=== PATIENT | male | born 1960 | race African-American/Black ===

== ENCOUNTER 2016-12-17 16:49 | Emergency (ER) | payer SELFPAY ==
[~2016-12-17] VITALS: Ht 182.9 cm; Wt 77.1 kg
[2016-12-17 18:30] LABS: BASO % 0.8 % (0.0-1.0); EOS # 0.3 K/mm3 (0.0-0.50); EOS % 5.2 % (0.0-3.0); LARGE UNSTAINED CELL # 0.2 K/mm3 (0.0-0.4); LARGE UNSTAINED CELL % 2.5 % (0.0-4.0); LYMPH # 1.3 K/mm3 (1.5-4.5); LYMPH % 20.9 % (24.0-44.0); MEAN CORPUSCULAR HEMOGLOBIN 32.6 pg (27.0-33.0); MEAN CORPUSCULAR HGB CONC 33.3 g/dl (32.0-36.5); MEAN CORPUSCULAR VOLUME 97.7 fl (80.0-96.0); MONO # 0.4 K/mm3 (0.0-0.8); MONO % 6.4 % (0.0-5.0); NEUTROPHILS % 64.2 % (36.0-66.0); PLATELET COUNT, AUTOMATED 270 k/mm3 (150-450); WHITE BLOOD COUNT 6.2 K/mm3 (4.0-10.0)
[2016-12-17 19:03] LABS: ALBUMIN 3.3 GM/DL (3.2-5.2); ALBUMIN/GLOBULIN RATIO 0.85 (1.00-1.93); ALKALINE PHOSPHATASE 103 U/L (45-117); ALT/SGPT 50 U/L (12-78); ANION GAP 5 MEQ/L (8-16); AST/SGOT 27 U/L (15-37); BILIRUBIN,DIRECT < 0.1 MG/DL (0.0-0.2); BILIRUBIN,TOTAL 0.3 MG/DL (0.2-1.0); BLOOD UREA NITROGEN 15 MG/DL (7-18); CALCIUM LEVEL 8.1 MG/DL (8.5-10.1); CARBON DIOXIDE LEVEL 29 MEQ/L (21-32); CHLORIDE LEVEL 107 MEQ/L (98-107); CREATININE FOR GFR 1.04 MG/DL (0.70-1.30); GLOMERULAR FILTRATION RATE > 60.0 (>56); GLUCOSE, FASTING 98 MG/DL (70-105); POTASSIUM SERUM 4.2 MEQ/L (3.5-5.1); SODIUM LEVEL 141 MEQ/L (136-145); T UPTAKE 38 % (33-40); THYROXINE (T4) 5.7 UG/DL (4.5-12.0); TOTAL PROTEIN 7.2 GM/DL (6.4-8.2)
[2016-12-17] MEDS ORDERED: HYDR25T PO (19:17)
[2016-12-17] MEDS ORDERED: PRED20TA PO (19:17)
[2016-12-17 19:30] VITALS: BP 143/93
== END 2016-12-17 19:37 | disposition home or self-care (01) ==
LOC: M ED 18:11
DX: L30.9 Dermatitis, unspecified (principal); F17.200 Nicotine dependence, unspecified, uncomplicated

== ENCOUNTER 2018-08-02 13:45 | Emergency (ER) | payer MEDICAID, SELFPAY ==
[~2018-08-02] VITALS: Ht 182.9 cm; Wt 77.3 kg
[~2018-08-02 13:45] MED LIST: HYDR-3363 PO; PRED20TA PO
[2018-08-02 14:15] LABS: BASO % 0.3 % (0.0-1.0); EOS % 0.5 % (0.0-3.0); HEMATOCRIT 35.1 % (42.0-52.0); HEMOGLOBIN 11.5 g/dl (13.5-17.5); LYMPH # 1.4 10^3/uL (1.5-4.5); LYMPH % 17.6 % (24.0-44.0); MEAN CORPUSCULAR HEMOGLOBIN 29.8 pg (27.0-33.0); MEAN CORPUSCULAR HGB CONC 32.8 g/dl (32.0-36.5); MEAN CORPUSCULAR VOLUME 90.9 fl (80.0-96.0); MONO # 0.8 10^3/uL (0.0-0.8); MONO % 10.7 % (0.0-5.0); NEUTROPHILS # 5.5 10^3/uL (1.8-7.7); NEUTROPHILS % 70.5 % (36.0-66.0); PLATELET COUNT, AUTOMATED 415 10^3/uL (150-450); RED BLOOD COUNT 3.86 10^6/uL (4.30-6.10); WHITE BLOOD COUNT 7.8 10^3/uL (4.0-10.0)
[2018-08-02] MEDS ORDERED: IPRATROPIUM 0.5MG/ALBUTEROL 2.5MG INH SOL UD 3ML (DUONEB)(J7620) NEB ONE (14:15)
[2018-08-02] MEDS ORDERED: dexameTHASONE 20 MG/5 ML VIAL (J1100) IV ONE (14:15)
[2018-08-02 14:26] LABS: INR 1.35; PROTHROMBIN TIME 16.9 SECONDS (12.1-14.4)
[2018-08-02 14:32] LABS: PARTIAL THROMBOPLASTIN TIME 30.8 SECONDS (25.4-37.6)
[2018-08-02 14:44] LABS: BLOOD UREA NITROGEN 9 MG/DL (7-18); CALCIUM LEVEL 8.1 MG/DL (8.5-10.1); CARBON DIOXIDE LEVEL 29 MEQ/L (21-32); CHLORIDE LEVEL 98 MEQ/L (98-107); CK-MB VALUE MASS < 1.0 NG/ML (<3.6); CPK CREATINE PHOSPHOKINASE 30 U/L (39-308); GLOMERULAR FILTRATION RATE > 60.0 (>56); GLUCOSE, FASTING 166 MG/DL (70-100); MB/CK RELATIVE INDEX 3.33 (< OR =4); POTASSIUM SERUM 3.8 MEQ/L (3.5-5.1); SODIUM LEVEL 134 MEQ/L (136-145); TROPONIN I < 0.02 NG/ML (< 0.10)
--- NOTE | 2018-08-02 14:52 | ECGEPIP ---
Stationary ECG Study [facility] - ED Test Date: 2018-08-02 Pat Name: BUZZ MILLER Department: Room: - Gender: M [facility]: : 1960 Requested By: Crystal Vick Order Number: [id number] Reading MD: Crystal Vick Measurements Intervals [employer] Rate: 101 P: 74 WV: 169 QRS: 62 QRSD: 92 T: 57 QT: 340 QTc: 441 Interpretive Statements SINUS TACHYCARDIA ABNORMAL RHYTHM ECG NSTTW ABNORMALITY DELAYED R PROGRESSION NO PRIOR FOR COMPARISON Electronically Signed On 08-02-2018 14:52:34 EST by Crystal Vick
[2018-08-02] MEDS ORDERED: KETOROLAC 30 MG/ML VIAL (J1885) IV ONE (15:00)
--- NOTE | 2018-08-02 15:11 | REP ---
Chest two views HISTORY: Chest pain Comparison: None A soft tissue mass is present in the right suprahilar area. The left lung is clear. The heart is normal in size. The pulmonary vasculature is normal in appearance. The bony structure is intact. IMPRESSION: Right suprahilar soft tissue mass. CT of the chest may be helpful for further evaluation. Electronically Signed by Dae Dang MD 08/02/2018 03:03 P
[2018-08-02 15:15] VITALS: BP 125/74
--- NOTE | 2018-08-03 06:52 | ED PDOC ---
Post-Departure Follow-Up certified letter sent to pt re formal read of cxr. needs ct and follow up. when pt calls back refer to [facility] if no [facility] and fax cxr report there and provide contact info. also write rx for ct chest wtih pt to c/b to ed. Lisbet Valladares MD Aug 03, 2018 06:52
== END 2018-08-02 15:25 | disposition home or self-care (01) ==
LOC: M ED 13:45
DX: J40 Bronchitis, not specified as acute or chronic (principal)
CPT/HCPCS: 36415; 71046; 80048; 82550; 82553; 85025; 85610; 85730; 93005; 94640; 96374; 96375; 99284; J1100

== ENCOUNTER → 2018-08-13 | Outpatient (REF) | payer MEDICAID ==
[2018-08-13 13:01] LABS: BASO % 0.2 % (0.0-1.0); EOS % 0.3 % (0.0-3.0); HEMATOCRIT 36.3 % (42.0-52.0); HEMOGLOBIN 11.6 g/dl (13.5-17.5); LYMPH # 1.3 10^3/uL (1.5-4.5); LYMPH % 14.6 % (24.0-44.0); MEAN CORPUSCULAR HEMOGLOBIN 29.4 pg (27.0-33.0); MEAN CORPUSCULAR VOLUME 91.9 fl (80.0-96.0); MONO % 11.4 % (0.0-5.0); NEUTROPHILS # 6.7 10^3/uL (1.8-7.7); PLATELET COUNT, AUTOMATED 455 10^3/uL (150-450); RED BLOOD COUNT 3.95 10^6/uL (4.30-6.10); WHITE BLOOD COUNT 9.1 10^3/uL (4.0-10.0)
[2018-08-13 13:13] LABS: ALBUMIN 1.9 GM/DL (3.2-5.2); ALT/SGPT 32 U/L (12-78); BILIRUBIN,TOTAL 0.5 MG/DL (0.2-1.0); BLOOD UREA NITROGEN 9 MG/DL (7-18); CALCIUM LEVEL 7.7 MG/DL (8.5-10.1); CARBON DIOXIDE LEVEL 27 MEQ/L (21-32); CHLORIDE LEVEL 102 MEQ/L (98-107); CHOLESTEROL LEVEL 88 MG/DL (<200); CHOLESTEROL RISK RATIO 2.933 (<5); CREATININE FOR GFR 0.55 MG/DL (0.70-1.30); GLOMERULAR FILTRATION RATE > 60.0 (>56); GLUCOSE, FASTING 106 MG/DL (70-100); HDL CHOLESTEROL 30 MG/DL (>40); LDL CHOLESTEROL 50 MG/DL (<100); NON-HDL-C 58 MG/DL; POTASSIUM SERUM 3.8 MEQ/L (3.5-5.1); SODIUM LEVEL 136 MEQ/L (136-145); TOTAL PROTEIN 7.6 GM/DL (6.4-8.2); TRIGLYCERIDES LEVEL 42 MG/DL (<150)
[2018-08-13 13:16] LABS: PTH INTACT 52.6 PG/ML (18.5-88.0); TOTAL 25(OH) VITAMIN D 9.5 NG/ML (30.0-100.0)
[2018-08-13 13:24] LABS: HEMOGLOBIN A1c 6.9 %
[2018-08-13 13:55] LABS: AMORPHOUS SEDIMENT SMALL (NEGATIVE); APPEARANCE, URINE HAZY (CLEAR); BACTERIA, URINE AUTO NEGATIVE (NEGATIVE); BILIRUBIN, URINE AUTO 1+ (NEGATIVE); BLOOD, URINE BLOOD NEGATIVE (NEGATIVE); COLOR, URINE AMBER (YELLOW); GLUCOSE, URINE (UA) AUTO NEGATIVE (NEGATIVE); KETONE, URINE AUTO NEGATIVE (NEGATIVE); LEUKOCYTE ESTERASE, URINE AUTO 1+ (NEGATIVE); MUCUS, URINE SMALL (NEGATIVE); NITRITE, URINE AUTO NEGATIVE (NEGATIVE); PROTEIN, URINE AUTO 1+ mg/dL (NEGATIVE); RBC, URINE AUTO 5 /HPF (0-3); SPECIFIC GRAVITY URINE AUTO 1.023 (1.002-1.035); SQUAMOUS EPITHELIAL CELL UR AU 1 /HPF (0-6); WBC, URINE AUTO 45 /HPF (0-3)
[2018-08-13 13:56] LABS: HIV 1&2 SCREEN CENTAUR NEGATIVE (NEGATIVE)
== END ==
LOC: M SFHCPLAZ 10:27
PROVIDERS: ATTEND Nurse Practitioner Family
DX: Z12.5 Encounter for screening for malignant neoplasm of prostate (principal); Z13.220 Encounter for screening for lipoid disorders; D64.9 Anemia, unspecified; R91.8 Other nonspecific abnormal finding of lung field; R73.01 Impaired fasting glucose; R61 Generalized hyperhidrosis; E55.9 Vitamin D deficiency, unspecified; R55 Syncope and collapse; R05 Cough; R31.9 Hematuria, unspecified

== ENCOUNTER → 2018-08-23 | Outpatient (CLI) | payer MEDICAID ==
[~2018-08-23] MED LIST changes: +ISOVUE-370 76% 100ML VIAL (Q9967) As Ordered ONE
--- NOTE | 2018-08-23 18:33 | REP ---
Chest CT with IV contrast: History: Hilar mass. Comparison chest x-rays from August 02, 2018. CT contrast dose: 75 mL of intravenous Isovue 370. CT findings: There is a small right pleural effusion. There is a moderate-sized pericardial effusion. No left pleural effusion is noted. CT study confirms the presence of fairly bulky right paratracheal, precarinal, left suprahilar, and subcarinal lymphadenopathy. Right hilar adenopathy is also noted. The confluent pretracheal adenopathy measures up to 6.9 cm in right to left dimension. The superior vena cava is compressed anteriorly although not enveloped by the mass. It is quite narrowed however. The right hilar pulmonary arterial tree is somewhat attenuated as the draining pulmonary veins at the level of the adenopathy. No adrenal mass lesion is seen. There is a cyst in the upper pole of the left kidney which measures 2.9 cm in greatest diameter. There is a right supraclavicular and right subclavian adenopathy. The spleen does not appear to be enlarged. On lung window settings, there is no identifiable lung mass lesion. There is a calcified granuloma in the right middle lobe. There is an 8 mm ground-glass opacity in the left upper lobe posteriorly adjacent to the major fissure. No other pulmonary nodule is appreciated. The bulky mediastinal adenopathy displaces the trachea to the left somewhat and posteriorly. It is mildly narrowed as well. Impression: Bulky right hilar and mediastinal lymphadenopathy compatible with locally advanced primary lung carcinoma versus lymphoma. There is a moderate pericardial effusion and there is a small right pleural effusion. The superior vena cava is displaced anteriorly and quite narrowed although not enveloped. It is patent. The trachea is displaced posteriorly somewhat to the left and mildly narrowed. There appears to be a right supraclavicular and right subclavian adenopathy. Ultrasound guided fine needle aspiration or cutting needle biopsy of right supraclavicular adenopathy may be feasible. Electronically Signed by Steve Kemp MD 08/24/2018 08:08 A
--- NOTE | 2018-08-23 19:11 | REP ---
RENAL AND BLADDER ULTRASOUND: Real-time sonographic evaluation of the kidneys is performed and demonstrates both kidneys to be normal in size and echotexture, right kidney measuring 13.7 x 4.9 x 4.6 cm and left kidney 12.2 x 5.6 x 5.4 cm. There is no hydronephrosis bilaterally. There is a cyst of the upper pole of the left kidney 2.2 x 1.6 x 1.8 cm. No definite renal stone is seen. The urinary bladder is mildly distended with no gross mass or calculus. Volume is 59 mL. IMPRESSION: Cyst upper pole left kidney 2.2 cm in maximum diameter. No other renal or bladder abnormality identified. Electronically Signed by Antione Huertas MD 08/23/2018 07:59 P
== END ==
LOC: M RAD 15:23
PROVIDERS: ATTEND Nurse Practitioner Family
DX: R31.9 Hematuria, unspecified (principal)
CPT/HCPCS: 71260; 76775; Q9967

== ENCOUNTER → 2018-09-14 | Outpatient (CLI) | payer OTHER ==
[~2018-09-14] MED LIST changes: +DEXA4TA PO; +HYDR-3713 PO; +IRON27TA2 PO; -ISOVUE-370 76% 100ML VIAL (Q9967) As Ordered ONE; +MAGICMW SSP; +MULTCAP PO; +OMEP20CA3 PO; +PROA1AER2 IN
== END ==
LOC: M ONCR 15:00
PROVIDERS: ATTEND Radiology Radiation Oncology
DX: C34.90 Malignant neoplasm of unspecified part of unspecified bronchus or lung (principal)

== ENCOUNTER 2018-09-15 16:48 | Outpatient (CLI) | payer MEDICAID ==
[~2018-09-15] VITALS: Ht 182.9 cm; Wt 71.8 kg
[~2018-09-15 16:48] MED LIST changes: -GASTROGRAFIN SOLUTION 30ML (Q9963) As Ordered ONE; -ISOVUE-370 76% 100ML VIAL (Q9967) As Ordered ONE
[2018-09-15 17:00] VITALS: BP 124/68
[2018-09-15] MEDS ORDERED: diphenhydrAMINE 50 MG CAP PO ONE (17:30)
[2018-09-15] MEDS ORDERED: ACETAMINOPHEN TAB 650MG DOSE (2X325MG) PO ONE (17:30)
[2018-09-15 20:00] VITALS: BP 104/58
[2018-09-15 20:55] VITALS: BP 103/69
[2018-09-15 22:00] VITALS: BP 98/54
[2018-09-15 22:47] VITALS: BP 103/59
[2018-09-20] MEDS ORDERED: HYDR-3713 PO (10:39)
[2018-09-30] MEDS ORDERED: MAGICMW SSP (09:36)
[2018-09-30] MEDS ORDERED: OMEP20CA3 PO (09:38)
== END 2018-09-15 23:35 | disposition home or self-care (01) ==
LOC: M OPCLI5PR 16:48 → M MS5PR 16:51 → M OPCLI5PR 23:35
PROVIDERS: ATTEND Internal Medicine Medical Oncology
DX: D64.9 Anemia, unspecified (principal); C34.90 Malignant neoplasm of unspecified part of unspecified bronchus or lung
CPT/HCPCS: 36415; 36430; 80053; 82378; 85027; 86850; 86900; 86901; 86920; 99215; P9016

== ENCOUNTER → 2018-09-15 | Outpatient (CLI) | payer MEDICAID, OTHER ==
[~2018-09-15] MED LIST changes: +GASTROGRAFIN SOLUTION 30ML (Q9963) As Ordered ONE; +ISOVUE-370 76% 100ML VIAL (Q9967) As Ordered ONE; -MAGICMW SSP; -OMEP20CA3 PO
--- NOTE | 2018-09-15 11:16 | REP ---
CT Head without and with contrast HISTORY: Lung carcinoma CONTRAST: Isovue 370 75 ml COMPARISON: None There is no intraparenchymal hemorrhage, acute infarct, mass or midline shift. There is no abnormal enhancement. The ventricular system is normal in appearance. The cortical sulci are dilated consistent with minimal volume loss. There is no extra cerebral collection. The visualized sinuses are clear. Impression: 1. There is no intracranial lesion. 2. Minimal volume loss. Electronically Signed by Dae Dang MD 09/15/2018 11:07 A
--- NOTE | 2018-09-15 11:19 | REP ---
Clinical: Adenocarcinoma of the right lung. Technique: Axial contrast enhanced images from the thoracic inlet to the upper abdomen with coronal and sagittal re-formations using 100 ml Isovue 370 intravenous contrast material. Comparison: 08/23/2018. Findings: Severe bulky mediastinal and predominantly right hilar adenopathy is again identified and essentially unchanged. Right supraclavicular adenopathy is also noted and stable. The tracheobronchial tree remains patent and essentially midline. The superior vena cava appears somewhat compressed but remains patent. Right hilar adenopathy causes mild to moderate compression of the right upper lobe pulmonary artery and right pulmonary veins which remain stable. Thoracic aorta is essentially normal. Stable cardiomegaly noted. Moderate pericardial effusion is unchanged. The bilateral lung jones are relatively clear and without focal area of consolidation or mass. Calcified granuloma in the right middle lobe remains stable. Small right pleural effusion is again identified. Osseous structures are intact and without focal osseous abnormality. Limited upper abdomen demonstrates stable mild prominence to the right adrenal gland which is nonspecific. Left renal cyst again noted. Impression: 1. The above findings including bulky mediastinal and right hilar adenopathy as well as pericardial effusion and right pleural effusion remain unchanged. 2. No new process identified. Electronically Signed by Jose Dsouza MD 09/15/2018 11:10 A
--- NOTE | 2018-09-15 11:22 | REP ---
Clinical: History of a advanced lung adenocarcinoma. Technique: Axial contrast enhanced images from the lung bases to the pubic symphysis using oral (per protocol) and 100 ml Isovue 370 intravenous contrast material. Comparison: None. Findings: Lung bases demonstrate moderate pericardial effusion and small right pleural effusion. Liver, spleen, pancreas, gallbladder, left adrenal gland and right kidney appear normal. The left adrenal gland demonstrates subtle fullness which may reflect hyperplastic change but underlying pathology including metastatic disease cannot be excluded. Right kidney includes 2.7 cm hypodensity most compatible with cyst. The enteric system is without obstruction or acute inflammatory process. Pelvis demonstrates normal bladder along with enlarged prostate gland measuring 5.3 cm maximal transverse diameter and having mass effect on the base of the bladder. Small amount of ascites identified. No intraperitoneal or significant retroperitoneal adenopathy is appreciated. No abdominal mass lesion identified. Aorta and vasculature without aneurysm or dissection. Musculoskeletal structures demonstrate degenerative changes without focal osseous abnormality. Impression: 1. Small right pleural effusion and moderate pericardial effusion. 2. Prominence to the right adrenal gland is nonspecific. 3. 2.7 cm right renal hypodensity likely cyst may be followed by ultrasound. 4. Enlarged prostate gland with mass effect on the base of the bladder. 5. No evidence for metastatic disease. Electronically Signed by Jose Dsouza MD 09/15/2018 11:13 A
--- NOTE | 2018-09-15 19:39 | ECHO ---
DATE OF PROCEDURE: 09/15/2018 REFERRING PHYSICIAN: Adilia Taylor MD PATIENT LOCATION: Outpatient REASON FOR ECHOCARDIOGRAM: Pericardial effusion noted on CT scan. Patient recently diagnosed with lung cancer. 2D MEASUREMENTS: IVS: 1.0 cm LV: 5.3 cm LVPW: 1.0 cm LA: 3.3 cm Aorta: 3.1 cm IVC: 2.2 cm DOPPLER MEASUREMENTS: Peak velocity across the aortic valve: 1.4 m/s Peak velocity across the LVOT: 0.85 m/s Mitral E: 0.55, Mitral A: 0.71, with a ratio of 0.8 Maximum tricuspid valve velocity: 2.1 m/s 2D COMMENTS: 1. Normal left ventricular size and wall thickness, but with a mildly depressed global left ventricular systolic function. There was mild global hypokinesis. The estimated left ventricular systolic ejection fraction is 45 to 50%. 2. Normal left atrium. Normal right atrium and right ventricle. 3. The atrial septum appeared to be normal without evidence of defect or shunt. 4. Normal aortic root. 5. Small pericardial effusion noted, no evidence of cardiac tamponade. 6. The inferior vena cava was mildly enlarged, but with good collapse with respiratory variation. DOPPLER: It detects trace aortic regurgitation, trace mitral regurgitation, trace tricuspid regurgitation, and trace pulmonic regurgitation. The calculated pulmonary artery systolic pressure was normal. Abnormal relaxation pattern was noted across the mitral valve leaflets. IMPRESSION: 1. Mildly depressed global left ventricular systolic function with mild global hypokinesis. There are some features of left ventricular diastolic dysfunction manifested by abnormal relaxation. 2. Aortic valve sclerosis with trace aortic regurgitation, but no aortic stenosis. 3. Trace mitral regurgitation. 4. Trace tricuspid regurgitation with a normal calculated pulmonary artery systolic pressure. 5. Small pericardial effusion, no evidence of cardiac tamponade. 6. The inferior vena cava was mildly enlarged, central venous pressure might be elevated. 7. The echocardiogram was ordered as a stat because of pericardial effusion noted on the CT scan and ordering physician was informed about the findings. MEHNAZ
== END ==
LOC: M RAD 09:07
PROVIDERS: ATTEND Internal Medicine Medical Oncology
DX: C34.90 Malignant neoplasm of unspecified part of unspecified bronchus or lung (principal); I31.3 Pericardial effusion (noninflammatory); R55 Syncope and collapse; I87.1 Compression of vein; I35.0 Nonrheumatic aortic (valve) stenosis; J90 Pleural effusion, not elsewhere classified; R93.421 Abnormal radiologic findings on diagnostic imaging of right kidney; N40.0 Benign prostatic hyperplasia without lower urinary tract symptoms; N32.9 Bladder disorder, unspecified
CPT/HCPCS: 70470; 71260; 74177; 93306; Q9963; Q9967

== ENCOUNTER → 2018-09-16 | Outpatient (RCR) | payer MEDICAID, OTHER ==
[~2018-09-16] MED LIST changes: +MAGICMW SSP; +OMEP20CA3 PO
--- NOTE | 2018-09-20 10:12 | RADONC ---
RADIATION ONCOLOGY SIMULATION NOTE DATE: 09/14/2018 CHART NUMBER: [id number] Mr. Wu was taken to the CT scan for CT simulation of his lung field. CT was accomplished without difficulty or discomfort. Radiation treatment planning is underway and radiation treatments will begin subsequently. An immobilization device was created and will be used throughout the course of treatment. It was created without difficulty or discomfort. I was physically present throughout the course of CT simulation.
--- NOTE | 2018-09-20 10:32 | RADONC ---
RADIATION ONCOLOGY CONSULTATION NOTE DATE: 09/14/2018 CHART NUMBER: [id number] DIAGNOSIS: Right lung cancer. STAGE: IV, [id number]. ECOG PERFORMANCE STATUS: 1. CONSULTATION NOTE: Mr. Wu is a 58-year-old male who is presenting to us today with a large mediastinal mass with SVC compression for consideration of urgent palliative radiation therapy in an attempt to avoid SVC syndrome and obtain some type of local control. HISTORY OF PRESENT ILLNESS: The patient was in his usual state of health but over the past several months has developed anorexia with increasing weight loss. He reports increasing shortness of breath as well as in addition to right neck and right scapula pain. Chest x-ray was undertaken on August 02 which revealed a right suprahilar soft tissue mass. Subsequent CT scan done 08/23/2018 revealed large bulky right hilar and mediastinal lymphadenopathy compatible with a locally advanced primary lung cancer versus a lymphoma. There was noted to be superior vena caval compression anteriorly although it was thought that the mass did not envelop the superior vena cava. The right hilar pulmonary tree was somewhat attenuated as well. The confluent paratracheal adenopathy measured up to 6.9 cm in right to left direction. On 09/06/2018 the patient underwent an FNA of a supraclavicular lymph node and pathology was positive for malignancy consistent with a high-grade poorly differentiated adenocarcinoma of lung primary. It was noted that the tumor had PD-L1 low expression at 20%. The patient has been referred to me for discussion of urgent radiation therapy in an attempt to avoid progression to full SVC syndrome and an attempt to achieve some type of local control. PAST MEDICAL HISTORY: The patient's past medical history is positive for a history of some type of seizures. He has been in otherwise good health. ALLERGIES: The patient has no known drug allergies. SOCIAL HISTORY: The patient has smoked at least 1-1/2 packs of cigarettes per day for 40 years. He also has a history of significant alcohol use. FAMILY HISTORY: The patient's family history is unknown. REVIEW OF SYSTEMS: The patient's review of systems is positive for headaches which have been going on for months. He also has anorexia and a 5 pound weight loss. He reports some dizziness and fainting with coughing. He has weakness and reports occasional fevers and decreased energy. He is also short of breath. He denies nausea, vomiting, urinary or bowel difficulties or bone pain. PHYSICAL EXAMINATION: The patient is a rather thin black male in no acute distress. HEENT: Exam is normocephalic, atraumatic. Extraocular movements are intact. There is no palpable cervical, supraclavicular, infraclavicular or axillary lymphadenopathy present. His lungs are generally clear with some occasional wheezing. His heart has a regular rate and rhythm. His abdomen is benign with no hepatosplenomegaly, masses or tenderness. Skeletal examination reveals no tenderness to pressure or percussion of the bony skeleton. ASSESSMENT: I believe the patient is a candidate for palliative radiation therapy and I have so informed him. I have discussed with the patient in detail the potential benefits as well as possible acute and chronic sequelae of external beam radiation therapy. I have scheduled the patient for simulation to be done today in order to expedite initiation of treatment. We will coordinate further care with his medical oncologist, Dr. Taylor. Unfortunately, the patient's disease is rather extensive and we are delivering a large treatment field. The disease extends from his lower hilar area throughout the mediastinum bilaterally all the way into his neck. This may lead to significant toxicity if combined with systemic therapy. I have just had a discussion with Dr. Taylor about this issue. In addition I am ordering further testing including pulmonary function tests and a differential lung scan to be undertaken. I have ordered a PET scan for further staging and I will be ordering an MRI of the patient's brain for staging as well. The meantime radiation will be expedited to his present urgent situation. I have planned to treat this patient for seven fractions before reevaluation for pulmonary functions will become necessary. He is already short of breath and they will be a significant amount of lung tissue in this field. We will work on expediting his differential lung scan and pulmonary functions so that radiation can continue without interruption if possible. cc: Adilia Taylor MD
--- NOTE | 2018-09-21 10:02 | RADONC ---
RADIATION ONCOLOGY PROGRESS NOTE DATE: 09/20/2018 CHART NUMBER: [id number] Mr. Wu is presently at a dose of 800 cGy to his mediastinum and is tolerating treatments quite well at this point with no complaints related to his radiation therapy. The patient's review of systems is positive for continued discomfort and pain for which he is receiving pain medication from Dr. Taylor. PHYSICAL EXAMINATION: The patient's skin is in good condition with no evidence of radiation change present. There is no moist or dry desquamation. The remainder of his physical exam remains unchanged. Mr. Wu is tolerating treatments quite well and radiation will continue as scheduled. I had scheduled the patient for an MRI of the brain as well as a PET/CT scan and in addition pulmonary functions and a differential lung scan. I am awaiting those results. I have written for a prescription for seven fractions and then we will make adjustments accordingly according to the pulmonary function tests. Radiation will continue with the meantime.
== END ==
LOC: M ONCR 09-14 15:46
PROVIDERS: ATTEND Radiology Radiation Oncology
DX: C34.91 Malignant neoplasm of unspecified part of right bronchus or lung (principal)

== ENCOUNTER → 2018-09-21 | Outpatient (CLI) | payer OTHER ==
[~2018-09-21] MED LIST changes: -MAGICMW SSP; -OMEP20CA3 PO
--- NOTE | 2018-09-21 14:45 | PFTRPT ---
Height: 72.00 Inches Weight: 157.00 Lbs BSA: 1.92 Diagnosis: Lung CA DATE OF PROCEDURE: 09/21/2018 ORDERING PROVIDER: Dr. Antione Ceja Spirometry: Pre and post bronchodilator study of excellent technical quality. Forced vital capacity reduced. FEV1 out of proportion. Obstructive index is, therefore, reduced. Flow Volume Loop: Expiratory limb of the flow volume loop is consistent with flow rate limitation. No significant bronchodilator response is identified. Lung Volumes: Total lung capacity normal. Residual volume consistent with air trapping. Diffusing Capacity: Diffusing capacity is reduced but does correct for alveolar volume. Hemoglobin: No hemoglobin available for correction. Airway Mechanics: Airway resistance and conductance are normal. IMPRESSION: Moderate obstructive ventilatory impairment with underlying air trapping. Please correlate clinically. MTDD
== END ==
LOC: M CARPUL 07:57
PROVIDERS: ATTEND Radiology Radiation Oncology
DX: C34.91 Malignant neoplasm of unspecified part of right bronchus or lung (principal)

== ENCOUNTER → 2018-09-24 | Outpatient (CLI) | payer OTHER ==
[~2018-09-24] MED LIST changes: +MAGICMW SSP; +OMEP20CA3 PO
--- NOTE | 2018-09-24 13:44 | REP ---
Brain MRI without contrast: History: Lung carcinoma. Comparison head CT study September 15, 2018. Technique: Axial T2, diffusion weighted, and FLAIR images were accomplished. At this point in the exam, the patient was unable to continue with further imaging. The exam was terminated. Findings: There is mild motion artifact. There is no evidence of intracranial mass lesion. Diffusion-weighted scans show no evidence of restricted diffusion. No extra-axial fluid collection is seen. There is no evidence of infarct, mass or midline shift. Impression: Negative limited noncontrast MRI study of the brain. No intracranial mass lesion is visible. Electronically Signed by Steve Kemp MD 09/24/2018 06:16 P
== END ==
LOC: M PLARAD 11:44
PROVIDERS: ATTEND Radiology Radiation Oncology
DX: C34.91 Malignant neoplasm of unspecified part of right bronchus or lung (principal)

== ENCOUNTER → 2018-09-29 | Outpatient (CLI) | payer OTHER ==
--- NOTE | 2018-09-29 16:37 | REP ---
DIFFERENTIAL LUNG SCAN VENTILATION-PERFUSION: 09/29/2018. Clinical history: Right lung carcinoma. Technique: The patient received 1.1 mCi technetium 99m MAA via an IV and 2.0 mCi technetium 99m DTPA aerosol for perfusion and ventilation images. Anterior and posterior static images were obtained for each phase. Percent ratios are calculated for upper, mid and lower portions in each projection for each lung. Eight geometric mean shows left lung perfusion 50.96%, right 49.04%. The geometric mean shows a left lung ventilation 57.78%, right 42.22%. Perfusion: Left: Right: Upper: 11.43% 9.24% Middle: 24.17% 19.41% Lower 15.37% 20.38% Ventilation: Left: Right: Upper: 8.61% 7.45% Middle: 31.58% 16.09% Lower: 17.6% 18.67% Electronically Signed by Scott Link MD 09/29/2018 04:29 P
--- NOTE | 2018-09-30 03:13 | REP ---
Clinical: Chest pain. Lung cancer. Technique: PA and lateral. Comparison: 08/02/2018. Findings: Right hilar mass / adenopathy and subtle associated streaky right perihilar opacities suggesting elements of atelectasis/infiltrate again identified. Small amount of right-sided pleural fluid noted. No pneumothorax. Left hemithorax is relatively well aerated and clear. The cardiac silhouette is normal. The skeletal structures are intact. Impression: Stable right hilar mass / adenopathy and subtle right perihilar streaky atelectasis/infiltrate. Electronically Signed by Jose Dsouza MD 09/30/2018 03:05 A
== END ==
LOC: M RAD 13:01
PROVIDERS: ATTEND Radiology Radiation Oncology
DX: C34.91 Malignant neoplasm of unspecified part of right bronchus or lung (principal)
CPT/HCPCS: 71046; 78598; A9540; A9567

== ENCOUNTER → 2018-10-05 | Outpatient (CLI) | payer MEDICAID, OTHER ==
--- NOTE | 2018-10-05 18:21 | REP ---
PET/CT: History: Initial staging lung carcinoma. Needle biopsy right supraclavicular node, diagnosis of high-grade poorly differentiated adenocarcinoma, lung primary. Comparisons: Comparison CT study of the chest September 15, 2018. TECHNIQUE: 63 minutes following the intravenous injection of a 9.40 mCi dose of F-18 FDG, three-dimensional PET scintigraphy is acquired from the skull base to the proximal thighs. Triplanar noncontrast CT scanning is acquired through the same anatomic range for attenuation correction, and image registration with scan parameters optimized to minimize radiation exposure to the patient. PET scintigraphy and CT datasets were fused and displayed on a workstation with multiplanar and projection display capability. PET/CT Findings: There is hypermetabolic uptake in mild right supraclavicular lymphadenopathy with maximum standard uptake value here of 8.46. There is mildly hypermetabolic uptake in a small lymph node in the left supraclavicular region with maximum standard uptake value 4.06. There is hypermetabolic scarlet uptake in the right subclavian region, maximum standard uptake value 6.2. Hypermetabolic uptake is seen in bulky bilateral mediastinal scarlet disease. Maximum standard uptake value in the mediastinal lymphadenopathy is 14.73. There is right hilar hypermetabolic uptake as well. A small pericardial and a small right pleural effusion is seen without hypermetabolic pleural or pericardial uptake appreciated. There is mildly hypermetabolic uptake in a small area of thickening of the right adrenal gland. Maximum standard uptake value here is 3.66. This must be considered suspicious for metastatic site. No other abnormal hypermetabolic uptake is seen in the abdomen or pelvis. No abnormal skeletal hypermetabolic uptake is appreciated. Impression: Hypermetabolic uptake is seen in the right hilus, bilaterally in the mediastinum, bilateral supraclavicular, and right subclavian lymph node chains. A right adrenal focus is seen consistent with a metastasis. Electronically Signed by Steve Kemp MD 10/05/2018 07:58 P
== END ==
LOC: M PLARAD 08:47
PROVIDERS: ATTEND Radiology Radiation Oncology
DX: C34.91 Malignant neoplasm of unspecified part of right bronchus or lung (principal)
CPT/HCPCS: 78815; A9552

== ENCOUNTER 2018-10-11 09:48 | Outpatient (RCR) | payer MEDICAID, OTHER ==
--- NOTE | 2018-09-28 15:32 | RADONC ---
RADIATION ONCOLOGY PROGRESS NOTE DATE: 09/27/2018 CHART NUMBER: [id number] PROGRESS NOTE: Mr. Wu is presently at a dose of 1800 cGy to his mediastinum and is tolerating treatments quite well at this point with no significant difficulties related to his radiation therapy other than some continued chest wall discomfort. REVIEW OF SYSTEMS: The patient's review of systems is positive for chest wall pain but is otherwise noncontributory. Denies nausea, vomiting, fevers, chills, night sweats, diplopia, headaches, anxiety or depression, anorexia, weight loss, visual disturbances, chest pain, urinary or bowel difficulties, bone pain, or neurological problems. PHYSICAL EXAMINATION: The patient's skin is in good condition with no evidence of moist or dry desquamation. The remainder of his physical exam remains unchanged. Mr. Wu is tolerating treatments quite well and radiation will continue as scheduled.
--- NOTE | 2018-10-05 07:56 | RADONC ---
RADIATION ONCOLOGY PROGRESS NOTE: DATE: 10/04/2018 CHART NUMBER: [id number] Mr. Wu is presently at a dose of 2800 cGy to his right lung and is tolerating treatments quite well at this point with no significant difficulties related to his radiation therapy. He is able to swallow and has no increased shortness of breath. REVIEW OF SYSTEMS: The patient's review of systems is noncontributory. He denies nausea, vomiting, fevers, chills, night sweats, diplopia, headaches, anxiety or depression, anorexia, weight loss, visual disturbances, chest pain, urinary or bowel difficulties, bone pain, or neurological problems. PHYSICAL EXAMINATION: The patient's weight today is 172.6 pounds up from his initial weight of 158.8. He continues to gain weight and is eating ice cream continuously. The patient's skin is in good condition with no evidence of moist or dry desquamation. The remainder of his physical exam remains unchanged. Mr. Wu is tolerating treatments quite well and radiation will continue as scheduled.
--- NOTE | 2018-10-12 08:33 | RADONC ---
RADIATION ONCOLOGY PROGRESS NOTE DATE: 10/11/2018 CHART NUMBER: [id number] Mr. Wu is presently at a dose of 3800 cGy to his right lung and is complaining of a sore throat at this time with discomfort upon swallowing solid foods. He reports that he is drinking fluids and has no difficulty with those. The patient's review of systems is positive for esophagitis and difficulty swallowing foods but is otherwise noncontributory. He denies nausea, vomiting, fevers, chills, night sweats, diplopia, headaches, anxiety or depression, anorexia, weight loss, visual disturbances, chest pain, urinary or bowel difficulties, bone pain, or neurological problems. PHYSICAL EXAMINATION: The patient's skin is in good condition with no evidence of moist or dry desquamation. Unfortunately the patient is now 154.4 pounds, down 8 pounds in the past week. He is, however, a pound more than he was 3 weeks ago. The remainder of his physical exam remains otherwise unchanged. Mr. Wu has a prescription for triple mix but he has not been using it. In light of the fact that this is purely a palliative treatment, I have recommended that he take this week off. We can reevaluate him on Thursday. He has been given dietary instructions and instructed to contact us at any time if he is having any further difficulty swallowing. We did discuss the possibility of IV fluids but the patient does not wish to do that at this time. Mr. Wu is scheduled to see his medical oncologist, Dr. Taylor, later today to discuss future systemic therapy. 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 In light of this, of course, these treatments are purely palliative in attempt to achieve some type of local control and avoid SVC syndrome.
== END 2018-10-17 ==
LOC: M ONCR 09:48
PROVIDERS: ATTEND Radiology Radiation Oncology
DX: C34.91 Malignant neoplasm of unspecified part of right bronchus or lung (principal)

== ENCOUNTER → 2018-10-11 | Outpatient (REF) | payer OTHER | LOC: M LAB REF 13:52 | PROVIDERS: ATTEND Nurse Practitioner Family | DX: R10.9 Unspecified abdominal pain (principal) ==

== ENCOUNTER 2018-10-25 09:54 | Outpatient (RCR) | payer MEDICAID, OTHER ==
--- NOTE | 2018-10-19 14:41 | RADONC ---
RADIATION ONCOLOGY DATE: 10/18/2018 CHART NUMBER: [id number] Mr. Wu is presently at a dose of 4000 cGy to his lung and is tolerating his treatments quite well at this point. He had been on rest for one week. He is now returning with no difficulty swallowing or increased difficulty breathing. REVIEW OF SYSTEMS: The patient's review of systems is noncontributory. He denies nausea, vomiting, fevers, chills, night sweats, diplopia, headaches, anxiety or depression, anorexia, weight loss, visual disturbances, chest pain, urinary or bowel difficulties, bone pain or neurological problems. PHYSICAL EXAMINATION: The patient's skin is in good condition with no evidence of moist or dry desquamation. The remainder of his physical exam remains unchanged. Mr. Wu is tolerating treatments fairly well having now resumed radiation and treatments will continue as scheduled.
--- NOTE | 2018-10-25 11:00 | RADONC ---
RADIATION ONCOLOGY TREATMENT SUMMARY: DATE: 10/25/2018 CHART NUMBER: [id number] DIAGNOSIS: Right lung cancer. STAGE: IV, [id number]. ECOG PERFORMANCE STATUS: 0. Mr. Wu is a very pleasant 58-year-old white male who presented to us with a large mediastinal mass and impending SVC compression and impending SVC syndrome for consideration of urgent radiation therapy to his mediastinal mass. We treated the patient to his mediastinum for a total dose of 5000 cGy delivered in 25 fractions of 200 cGy each over 36 elapsed days from 09/15/2018 through 10/25/2018. The patient's right lung mass and mediastinum were treated on the linear accelerator utilizing a 15 MV photon beam via 3D conformal therapy initially with anterior and posterior parallel post jones subsequently with oblique jones in order to maintain his lungs and other structures within their tolerance limits. Mr. Wu tolerated his treatments quite well and we did achieve palliation of his difficulties. I have scheduled the patient to see me again in 1 month for further followup. In the meantime he is scheduled to be seen by his medical oncologist on Thursday for discussion and initiation of his systemic therapy. Once again the patient was able to complete his palliative radiation therapy without difficulties or interruption in his treatments. His care will now be continued by his medical oncologist and we will continue to follow him closely as well. cc: Adilia Taylor MD
[2018-11-01] MEDS ORDERED: CODE30TA PO ×2 (09:52→10:02)
[2018-11-01] MEDS ORDERED: CODE15TA PO (10:49)
[2018-11-05] MEDS ORDERED: FLUC100T PO (10:09)
[2018-11-05] MEDS ORDERED: FOLI1TAB11 PO (11:02)
[2018-11-05] MEDS ORDERED: DEXA4TA PO (13:49)
[2018-11-09] MEDS ORDERED: LEVA750T7 PO (19:52)
[2018-11-09] MEDS ORDERED: MAG400TA PO (19:52)
[2018-11-11] MEDS ORDERED: FOLI1TAB11 PO (10:21)
== END 2018-11-16 ==
LOC: M ONCR 09:54
PROVIDERS: ATTEND Radiology Radiation Oncology
DX: C34.91 Malignant neoplasm of unspecified part of right bronchus or lung (principal)

== ENCOUNTER 2018-11-05 13:39 | Inpatient (IN) | payer OTHER ==
[~2018-11-05] VITALS: Ht 182.9 cm; Wt 73.0 kg
[2018-11-05] VITALS (13 sets, daily range): BP systolic 81–95; BP diastolic 52–69
[~2018-11-05 13:39] MED LIST changes: -ISOVUE-370 76% 100ML VIAL (Q9967) As Ordered ONE; -LEVA750T7 PO; -MAG400TA PO; -PROA1AER2 IN; +PROA1AER2 INH
[2018-11-05] MEDS ORDERED: DEXA4TA PO (13:49)
[2018-11-05 14:49] LABS: BASO % 0.3 % (0.0-1.0); HEMATOCRIT 28.6 % (42.0-52.0); LYMPH # 0.4 10^3/uL (1.5-4.5); LYMPH % 14.7 % (24.0-44.0); MEAN CORPUSCULAR HEMOGLOBIN 27.4 pg (27.0-33.0); MEAN CORPUSCULAR HGB CONC 31.5 g/dl (32.0-36.5); MEAN CORPUSCULAR VOLUME 87.2 fl (80.0-96.0); MONO # 0.2 10^3/uL (0.0-0.8); MONO % 6.3 % (0.0-5.0); NEUTROPHILS # 2.2 10^3/uL (1.8-7.7); NEUTROPHILS % 78.4 % (36.0-66.0); PLATELET COUNT, AUTOMATED 111 10^3/uL (150-450); RED BLOOD COUNT 3.28 10^6/uL (4.30-6.10); WHITE BLOOD COUNT 2.9 10^3/uL (4.0-10.0)
[2018-11-05 14:59] LABS: INR 1.42; PROTHROMBIN TIME 17.6 SECONDS (12.1-14.4)
[2018-11-05 15:00] LABS: PARTIAL THROMBOPLASTIN TIME 33.5 SECONDS (25.4-37.6)
[2018-11-05] MEDS ORDERED: FLUMAZENIL 0.5 MG/5 ML VIAL As Ordered ONE (15:01)
[2018-11-05] MEDS ORDERED: MIDAZOLAM INJ 2 MG/2 ML VIAL (J2250) As Ordered ONE ×2 (15:01→15:02)
[2018-11-05] MEDS ORDERED: LIDOCAINE 1% MDV 20ML VIAL As Ordered ONE (15:02)
[2018-11-05 15:17] LABS: ALBUMIN 1.4 GM/DL (3.2-5.2); ALT/SGPT 43 U/L (12-78); BILIRUBIN,DIRECT 0.2 MG/DL (0.0-0.2); BILIRUBIN,TOTAL 0.3 MG/DL (0.2-1.0); BLOOD UREA NITROGEN 8 MG/DL (7-18); CALCIUM LEVEL 7.7 MG/DL (8.5-10.1); CARBON DIOXIDE LEVEL 28 MEQ/L (21-32); CHLORIDE LEVEL 99 MEQ/L (98-107); CPK CREATINE PHOSPHOKINASE 49 U/L (39-308); CREATININE FOR GFR 0.45 MG/DL (0.70-1.30); GLOMERULAR FILTRATION RATE > 60.0 (>56); GLUCOSE, FASTING 210 MG/DL (70-100); MB/CK RELATIVE INDEX 2.45 (< OR =4); POTASSIUM SERUM 3.6 MEQ/L (3.5-5.1); SODIUM LEVEL 133 MEQ/L (136-145); TOTAL PROTEIN 5.6 GM/DL (6.4-8.2); TROPONIN I < 0.02 NG/ML (< 0.10)
[2018-11-05] MEDS ORDERED: MIDAZOLAM INJ 2 MG/2 ML VIAL (J2250) IV ONE (15:30)
[2018-11-05] MEDS ORDERED: LIDOCAINE 1% MDV 20ML VIAL SC ONE (15:30)
[2018-11-05] MEDS ORDERED: NS 1,000 ML IV ONE (15:30)
[2018-11-05] MEDS ORDERED: zolPIDEM TARTRATE 5 MG TAB PO PRN (15:45)
[2018-11-05] MEDS ORDERED: PERCOCET 5MG/325MG TAB PO PRN ×2 (15:45)
[2018-11-05] MEDS ORDERED: NORCO, ANEXSIA 5/325MG TABLET (HYDROcodone/ACETAMINOPHEN) PO PRN (15:45)
[2018-11-05] MEDS ORDERED: ONDANSETRON 4MG/2ML VIAL (J2405) IV PRN (15:45)
[2018-11-05] MEDS ORDERED: BISACODYL 10 MG SUPP PR PRN (15:45)
--- NOTE | 2018-11-05 16:17 | REP ---
Portable chest, 03:51 p.m., single AP view, the the patient is upright: Comparisons are the PA and lateral chest of 09/29/[address] performed earlier today. There is a right thoracotomy tube as an interval change. The right pleural effusion has decreased. There is no pneumothorax. The right paratracheal widening and a large right hilum are again identified but decreased in size from 09/29/2018. There is an infiltrate in the left mid lung as an interval change from 09/29/2018. Subsegmental infiltrates in the left upper lower lobes were identified on the CT earlier today. Impression: Interval placement of a right thoracotomy tube. No pneumothorax. The right pleural effusion has decreased. Electronically Signed by Antione Zeng MD 11/05/2018 04:08 P
[2018-11-05 16:19] LABS: LDH LACTATE DEHYDROGENASE 207 U/L (87-241)
[2018-11-05 16:27] LABS: ABG BASE EXCESS 3.5 (-2.0-2.0); ABG O2 SATURATION 96.7 % (95.0-99.0); ABG PARTIAL PRESSURE CO2 42.1 mmHg (35.0-45.0); ABG PARTIAL PRESSURE O2 91.7 mmHg (75.0-100.0); ABG STANDARD HCO3 27.6 MEQ/L (22.0-26.0); ABG TOTAL CO2 29.3 MEQ/L (22.0-29.0); ABG pH (ARTERIAL) 7.441 UNITS (7.350-7.450)
[2018-11-05 16:32] LABS: PH BODY FLUID 7.617 UNITS (NOT ESTABLISHED); SOURCE, BODY FLUID pH PLEURAL
[2018-11-05 17:05] LABS: SOURCE, BODY FLUID PLEURAL
[2018-11-05 17:06] LABS: APPEARANCE, BODY FLUID HAZY (CLEAR); PLEURAL FL COLOR PALE YELLOW (COLORLESS)
[2018-11-05 17:08] LABS: AMYLASE, BODY FLUID 12 U/L (NOT ESTABLISHED); CHOLESTEROL, BODY FLUID < 50 MG/DL (NOT ESTABLISHED); LDH, BODY FLUID 365 U/L (NOT ESTABLISHED); SOURCE, BODY FLUID AMYLASE PLEURAL; SOURCE, BODY FLUID CHOL PLEURAL; SOURCE, BODY FLUID GLUCOSE PLEURAL; SOURCE, BODY FLUID LDH PLEURAL; SOURCE, BODY FLUID TRIG PLEURAL; TRIGLYCERIDE, BODY FLUID 22 MG/DL (NOT ESTABLISHED)
[2018-11-05 17:10] LABS: SOURCE, BODY FLUID ALBUMIN PLEURAL; SOURCE, BODY FLUID TOT PROTEIN PLEURAL; TOTAL PROTEIN, BODY FLUID 3.6 G/DL (NOT ESTABLISHED)
[2018-11-05] MEDS: KCL 20MEQ IN D5/NS 1000ML 1,000 ML IV SCH (17:32)
[2018-11-05] MEDS: KETOROLAC 30 MG/ML VIAL (J1885) IV SCH ×2 (17:32→23:38)
--- NOTE | 2018-11-05 17:53 | HPEPDOC ---
[facility] Medical History & Physical Date of Admission Nov 05, 2018 History and Physical CHIEF COMPLAINT: HISTORY OF PRESENT ILLNESS: Winston Wu is a 58 YO former smoker currently undergoing palliative radiation therapy for stage 4 [id number] advanced R lung adenocarcinoma who presented with several days coughing spells and "passing out" due to inability to catch his breath when he is coughing. He has also had a fever for about 4 days, night sweats that require his girlfriend to change the sheets each day, and excessive fatigue/lethargy. His girlfriend states that he has mostly been sleeping for the past week. He has not been eating well, but denies any n/v/d/c. The patient does report that prior to his cancer diagnosis he was having hematuria, but this stopped once he started his radiation treatment. PAST MEDICAL HISTORY: 1. Type 2 DM 2. Tobacco dependence (40 pack year history) 3. (Presumptive COPD) PAST SURGICAL HISTORY: 1. FNA lung biopsy, August 2018 SOCIAL HISTORY: Lives in [place] with his girlfriend. 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 Drinks 5-6 beers in one sitting, almost once a week FAMILY HISTORY: Unknown. Patient is adopted ALLERGIES: Please see below. REVIEW OF SYSTEMS: Negative other than what is mentioned in HPI HOME MEDICATIONS: Please see below. PHYSICAL EXAMINATION: VITAL SIGNS: See below GENERAL APPEARANCE: Laying in bed, somewhat disheveled and cachectic, no acute distress HEENT: few remaining teeth with poor dentition, moist mucus membranes, no thyromegaly, no lymphadenopathy CARDIOVASCULAR: RRR, no murmurs/rubs/gallops LUNGS: decreased breath sounds in RLL with egophony, otherwise clear air entry ABDOMEN: soft, nontender to palpation, +BS MUSCULOSKELETAL: moves all extremities well EXTREMITIES: clubbing in fingers, no edema or cyanosis NEUROLOGICAL: CN 2-12 intact without any appreciable focal deficits PSYCHIATRIC: normal mood/affect, AAOx3 LABORATORY DATA: See below. IMAGING: CXR: There is a right thoracotomy tube as an interval change. The right pleural effusion has decreased. There is no pneumothorax. The right paratracheal widening and a large right hilum are again identified but decreased in size from 09/29/2018. There is an infiltrate in the left mid lung as an interval change from 09/29/2018. Subsegmental infiltrates in the left upper lower lobes were identified on the CT earlier today. Impression: Interval placement of a right thoracotomy tube. No pneumothorax. The right pleural effusion has decreased. MICROBIOLOGY: Please see below. ASSESSMENT: This is a 58 YO with adenocarcinoma of the lung currently undergoing radiation therapy who presents with shortness of breath, weakness, lethargy, subjective fevers found to have a large pleural effusion. He has undergone therapeutic thoracentesis and chest tube placement by Dr. Qiu and remains in the PCU for close observation. PLAN: 1. Pleural effusion: most likely malignant pleural effusion 2/2 lung adenocarcinoma. Patient reported improved SOB after procedure -s/p thoracentesis and chest tube placement. Pleuro-Vac in place for output measurement. -Pleural fluid cytology and analysis pending -Thoracic Surgery following. Appreciate recommendations -Pain control with Percocet/Toradol 2. 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 Ceja and oncologic management with Dr. Adilia Taylor -Plan to consult oncology if needed. 3. Pancytopenia: likely 2/2 radiation therapy supplemented with Dexamethasone -WBC found to be 2.9 with Hgb 9.0. No indication for transfusion at this time 4. Hyponatremia: sodium found to be 133 -Likely to resolve with fluid resuscitation DVT ppx: Lovenox Dispo: pending clinical improvement Vital Signs Vital Signs Date Time Temp Pulse Resp B/P (MAP) Pulse Ox O2 Delivery O2 Flow Rate FiO2 11/05/18 14:30 11/05/18 13:40 97.0 105 18 97 Room Air Laboratory Data Labs 24H Laboratory Tests 2 11/05/18 14:41: Immature Granulocyte % (Auto) 0.3, White Blood Count 2.9L, Red Blood Count 3.28L, Hemoglobin 9.0L, Hematocrit 28.6L, Mean Corpuscular Volume 87.2, Mean Corpuscular Hemoglobin 27.4, Mean Corpuscular Hemoglobin Concent 31.5L, Red Cell Distribution Width 17.2H, Platelet Count 111L, Neutrophils (%) (Auto) 78.4H, Lymphocytes (%) (Auto) 14.7L, Monocytes (%) (Auto) 6.3H, Eosinophils (%) (Auto) 0.0, Basophils (%) (Auto) 0.3, Neutrophils # (Auto) 2.2, Lymphocytes # (Auto) 0.4L, Monocytes # (Auto) 0.2, Eosinophils # (Auto) 0.0, Basophils # (Auto) 0.0, Nucleated Red Blood Cells % (auto) 0.0, Prothrombin Time 17.6H, Prothromb Time International Ratio 1.42, Activated Partial Thromboplast Time 33.5, Anion Gap 6L, Glomerular Filtration Rate > 60.0, Calcium Level 7.7L, Aspartate Amino Transf (AST/SGOT) 33, Alanine Aminotransferase (ALT/SGPT) 43, Alkaline Phosphatase 91, Total Bilirubin 0.3, Direct Bilirubin 0.2, Total Creatine Kinase 49, Creatine Kinase MB 1.0, Creatine Kinase MB Relative Index 2.45, Troponin I < 0.02, Total Protein 5.6L, Albumin 1.4L, Albumin/Globulin Ratio 0.33L CBC/BMP Laboratory Tests 11/05/18 14:41 Red Blood Count 3.28 L, Mean Corpuscular Volume 87.2, Mean Corpuscular Hemoglobin 27.4, Mean Corpuscular Hemoglobin Concent 31.5 L, Red Cell Distribution Width 17.2 H, Neutrophils (%) (Auto) 78.4 H, Lymphocytes (%) (Auto) 14.7 L, Monocytes (%) (Auto) 6.3 H, Eosinophils (%) (Auto) 0.0, Basophils (%) (Auto) 0.3, Neutrophils # (Auto) 2.2, Lymphocytes # (Auto) 0.4 L, Monocytes # (Auto) 0.2, Eosinophils # (Auto) 0.0, Basophils # (Auto) 0.0 Microbiology Microbiology 11/05/18 Blood Culture, Received Pending 11/05/18 Blood Culture, Received Pending Home Medications Scheduled Albuterol Sulfate (Proair Respiclick) 108 Mcg/Act Aer, 108 MCG IN Q4-6HP Dexamethasone (Dexamethasone) 4 Mg Tablet, 4 MG PO BID Omeprazole (Omeprazole) 20 Mg Cap, 1 CAP PO DAILY Allergies Coded Allergies: No Known Allergies (Unverified , 12/17/16) GME ATTESTATION GME ATTESTATION My faculty preceptor for this patient encounter was physically present during the encounter and was fully available. All aspects of the patient interview, examination, medical decision making process, and medical care plan development were reviewed and approved by the faculty preceptor. The faculty preceptor is aware and concurs with the plan as stated in the body of this note and will attest to such by his/her cosignature. MARY DAVIS MD Nov 05, 2018 16:16
[2018-11-05] MEDS: LEVALBUTEROL 1.25 MG/0.5 ML CONCENTRATE NEB NEB SCH (19:30)
--- NOTE | 2018-11-05 19:40 | ECGEPIP ---
Stationary ECG Study [facility] - ED Test Date: 2018-11-05 Pat Name: BUZZ MILLER Department: Room: [place] [address] Gender: M Room Service Supervisor: RHONA : 1960 Requested By: SEN Edwards Order Number: [id number] Reading MD: Lisbet Benavidez Measurements Intervals [place] Rate: 94 P: 74 ND: 181 QRS: 75 QRSD: 95 T: 77 QT: 371 QTc: 465 Interpretive Statements SINUS RHYTHM POSSIBLE ANTERIOR MYOCARDIAL INFARCTION, OF INDETERMINATE AGE BASELINE ARTIFACT MAY AFFECT READING LOW QRS VOLTAGE LIMG LEADS CW 08/02/[address] T WAVE CHANGES Electronically Signed On 11-05-2018 19:39:33 EDT by Lisbet Benavidez
[2018-11-05] MEDS: DOCUSATE SODIUM 100 MG CAP PO SCH (20:32)
[2018-11-06] MEDS: LEVALBUTEROL 1.25 MG/0.5 ML CONCENTRATE NEB NEB SCH ×4 (01:54→18:18)
[2018-11-06 04:00] VITALS: BP 90/57
[2018-11-06] MEDS: KETOROLAC 30 MG/ML VIAL (J1885) IV SCH ×4 (05:46→23:17)
[2018-11-06 05:50] LABS: HEMATOCRIT 27.1 % (42.0-52.0); HEMOGLOBIN 8.4 g/dl (13.5-17.5); MEAN CORPUSCULAR HEMOGLOBIN 27.5 pg (27.0-33.0); MEAN CORPUSCULAR VOLUME 88.9 fl (80.0-96.0); PLATELET COUNT, AUTOMATED 106 10^3/uL (150-450); RED BLOOD COUNT 3.05 10^6/uL (4.30-6.10); WHITE BLOOD COUNT 2.1 10^3/uL (4.0-10.0)
[2018-11-06 06:18] LABS: BLOOD UREA NITROGEN 13 MG/DL (7-18); CALCIUM LEVEL 7.9 MG/DL (8.5-10.1); CARBON DIOXIDE LEVEL 27 MEQ/L (21-32); CHLORIDE LEVEL 107 MEQ/L (98-107); CREATININE FOR GFR 0.55 MG/DL (0.70-1.30); GLOMERULAR FILTRATION RATE > 60.0 (>56); GLUCOSE, FASTING 215 MG/DL (70-100); POTASSIUM SERUM 3.4 MEQ/L (3.5-5.1); SODIUM LEVEL 141 MEQ/L (136-145)
[2018-11-06] MEDS: KCL 20MEQ IN D5/NS 1000ML 1,000 ML IV SCH (06:29)
[2018-11-06 06:33] LABS: ABG BASE EXCESS 4.1 (-2.0-2.0); ABG HCO3 28.7 MEQ/L (22.0-26.0); ABG O2 SATURATION 98.7 % (95.0-99.0); ABG PARTIAL PRESSURE CO2 43.5 mmHg (35.0-45.0); ABG PARTIAL PRESSURE O2 127.6 mmHg (75.0-100.0); ABG STANDARD HCO3 28.1 MEQ/L (22.0-26.0); ABG pH (ARTERIAL) 7.437 UNITS (7.350-7.450)
[2018-11-06 06:56] LABS: ATYPICAL LYMPH 1 % (0-5); LYMPHOCYTES 15 % (16-52); NEUTROPHILS 82 % (35-75); PLATELET ESTIMATE DECREASED (NORMAL)
[2018-11-06 06:57] LABS: ANISOCYTOSIS 1+
[2018-11-06 07:38] LABS: MAGNESIUM LEVEL 1.9 MG/DL (1.8-2.4)
[2018-11-06 08:00] VITALS: BP 96/63
[2018-11-06] MEDS ORDERED: ENOXAPARIN 40 MG/0.4 ML SYRINGE (J1650) SC SCH (09:00)
[2018-11-06] MEDS: MOM 30ML SUSPENSION UDC PO SCH (10:10)
[2018-11-06] MEDS: DOCUSATE SODIUM 100 MG CAP PO SCH ×2 (10:10→20:42)
[2018-11-06] MEDS: PANTOPRAZOLE 40MG TAB (PROTONIX) PO SCH (10:12)
--- NOTE | 2018-11-06 11:40 | CR ---
DATE OF CONSULTATION: 11/05/2018 Mr. Wu is seen at the request of Dr. Taylor and the hospitalist service for shortness of breath and a pleural effusion. Mr. Wu is a 58-year-old black male who had at least a clinical stage III, if not stage IV high grade adenocarcinoma who was first diagnosed in August of this year with large central mass and SVC compression. He underwent immediate radiation therapy. His tumor responded well to the radiation, however in the last few days, he has become more short of breath and more lethargic with increased fatigue and lack of appetite. He has had coughing spells which caused him to fall down and pass out for which he went to the emergency room and was then discharged. He returns today with increasing shortness of breath to the cancer center and was then sent over to the emergency room. He has felt feverish for the last few days with night sweats. He has extreme fatigue. He has been in bed most of the week and sleeping. There has been no nausea or vomiting and no real dysphagia. He has a productive cough of white sputum. He does not complain of chest pain. Shortness of breath is such that he has trouble walking around his house from his bed to his bathroom. It has been progressive over the past week. PAST MEDICAL HISTORY: Significant for: Diabetes. Tobacco abuse. Chronic obstructive pulmonary disease (COPD). PAST SURGICAL HISTORY: Biopsy of the right supraclavicular node positive for high grade adenocarcinoma. MEDICATIONS AT HOME: - albuterol inhaler 108 mcg every 4 hours - dexamethasone 4 mg twice daily - omeprazole 20 mg daily TRAVEL HISTORY: [place]. EXPOSURES: He has one cat at home. No birds or dogs. No exposure to tuberculosis. 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 HABITS: Smoked 1 to 1-1/2 packs per day for 40 years. He stopped about a month ago. No elicit drugs. Social alcohol. FAMILY HISTORY: Patient is adopted, unknown. REVIEW OF SYSTEMS: Constitutional: See history of present illness. Has had a 20 pound weight loss in the past 2 months particularly after radiation therapy where his esophagus wilkerson with swallowing. Food, however, does not get stuck. Eyes: Without amaurosis fugax or diplopia. No prior jaundice. Nose without epistaxis. Mouth has a few teeth left. Respiratory: See history of present illness. Cardiac: See history of present illness. No history of prior myocardial infarctions, intermittent claudication or leg edema. GI: Without nausea, vomiting, diarrhea, constipation, melena or hematochezia. : Reports hematuria in and around his cancer diagnosis which resolved after radiation therapy. No dysuria. Neurologic: Without paresthesias, paralysis or seizures. Endocrine: Reported diabetes although not being treated. No thyroid disease. Hematologic: Without prolonged bleeding times. PHYSICAL EXAMINATION: Underweight black male in mild to moderate respiratory distress. Vital signs: Temperature 96.7 with pulse of 80 in a sinus rhythm, respiratory rate of 18 without the use of accessory muscles who is 98% saturated on 2 liters nasal cannula and has blood pressure of 93/69. Eyes: Pupils equal, round and reactive to light. Extraocular movement intact. Sclera anicteric. Nose without deformity. Mouth shows his mucous membranes to be pink and moist. Lips and commissures without lesions. There is no thrush. He only has a few teeth left in the uppers and lowers. Neck is supple. There is no jugular venous distention. No subcutaneous emphysema. Trachea is midline. There is no thyromegaly or lymphadenopathy. He has 2+ carotid upstrokes without bruits. Head is normocephalic. Lungs show decreased breath sounds on the right side. Left side shows scattered rhonchi. Percussion note is full to the diaphragm on the left and dull at the base on the right. Cardiac exam is without murmurs, clicks, gallops or rubs. I cannot feel his PMI. S1 and S2 are normal. Abdomen is soft, nontender, bowel sounds are positive. There is no hepatomegaly. No CVA tenderness. Extremities show no pretibial edema. No calf tenderness. No differential swelling of the upper extremities. Peripheral pulses are 2+ on dorsalis pedis bilaterally. Skin is warm, dry and perfused without cyanosis or mottling including that of the nail beds and knees. Neuro shows II through XII intact with gross motor and gross sensation intact. Gait is also intact. Psychiatric shows him to be awake and alert, oriented times three with appropriate mood and affect and conversational. His white count today is 2.9 with hemoglobin and hematocrit of 9.0 and 28.6 and a platelet count of 111. Differential shows 78% neutrophils, 14% lymphocytes, 6% monocytes. There are no immature forms. No toxic granulations. Electrolytes show marginally low sodium at 133 with BUN and creatinine of 8 and 0.45, glucose of 210. Hemoglobin A1c is 7.7. Calcium is 1.9 and ASI and ALT are normal. Troponin is less than 0.02. Blood gases show pH of 7.44, pCO2 of 42, pO2 of 91 with base excess of 3.5. PT/INR are 17.5 and 1.42 with a PTT of 33. His chest CT done under angiographic protocol confirms a pleural effusion. He still has mediastinal mass and/or lymphadenopathy. It is much improved, however, over his CT scan of 09/15. He had severe narrowing of the upper superior vena cava and today the vena cava fills well. He has some ground glass opacities in both lobes with a nodule or lesion in the left upper lobe. The adrenals have a normal configuration. I do not see liver lesions. There is a renal cyst on the left. IMPRESSION: 1. Stage IV adenocarcinoma by definition of a supraclavicular node. 2. New pleural effusion with increasing shortness of breath, probably malignant. 3. Diabetes. 4. Chronic obstructive pulmonary disease (COPD). 5. Tobacco abuse. 6. Small pericardial effusion. PLAN AND DISCUSSION: I will place a chest tube in the posterior axillary line. He is significantly short of breath and I do not know whether his shortness of breath is secondary to the moderate pleural effusion or intrinsic parenchymal damage from radiation. The only way to find out is to drain the fluid. We will send the fluid for the requisite studies of cytologies, hematology, chemistries and bacteriology. I do not think this is an infective process. There is a very small pericardial effusion and I will obtain an echocardiogram. He certainly shows no clinical signs of tamponade with very sharp crisp heart sounds and no jugular venous distention.
--- NOTE | 2018-11-06 11:44 | IPNPDOC ---
Date Seen The patient was seen on 11/06/18. Progress Note SUBJECTIVE: No changes reported overnight. Patient has no complaints this morning. OBJECTIVE PHYSICAL EXAMINATION: VITAL SIGNS: See below GENERAL APPEARANCE: Laying in bed, somewhat disheveled and cachectic, no acute distress HEENT: few remaining teeth with poor dentition, moist mucus membranes, no thyromegaly, no lymphadenopathy CARDIOVASCULAR: RRR, no murmurs/rubs/gallops LUNGS: decreased breath sounds in RLL with egophony, otherwise clear air entry ABDOMEN: soft, nontender to palpation, +BS MUSCULOSKELETAL: moves all extremities well EXTREMITIES: clubbing in fingers, no edema or cyanosis NEUROLOGICAL: CN 2-12 intact without any appreciable focal deficits PSYCHIATRIC: normal mood/affect, AAOx3 LABORATORY DATA: See below. IMAGING: CXR: pending read MICROBIOLOGY: Please see below. ASSESSMENT: This is a 58 YO with adenocarcinoma of the lung currently undergoing radiation therapy who presents with shortness of breath, weakness, lethargy, subjective fevers found to have a large pleural effusion. He has undergone therapeutic thoracentesis and chest tube placement by Dr. Qiu and remains in the PCU for close observation. PLAN: 1. Pleural effusion: most likely malignant pleural effusion 2/2 lung adenocarcinoma. Patient reported improved SOB after procedure -s/p thoracentesis and chest tube placement. Pleuro-Vac in place for output measurement. 60cc drainage noted overnight -Pleural fluid cytology and analysis pending -Thoracic Surgery following. Appreciate recommendations -Pain control with Percocet/Toradol 2. 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 Ceja and oncologic management with Dr. Adilia Taylor -Plan to consult oncology if needed. 3. Pancytopenia: likely 2/2 radiation therapy supplemented with Dexamethasone -WBC 2.1 with Hgb 8.4. No indication for transfusion at this time 4. Hyponatremia: sodium today 141 -Stable DVT ppx: Lovenox Dispo: pending clinical improvement VS, I&O, 24H, Fishbone Vital Signs/I&O Vital Signs Date Time Temp Pulse Resp B/P (MAP) Pulse Ox O2 Delivery O2 Flow Rate FiO2 11/06/18 08:00 97.9 108 20 96/63 (74) 96 11/05/18 16:32 2.0 11/05/18 13:40 Room Air I&O- Last 24 Hours up to 6 AM 11/06/18 06:00 Intake Total 2300 ml Output Total 3006 ml Balance -706 ml Laboratory Data 24H LABS Laboratory Tests 2 11/05/18 14:41: Immature Granulocyte % (Auto) 0.3, White Blood Count 2.9L, Red Blood Count 3.28L, Hemoglobin 9.0L, Hematocrit 28.6L, Mean Corpuscular Volume 87.2, Mean Corpuscular Hemoglobin 27.4, Mean Corpuscular Hemoglobin Concent 31.5L, Red Cell Distribution Width 17.2H, Platelet Count 111L, Neutrophils (%) (Auto) 78.4H, Lymphocytes (%) (Auto) 14.7L, Monocytes (%) (Auto) 6.3H, Eosinophils (%) (Auto) 0.0, Basophils (%) (Auto) 0.3, Neutrophils # (Auto) 2.2, Lymphocytes # (Auto) 0.4L, Monocytes # (Auto) 0.2, Eosinophils # (Auto) 0.0, Basophils # (Auto) 0.0, Nucleated Red Blood Cells % (auto) 0.0, Prothrombin Time 17.6H, Prothromb Time International Ratio 1.42, Activated Partial Thromboplast Time 33.5, Anion Gap 6L, Glomerular Filtration Rate > 60.0, Calcium Level 7.7L, Aspartate Amino Transf (AST/SGOT) 33, Alanine Aminotransferase (ALT/SGPT) 43, Lactate Dehydro genase 207, Alkaline Phosphatase 91, Total Bilirubin 0.3, Direct Bilirubin 0.2, Total Creatine Kinase 49, Creatine Kinase MB 1.0, Creatine Kinase MB Relative Index 2.45, Troponin I < 0.02, Total Protein 5.6L, Albumin 1.4L, Albumin/Globulin Ratio 0.33L 11/05/18 16:06: Body Fluid pH 7.617, Body Fluid pH Source PLEURAL, Body Fluid WBC (Auto) 82H, Body Fluid RBC (Auto) 2, Body Fluid Mononuclear Cells % Auto 76.8H, Fluid Polymorphonuclear Cell % Auto 23.2H, Body Fluid Glucose Source PLEURAL, Body Fluid Glucose 201, Body Fluid Protein Source PLEURAL, Body Fluid Total Protein 3.6, Body Fluid Albumin Source PLEURAL, Body Fluid Albumin 1.2, Body Fluid LDH Source PLEURAL, Body Fluid Lactate Dehydrogenase 365, Body Fluid Amylase Source PLEURAL, Body Fluid Amylase 12, Body Fluid Cholesterol < 50, Body Fluid Cholesterol Source PLEURAL, Body Fluid Triglyceride Source PLEURAL, Body Fluid Triglycerides 22, Pleural Fluid Source PLEURAL, Pleural Fluid Color PALE YELLOW, Pleural Fluid Appearance HAZY 11/05/18 16:17: Blood Gas Bicarbonate Standard 27.6H, Arterial Blood pH 7.441, Arterial Blood Partial Pressure CO2 42.1, Arterial Blood Partial Pressure O2 91.7, Arterial Blood Total CO2 29.3H, Arterial Blood HCO3 28.0H, Arterial Blood Base Excess 3.5H, Arterial Blood Oxygen Saturation 96.7 11/06/18 05:22: White Blood Count 2.1L, Red Blood Count 3.05L, Hemoglobin 8.4L, Hematocrit 27.1L, Mean Corpuscular Volume 88.9, Mean Corpuscular Hemoglobin 27.5, Mean Corpuscular Hemoglobin Concent 31.0L, Red Cell Distribution Width 17.2H, Platelet Count 106L, Lymphocytes # (Auto) , Nucleated Red Blood Cells % (auto) 0.0, Anion Gap 7L, Glomerular Filtration Rate > 60.0, Calcium Level 7.9L, Neutrophils 82H, Band Neutrophils 2, Lymphocytes (Manual) 15L, Atypical Lymphocytes 1, Platelet Estimate DECREASED, Anisocytosis 1+, Blood Urea Nitrogen 13#, Creatinine 0.55L, Sodium Level 141#, Potassium Level 3.4L, Chloride Level 107, Carbon Dioxide Level 27, Magnesium Level 1.9 11/06/18 06:26: Blood Gas Bicarbonate Standard 28.1H, Arterial Blood pH 7.437, Arterial Blood Partial Pressure CO2 43.5, Arterial Blood Partial Pressure O2 127.6H, Arterial Blood Total CO2 30.0H, Arterial Blood HCO3 28.7H, Arterial Blood Base Excess 4. 1H, Arterial Blood Oxygen Saturation 98.7 CBC/BMP Laboratory Tests 11/05/18 14:41 Red Blood Count 3.28 L, Mean Corpuscular Volume 87.2, Mean Corpuscular Hemoglobin 27.4, Mean Corpuscular Hemoglobin Concent 31.5 L, Red Cell Distribution Width 17.2 H, Neutrophils (%) (Auto) 78.4 H, Lymphocytes (%) (Auto) 14.7 L, Monocytes (%) (Auto) 6.3 H, Eosinophils (%) (Auto) 0.0, Basophils (%) (Auto) 0.3, Neutrophils # (Auto) 2.2, Lymphocytes # (Auto) 0.4 L, Monocytes # (Auto) 0.2, Eosinophils # (Auto) 0.0, Basophils # (Auto) 0.0 11/06/18 05:22 Red Blood Count 3.05 L, Mean Corpuscular Volume 88.9, Mean Corpuscular Hemoglobin 27.5, Mean Corpuscular Hemoglobin Concent 31.0 L, Red Cell Distribution Width 17.2 H, Lymphocytes # (Auto) , Calcium Level 7.9 L Microbiology Microbiology 11/05/18 Blood Culture, Received Pending 11/05/18 Blood Culture, Received Pending 11/05/18 Acid Fast Stain, Received Pending 11/05/18 Mycobacterial Culture, Received Pending 11/05/18 Fungal Smear, Received Pending 11/05/18 Fungal Culture, Received Pending 11/05/18 Gram Stain - Final, Resulted 11/05/18 Anaerobic Culture, Resulted Pending 11/05/18 Body Fluid Culture, Received Pending GME ATTESTATION GME ATTESTATION My faculty preceptor for this patient encounter was physically present during the encounter and was fully available. All aspects of the patient interview, examination, medical decision making process, and medical care plan development were reviewed and approved by the faculty preceptor. The faculty preceptor is aware and concurs with the plan as stated in the body of this note and will attest to such by his/her cosignature. MARY DAVIS MD Nov 06, 2018 11:44
--- NOTE | 2018-11-06 11:44 | IPN ---
DATE: 11/06/2018 What a difference 24 hours makes. Mr. Wu is breathing so much better. He is awake and alert and wants to go for a walk. His vital signs show a maximum temperature (T max) of 97.0 with a heart rate that ranges between 95 and 80 and is sinus rhythm, respiratory rate of 18 to 20 without the use of accessory muscles, who is 98% saturated on two liters nasal cannula and his blood pressures ranging between 95/62 to 90/57. His intake and output over the past 24 hours has been recorded as 1700 in and 2547 out for a negativity of 845 mL. In the last 11 hours, he has put out 59 mL from the chest tube, and there is no air leak. Weight today is 65.5 kg compared to 69.09 kg yesterday. On physical examination, he has coarse rhonchi in the right side, but the breath sounds are equal on either side. Percussion notes are full to the diaphragm. Cardiac exam does not show murmurs, clicks, gallops or rubs. His S1, S2 are normal. I cannot feel his point of maximum impulse (PMI). Heart sounds are crisp and well heard. Abdomen is soft and nontender. Bowel sounds are positive. There is no hepatomegaly. No costovertebral angle (CVA) tenderness. Extremities show no pretibial edema. No calf tenderness. No differential swelling of the upper extremities. Skin is warm, dry and perfused without cyanosis or mottling, including that of the nail beds and the knees. Neck is supple. There is no jugular venous distention, no subcutaneous emphysema. Trachea is midline. Mouth shows his mucous membranes to be pink and moist. Lips and commissures without lesions. There is no thrush. Eyes show his pupils to be equal and reactive. Extraocular motions intact. Sclerae anicteric. Neurologic shows II-XII intact along with gross motor and gross sensation intact. Gait is not tested. Psychiatric shows him to be awake and alert, oriented times three with appropriate mood and affect and conversational. His white count today is 2.1 with a hemoglobin and hematocrit of 8.4 and 27.1 respectively with a platelet count of 106 and stable. Differential shows 83% neutrophils, 2% bands, 15% lymphocytes. There are no other immature forms and no toxic granulations. Electrolytes are normal except for marginally low potassium at 3.4. BUN and creatinine are 13 and 0.55, glucose of 215 with a calcium of 1.9. His chest x-ray today shows the lung fully expanded to the chest wall. Both costophrenic angles are sharp. He has a fluffy infiltrate in the left mid lung field. It is unchanged from his post chest tube portable chest x-ray and corresponds to the process on the CT angio yesterday. It probably represents the lung primary. IMPRESSION: 1. Metastatic lung adenocarcinoma. 2. Pleural effusion. 3. Diabetes. 4. Tobacco abuse. 5. Chronic obstructive pulmonary disease (COPD). PLAN AND DISCUSSION: It should be noted that his fluid analysis shows a pH of 7.6 with an LDH of 256 with a corresponding serum LDH of 207, which makes this an exudative process. He has only had 82 white cells of which 76% are mononuclear and probably lymphocytes. I suspect this is going to represent a malignant pleural effusion, although the pathology is pending. His total protein in the fluid is 3.6 with a corresponding serum total protein of 5.6, again lending support this is exudative. I will take his chest tube off suction today. If his chest tube drains as little tomorrow as it is today, I will remove it. We will have to await pathology. This may be recurrent, and he may need a PleurX catheter eventually.
[2018-11-06 12:03] VITALS: BP 118/82
[2018-11-06] MEDS: ACETAMINOPHEN TAB 650MG DOSE (2X325MG) PO PRN ×2 (12:17→23:16)
[2018-11-06] MEDS: PIPERACILLIN/TAZOBACTAM SOD 4.5 GM in D5W MINI-BAG PLUS 50 ML IV SCH ×2 (14:52→20:46)
[2018-11-06 15:00] LABS: INFLUENZA A AMPLIFICATION NEGATIVE (NEGATIVE); INFLUENZA B AMPLIFICATION NEGATIVE (NEGATIVE)
[2018-11-06 16:00] VITALS: BP 92/64
[2018-11-06] MEDS: VANCOMYCIN HCL 1,000 MG, VIAL MATE ADAPTER 1 EACH in D5W 250 ML IV SCH (16:07)
[2018-11-06] MEDS ORDERED: VANCOMYCIN HCL 500 MG in D5W MINI-BAG PLUS 100 ML IV ONE (17:00)
--- NOTE | 2018-11-06 18:24 | ECGEPIP ---
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
[2018-11-06 20:00] VITALS: BP 83/57
[2018-11-06 23:10] VITALS: BP 91/66
[2018-11-07] VITALS (7 sets, daily range): BP systolic 78–106; BP diastolic 50–71
[2018-11-07] MEDS: LEVALBUTEROL 1.25 MG/0.5 ML CONCENTRATE NEB NEB SCH ×4 (00:44→20:36)
[2018-11-07] MEDS: KCL 20MEQ IN D5/NS 1000ML 1,000 ML IV SCH ×4 (01:04→23:38)
[2018-11-07] MEDS: PIPERACILLIN/TAZOBACTAM SOD 4.5 GM in D5W MINI-BAG PLUS 50 ML IV SCH ×4 (03:38→20:19)
[2018-11-07] MEDS: KETOROLAC 30 MG/ML VIAL (J1885) IV SCH ×4 (04:46→20:19)
[2018-11-07 05:59] LABS: EOS % 1.4 % (0.0-3.0); HEMATOCRIT 27.1 % (42.0-52.0); LYMPH # 0.3 10^3/uL (1.5-4.5); MEAN CORPUSCULAR HEMOGLOBIN 26.5 pg (27.0-33.0); MEAN CORPUSCULAR HGB CONC 29.5 g/dl (32.0-36.5); MEAN CORPUSCULAR VOLUME 89.7 fl (80.0-96.0); MONO # 0.1 10^3/uL (0.0-0.8); MONO % 5.7 % (0.0-5.0); NEUTROPHILS # 1.7 10^3/uL (1.8-7.7); NEUTROPHILS % 78.6 % (36.0-66.0); PLATELET COUNT, AUTOMATED 115 10^3/uL (150-450); RED BLOOD COUNT 3.02 10^6/uL (4.30-6.10); WHITE BLOOD COUNT 2.1 10^3/uL (4.0-10.0)
[2018-11-07 06:21] LABS: BLOOD UREA NITROGEN 9 MG/DL (7-18); CALCIUM LEVEL 7.8 MG/DL (8.5-10.1); CARBON DIOXIDE LEVEL 26 MEQ/L (21-32); CHLORIDE LEVEL 107 MEQ/L (98-107); CREATININE FOR GFR 0.44 MG/DL (0.70-1.30); GLOMERULAR FILTRATION RATE > 60.0 (>56); GLUCOSE, FASTING 168 MG/DL (70-100); POTASSIUM SERUM 3.4 MEQ/L (3.5-5.1); SODIUM LEVEL 140 MEQ/L (136-145)
[2018-11-07 07:30] LABS: LYMPH % 13.3 % (24.0-44.0)
--- NOTE | 2018-11-07 08:02 | IPNPDOC ---
Text Note Date of Service The patient was seen on 11/07/18. NOTE SUBJECTIVE: Patient seen and examined at bedside. No acute overnight events r eported. Patient is in good spirits this morning. He denies chest pain, shortness of breath, dizziness, headaches. He did note chills and shakes overnight, and was spiking fevers, and tachycardic. OBJECTIVE PHYSICAL EXAMINATION: VITAL SIGNS: See below GENERAL APPEARANCE: sitting at edge of bed, disheveled, cachectic, NAD HEENT: few remaining teeth with poor dentition, MMM, no thyromegaly CARDIOVASCULAR: +S1S2 LUNGS: crackles LLL ABDOMEN: soft, nontender to palpation, +BS MUSCULOSKELETAL: moves all extremities well EXTREMITIES: clubbing in fingers, no edema or cyanosis NEUROLOGICAL: CN 2-12 intact without any appreciable focal deficits PSYCHIATRIC: normal mood/affect, AAOx3 LABORATORY DATA: See below. MICROBIOLOGY: Please see below. ASSESSMENT: This is a 58 YO with adenocarcinoma of the lung currently undergoing radiation therapy who presents with shortness of breath, weakness, lethargy, subjective fevers found to have a large right pleural effusion s/p chest tube placement. PLAN: #Pleural effusion - concern for likely malignant pleural effusion 2/2 lung adenocarcinoma -s/p chest tube placement with improvement of SOB -Pleural fluid cytology and analysis pending -Thoracic Surgery following. Appreciate recommendations -Pain control with Percocet/Toradol #fevers/pancytopenia - continuing broad spectrum coverage with vanc/zosyn - still spiking fevers - will continue to monitor - if fevers continue will likely transfer - no ID services available presently - can consider anti-fungal - influenza negative - d/w lab - considering transfusion PRBC, Hgb 8.0 today - d/c lovenox, check FOB #lactic acidosis - receiving IV fluids and broad spectrum anti-microbial - continue to trend #hypotension - patient states his pressures typically run low - asymptomatic - continue with IV fluids - consider central line as precautionary measure # 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 Ceja and oncologic management with Dr. Adilia Taylor -Plan to consult oncology if needed. - scheduled for port placement 11/11/18 for chemo #Hyponatremia -Stable #DVT ppx: will transition to mechanical given anemia/pancytopenia Dispo: Patient care will be transitioned today to [facility]. VS,Fishbone, I+O VS, Fishbone, I+O Laboratory Tests 11/07/18 04:59 Red Blood Count 3.02 L, Mean Corpuscular Volume 89.7, Mean Corpuscular Hemoglobin 26.5 L, Mean Corpuscular Hemoglobin Concent 29.5 L, Red Cell Distribution Width 17.8 H, Neutrophils (%) (Auto) 78.6 H, Lymphocytes (%) (Auto) 13.3 L, Monocytes (%) (Auto) 5.7 H, Eosinophils (%) (Auto) 1.4, Basophils (%) (Auto) 0.0, Neutrophils # (Auto) 1.7 L, Lymphocytes # (Auto) 0.3 L, Monocytes # (Auto) 0.1, Eosinophils # (Auto) 0.0, Basophils # (Auto) 0.0, Calcium Level 7.8 L Vital Signs Date Time Temp Pulse Resp B/P (MAP) Pulse Ox O2 Delivery O2 Flow Rate FiO2 11/07/18 04:00 97.7 109 18 86/54 (65) 95 11/05/18 16:32 2.0 11/05/18 13:40 Room Air I&O- Last 24 Hours up to 6 AM 11/07/18 06:00 Intake Total 5415 ml Output Total 1971 ml Balance 3444 ml DIANA HARRISON MD Nov 07, 2018 08:02
--- NOTE | 2018-11-07 08:14 | RO ---
DATE OF PROCEDURE: 11/05/2018 PREPROCEDURE DIAGNOSIS: Right pleural effusion. POSTPROCEDURE DIAGNOSIS: Right pleural effusion. PROCEDURE: Insertion of a right lateral chest tube. SURGEON: Dr. Cali Qiu [employer]CH[employer]IC SUPERVISOR: ANESTHESIA: DESCRIPTION OF PROCEDURE: Under satisfactory moderate sedation, the patient was prepped and draped in the usual sterile fashion. Skin, subcutaneous tissue, and pleura was infiltrated with 1% lidocaine in the approximate 6th intercostal space. Incision was made in the posterior axillary line and a tunnel was created in the chest without difficulty. A #24 chest tube was placed. The patient drained 1400 mL of serous fluid. Chest tube was secured to the chest wall with a #2 Tevdek suture. The patient tolerated the procedure well and a chest x-ray is pending.
[2018-11-07] MEDS: DOCUSATE SODIUM 100 MG CAP PO SCH ×2 (08:17→20:18)
[2018-11-07] MEDS: VANCOMYCIN HCL 1,000 MG, VIAL MATE ADAPTER 1 EACH in D5W 250 ML IV SCH ×4 (08:17)
[2018-11-07] MEDS: MOM 30ML SUSPENSION UDC PO SCH (08:18)
[2018-11-07] MEDS: PANTOPRAZOLE 40MG TAB (PROTONIX) PO SCH (08:18)
--- NOTE | 2018-11-07 09:08 | REP ---
PA and lateral chest: Comparison is 11/05/2018. The right thoracotomy tube is unchanged. The right pleural effusion is unchanged. There is subcutaneous emphysema right lateral chest wall, slightly increased. The left lung infiltrate is unchanged. The widening of the right apparent tracheal stripe enlargement of the right hilus are unchanged. Electronically Signed by Antione Zeng MD 11/06/2018 08:03 A
--- NOTE | 2018-11-07 10:01 | REP ---
REASON: Followup pleural effusion. COMPARISON: Multiple, latest yesterday. The technique utilized in obtaining the radiograph has magnified the cardiac silhouette and accentuated the interstitial markings. Right sided thoracotomy tube is unchanged. Lung field opacities have not changed significantly when the technical differences between the examinations are taken into consideration. No new abnormal opacities have developed. There is no change in the cardiomediastinal silhouette or the osseous structures. IMPRESSION: No significant change when compared with the prior exam when the technical factors are taken into consideration. Electronically Signed by Livan Spencer DO 11/07/2018 01:49 P
[2018-11-07] MEDS ORDERED: NS 500 ML IV ONE ×3 (12:30→20:00)
[2018-11-07 15:28] LABS: VANCOMYCIN LEVEL TROUGH 9.8 UG/ML (10.0-20.0)
[2018-11-07] MEDS: ACETAMINOPHEN TAB 650MG DOSE (2X325MG) PO PRN (16:33)
[2018-11-07] MEDS: VANCOMYCIN HCL 500 MG in D5W MINI-BAG PLUS 100 ML IV SCH (17:00)
[2018-11-07] MEDS: VANCOMYCIN HCL 750 MG, VIAL MATE ADAPTER 1 EACH in D5W 250 ML IV SCH ×2 (17:35→23:38)
[2018-11-07 19:25] LABS: BLOOD UREA NITROGEN 9 MG/DL (7-18); CALCIUM LEVEL 7.2 MG/DL (8.5-10.1); CARBON DIOXIDE LEVEL 28 MEQ/L (21-32); CHLORIDE LEVEL 107 MEQ/L (98-107); CREATININE FOR GFR 0.42 MG/DL (0.70-1.30); GLOMERULAR FILTRATION RATE > 60.0 (>56); GLUCOSE, FASTING 136 MG/DL (70-100); MAGNESIUM LEVEL 1.2 MG/DL (1.8-2.4); POTASSIUM SERUM 3.2 MEQ/L (3.5-5.1); SODIUM LEVEL 140 MEQ/L (136-145)
[2018-11-07] MEDS ORDERED: POTASSIUM CHLORIDE 10 MEQ SR TABLET PO ONE (20:00)
[2018-11-07] MEDS: MAGNESIUM OXIDE 400 MG TAB (MAG-OX) PO SCH (20:19)
[2018-11-08] VITALS (11 sets, daily range): BP systolic 88–122; BP diastolic 52–78
[2018-11-08] MEDS: VANCOMYCIN HCL 500 MG in D5W MINI-BAG PLUS 100 ML IV SCH ×3 (01:00→17:33)
[2018-11-08] MEDS: LEVALBUTEROL 1.25 MG/0.5 ML CONCENTRATE NEB NEB SCH ×4 (01:02→20:19)
[2018-11-08] MEDS: PIPERACILLIN/TAZOBACTAM SOD 4.5 GM in D5W MINI-BAG PLUS 50 ML IV SCH ×4 (03:00→21:07)
[2018-11-08 04:15] LABS: HEMATOCRIT 30.8 % (42.0-52.0); HEMOGLOBIN 9.1 g/dl (13.5-17.5); MEAN CORPUSCULAR HEMOGLOBIN 27.4 pg (27.0-33.0); MEAN CORPUSCULAR HGB CONC 29.5 g/dl (32.0-36.5); MEAN CORPUSCULAR VOLUME 92.8 fl (80.0-96.0); PLATELET COUNT, AUTOMATED 114 10^3/uL (150-450); RED BLOOD COUNT 3.32 10^6/uL (4.30-6.10); WHITE BLOOD COUNT 2.9 10^3/uL (4.0-10.0)
[2018-11-08 04:33] LABS: BLOOD UREA NITROGEN 6 MG/DL (7-18); CALCIUM LEVEL 7.1 MG/DL (8.5-10.1); CARBON DIOXIDE LEVEL 28 MEQ/L (21-32); CHLORIDE LEVEL 108 MEQ/L (98-107); CREATININE FOR GFR 0.43 MG/DL (0.70-1.30); GLOMERULAR FILTRATION RATE > 60.0 (>56); GLUCOSE, FASTING 154 MG/DL (70-100); MAGNESIUM LEVEL 1.3 MG/DL (1.8-2.4); POTASSIUM SERUM 3.4 MEQ/L (3.5-5.1); SODIUM LEVEL 141 MEQ/L (136-145)
[2018-11-08 04:38] LABS: ANISOCYTOSIS 2+; EOSINOPHILS 1 % (0-5); LYMPHOCYTES 13 % (16-52); MONOCYTES 2 % (0-8); MYELOCYTES 1 % (0-0); NEUTROPHILS 77 % (35-75); PLATELET ESTIMATE NORMAL (NORMAL)
[2018-11-08 04:41] LABS: HYPOCHROMASIA 2+; POLYCHROMASIA 1+
--- NOTE | 2018-11-08 05:26 | REPVR ---
EXAM: XR Chest, 1 View EXAM DATE/TIME: 11/08/2018 4:20 AM CLINICAL HISTORY: 58 years old, male; Signs and symptoms; Shortness of breath; Patient HX: Chest tube removed today. ; Additional info: Sob/<hr TECHNIQUE: Imaging protocol: XR of the chest, 1 view. COMPARISON: CR Chest, 2 view PA, Lat 11/07/2018 7:54 AM FINDINGS: Tubes, catheters and devices: Interval removal of right chest tube since the prior study. Lungs: The lungs are unchanged. Pleural space: No pneumothorax. Persistent right paratracheal thickening. Heart/Mediastinum: The heart and mediastinum are unchanged. Bones/joints: Unremarkable. Soft tissues: Minimal subcutaneous emphysema along the lateral aspect of the right hemithorax which is slightly decreased. IMPRESSION: 1. Interval removal of right chest tube since 11/07/2018. No pneumothorax. The 2. Slightly decreased subcutaneous emphysema with minimal residual. 3. Otherwise stable chest. Electronically signed by: Neil Aden On 11/08/2018 05:25:38 AM
[2018-11-08] MEDS: KETOROLAC 30 MG/ML VIAL (J1885) IV SCH ×4 (05:34→22:07)
--- NOTE | 2018-11-08 06:25 | IPN ---
DATE OF VISIT: Mr. Wu is seen on progressive care unit (PCU). He was signed out to me by one of the hospitalists this morning. He was admitted to the hospital on 11/05 with cough, syncope and shortness of breath. He was found to have a large pleural effusion. He had a chest tube placed and he says he feels a lot better. He seems a little frustrated right now, as he is feeling better but not able to go home yet. He was diagnosed with lung cancer several months ago with Stage IV. The treatment that he is currently getting is palliative. He has finished radiation and he was supposed to start chemotherapy later this week but he thinks he is going to postpone this until he is feeling a little stronger. He is anxious to go home though. He does understand, however that when his chest tube comes out we need to observe him at least overnight afterwards to make sure that no leaks developed. He developed a fever last night, was cultured up and started on IV antibiotics. He feels mildly short of breath at times, he is not having any chest pains or abdominal pains. He says his appetite is good. He is not having any edema, not feeling dizzy or lightheaded. CURRENT MEDICATIONS: His current medication regimen includes: - IV vancomycin and Zosyn - Protonix - Colace - Xopenex - he has Toradol available IV - Forrest or oxycodone available for pain and actually has not used this - he also has not used Zofran - he has not used as needed nebulizers PHYSICAL EXAMINATION VITAL SIGNS: On examination temperature is 98.3. It had been 102.9 as recently as last night. Blood pressure 106/71, pulse was 122 and regular, respiratory rate 22, O2 saturation on room air is 99%. GENERAL: He is alert, oriented and cooperative, he does not appear in any distress. LUNGS: His lungs actually sound clear. HEART: Heart has a regular rhythm without any murmur, click or gallop. ABDOMEN: Soft and nontender without any masses or organomegaly. Bowel sounds are active. EXTREMITIES: There is no edema. LABORATORY DATA: His hemoglobin is 8.0, WBCs 2100, platelet count 115, 000. His sodium is 140, potassium 3.4, BUN 9, creatinine 0.44, glucose was 168. His respiratory virus panel was negative. His blood cultures are pending. IMAGING: I reviewed his chest x-rays from yesterday and they appear to be relatively good. He does have chronic infiltrates that could be tumor or scarring but it appears that the chest tube has done a good job of draining fluid from his right hemithorax. . ASSESSMENT: 1. Pleural effusion: Probably malignant related to his known adenocarcinoma of the lung. 2. Fevers. He is currently on antibiotics, we are awaiting cultures. 3. Lactic acidosis. He is getting fluids. 4. Hypotension, his pressures are better. He says that his blood pressures normally run low. PLAN: My understanding is his chest tube may come out today. He should continue on IVs and an IV antibiotics. From my [id number] he really actually looks pretty good and acts pretty good, he is not acting sick. acting more like he wants to go home. We are awaiting his culture results. I suspect that they will be negative. His fever may be related to the chest tube or to his tumor. I asked him to try to take it one day at a time. Inasmuch as he is anxious to go home, not only do we have to wait for the chest tube to come out but be satisfied that he no longer needs any IV antibiotic treatment. He has indicated that he is probably going to postpone his chemotherapy so he can feel better from this hospitalization before he pursues the next step. MEHNAZ
[2018-11-08] MEDS: MOM 30ML SUSPENSION UDC PO SCH (08:21)
--- NOTE | 2018-11-08 08:39 | IPN ---
DATE: 11/07/2018 Mr. Wu spiked a temperature yesterday to 103.6. Concurrently with that, he dropped his blood pressure to the low 80s to 90s. To see him today, he seems perfectly okay as far as his mentation goes and he is in fact wanting to go home and wishing to go home tomorrow no matter what. His vital signs show the above maximum temperature with a heart rate that ranges between 109 and 149, now in sinus rhythm, respiratory rate of 18 to 20 without the use of accessory muscles, who is 95 to 99% saturated on room air. His blood pressure is ranging between 92/60 to 86/54. His intake and output over the past 24 hours has been recorded as 5095 in and 1190 out for a positivity of 3900 mL. He has taken in 3100 mL in oral intake and nearly 2000 mL in IV intake. He put out 165 mL out of the chest tube and there is no air leak. Weight today is 70.5 kg compared to 65.5 kg yesterday. PHYSICAL EXAMINATION LUNGS: His lungs show equal breath sounds on either side. I hear rhonchi in the right lung, most of which clears with coughing. Percussion note is full to the diaphragm. CARDIAC EXAM: Without murmurs, clicks, gallops or rubs. I cannot feel his point of maximum impulse (PMI). S1, S2 are normal. ABDOMEN: Soft, nontender. Bowel sounds positive. There is no hepatomegaly. No costovertebral angle tenderness. EXTREMITIES: Show no pretibial edema. No calf tenderness. No differential swelling of the upper extremities. SKIN: Warm, dry and perfused without cyanosis or mottling, including that of the nail beds and knees. NECK: Supple. There is no jugular venous distention. No subcutaneous emphysema. Trachea is midline. MOUTH: Shows his mucous membranes to be pink and moist. Lips and commissures without lesions. There is no thrush. EYES: Show his pupils to be equal and reactive. Extraocular motion intact. Sclerae anicteric. NEUROLOGIC: Shows II through XII intact with gross motor and gross sensation intact. Gait is not tested. PSYCHIATRIC: Shows him to be awake and alert, oriented times three with appropriate mood and affect and conversational. His white count today is 2.1, unchanged from yesterday, with a hemoglobin and hematocrit of 8.0 and 27.1, unchanged from yesterday. Platelet count of 115 and stable. Differential shows 76% neutrophils, 13% lymphocytes, 5% monocytes. There are no other immature forms and no toxic granulations. Blood gas yesterday showed a pH of 7.43, PCO2 of 43 and a PO2 of 127 with a base excess of 4.1. His chemistries today shows marginally low potassium at 3.4. The remainder of his electrolytes are normal with a BUN and creatinine of 9 and 0.44, glucose of 168, and a calcium of 7.8. His lactic acid is 2.5, being 3.7 yesterday. It was noted that his pleural fluid shows a lymphocytic, monocytic and exudative process. His influenza A and B are negative. Microbiology: Gram-stain of his pleural fluid did not show any organisms. There is no growth, aerobically or anaerobically. His blood cultures are pending. His urinalysis yesterday is negative for leukocyte esterase with only a few white cells per high powered field and negative for bacteria. His chest x-ray today shows the lung fully expanded to the chest wall. There is minimal subcutaneous emphysema at the chest tube insertion site. There is no infiltrate on the right side. There looks to be an infiltrative process on the left side, which represents his prior masses. Review of the CT angio of his chest done on 11/05/2018 shows infiltrative process in the left upper lobe and the right lower lobe. On further consideration, these look more infiltrative than mass-like and could potentially be a source of his fever. He is now currently on vancomycin and Zosyn. IMPRESSION: 1. Neutropenic fever, unknown origin. 2. Pleural effusion. 3. Diabetes. 4. Tobacco abuse. 5. Chronic obstructive pulmonary disease (COPD). 6. Infiltrative processes in left upper and left lower lobes, maybe source of fever. PLAN AND DISCUSSION: He has drained very little from the chest tube, even with his increased fluid. I will therefore discontinue the chest tube. I agree with the broad spectrum antibiotics. His blood cultures are pending. Even though he is on antibiotics, we should get sputum cultures.
[2018-11-08] MEDS: VANCOMYCIN HCL 750 MG, VIAL MATE ADAPTER 1 EACH in D5W 250 ML IV SCH ×2 (08:43→16:34)
[2018-11-08] MEDS: KCL 20MEQ IN D5/NS 1000ML 1,000 ML IV SCH (08:43)
[2018-11-08] MEDS: MAG SULF 1GM/100ML (MAG RUN) 1 GM in APPROPRIATE DILUENT 1 EA IV SCH ×2 (08:44→09:50)
[2018-11-08] MEDS: MAGNESIUM OXIDE 400 MG TAB (MAG-OX) PO SCH ×2 (08:44→21:07)
[2018-11-08] MEDS: PANTOPRAZOLE 40MG TAB (PROTONIX) PO SCH (08:44)
[2018-11-08] MEDS: POTASSIUM CHLORIDE 10 MEQ SR TABLET PO SCH ×2 (08:44→21:07)
[2018-11-08] MEDS: DOCUSATE SODIUM 100 MG CAP PO SCH ×2 (09:06→21:07)
--- NOTE | 2018-11-08 09:22 | REP ---
CHEST X-RAY: Two views. HISTORY: Effusion. COMPARISON CHEST X-RAY: November 08, 2018. FINDINGS: Left perihilar infiltrate persists. There is slight blunting of the pleural angles bilaterally. Fissural thickening is seen on the lateral radiograph. Right mediastinal lymphadenopathy is observed. No new infiltrate is seen. IMPRESSION: Right mediastinal lymphadenopathy. Pulmonary vascular congestion and left perihilar infiltrate. Small bilateral pleural effusions. Electronically Signed by Steve Kemp MD 11/08/2018 11:34 A
--- NOTE | 2018-11-08 10:24 | IPN ---
DATE: 11/07/2018 I saw this patient around 05:30 this afternoon to reassess his clinical status. At the time, he was sitting up on the couch and saying that he felt well, denying any dyspnea, pain, dizziness or lightheadedness. He had been noted to have a fever again this afternoon up to 102.1. It was the fever last evening that resulted in his being put on antibiotics and being cultured up. His cultures are thus far negative. Earlier before the fever and after he had his chest tube removed, he was running blood pressures in the 70s despite feeling asymptomatic. We did order several boluses of 500 mL of saline with improvement in his blood pressure.. Currently, his blood pressure is variable, running from 82-105 systolic, pulse running 120 is 130s and may go higher when he gets up and walks. His chest x-ray after he had the chest tube removed did look pretty good. He certainly is not having any dysuria. No abdominal symptoms. No chest symptoms at this time. Another issue was that the patient had an eight beat per run of ventricular tachycardia without any symptoms and as a result we ordered a potassium level and magnesium level. Indeed his potassium this morning was 3.40 and we put him on some supplemental potassium and his magnesium was within normal limits yesterday at 1.9. This gentleman's current status is that he looks better than his numbers and still insists that he is going be discharged tomorrow. He is continuing on his antibiotics and we plan to support his blood pressures with additional boluses of IV fluids if indicated. MEHNAZ
--- NOTE | 2018-11-08 11:48 | IPNPDOC ---
Subjective Date Seen The patient was seen on 11/08/18. Subjective Chief Complaint/HPI pleural effusion Events since last encounter chest tube removed yesterday. Tolerated well. Has had some bouts of hypokalemia and hypomagnesemia. Receiving replacement with slow improvement in levels. Constitutional: Reports: Chills, Fever, Night Sweats (intermittent) Pulmonary: Reports: Dyspnea, Cough Cardiovascular: Denies: Chest Pain, Palpitations, Orthopnea, Paroxysmal Noc. Dyspnea, Lt Headedness Objective Physical Examination General Exam: Positive: Alert, No Acute Distress Chest Exam: Positive: Clear to auscultation, Normal air movement, Other (chest tube dressing intact. ) Heart Exam: Positive: Rate Normal, Regular Rhythm, Normal S1, Normal S2; Negative: Murmurs, Rubs Abdomen Exam: Positive: Normal bowel sounds, Soft; Negative: Tenderness, Hepatospenomegaly Assessment /Plan Problems (1) Pleural effusion Status: Acute Problem Text: s/p drainage with chest tube. CXR stable today after removal of CT (2) Adenocarcinoma of right lung Onset Date: ~ 08/2018 Status: Acute Problem Text: planning on palliative treatment through oncology (3) Rigors Status: Chronic Response to Treatment: Uncontrolled Discussed With: Nurse, Patient, Family with Pt Consent Problem Text: He continues to spike fevers and did so today between 12-1pm. A new set of blood cx was ordered as well as a new UA and UCx; blood was specifically evaluated for fungal culture and smear as well. Additionally urine for trichomoniasis was ordered. (4) Hypomagnesemia Status: Acute Problem Text: level 1.3 today. ordered 2 runs, repeat labs at 1200 today. (5) Hypokalemia Status: Acute Problem Text: level of 3.4 today Plan/VTE VTE Prophylaxis Ordered?: Yes (Lovenox) Plan Family Medicine Attending Note: I saw and examined Mr. Wu, discussed with ALEX Mixon. Agree with her note as documented. I was called to his bedside this afternoon because he spiked a temperature, was tachycardic, tachypnea, and having rigors. I had a strong suspicion that this was a sepsis syndrome. Therefore I ordered lactic acid level, a 1 L bolus of normal saline (his blood pressure was stable at the time, which is why did not order 30 mg/kg), repeat urine culture, and repeat blood cultures. As this was now the third set of blood cultures that has been ordered I ordered a specific fungal blood culture and smear. Additionally, after I had spoken to family, his spoke to the nurse in private. She disclosed that 1 year ago she had been diagnosed with trichomoniasis. He has denied any infidelity and claimed that she must have got it from someone else. She is clear that she had only slept with one person recently, this patient. Unfortunately he has not been to the doctor for around 40 years prior to this and never received any evaluation or treatment after her diagnosis. Because of this information I also ordered urine for GC, chlamydia, and trichomoniasis. The patient's son also reports that these rigors are not new; apparently the patient has been having them intermittently for several months. I spoke with Dr. Garner, his oncologist. She reaffirms that he has not had chemotherapy yet (although this is planned), so his immune dysfunction is not from that. She also states it is possible, although very rare, to have intermittent fevers and rigors from cancer itself. Hopefully this new evaluation will give us a better sense of what's going on with him. 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) VS, I&O, 24H, Fishbone Vital Signs/I&O Vital Signs Date Time Temp Pulse Resp B/P (MAP) Pulse Ox O2 Delivery O2 Flow Rate FiO2 11/08/18 08:24 120 122/58 (79) 11/08/18 08:00 96.8 22 99 11/08/18 04:00 2.0 11/05/18 13:40 Room Air I&O- Last 24 Hours up to 6 AM 11/08/18 06:00 Intake Total 3190 ml Output Total 1300 ml Balance 1890 ml Laboratory Data 24H LABS Laboratory Tests 2 11/07/18 12:39: Lactic Acid Followup at 4 Hours 2.2*H 11/07/18 14:52: Anion Gap 5L, Glomerular Filtration Rate > 60.0, Blood Urea Nitrogen 9, Creatinine 0.42L, Sodium Level 140, Potassium Level 3.2L, Chloride Level 107, Carbon Dioxide Level 28, Calcium Level 7.2L, Magnesium Level 1.2L, Vancomycin Level Trough 9.8L 11/08/18 04:03: Anion Gap 5L, Glomerular Filtration Rate > 60.0, Blood Urea Nitrogen 6L, Creatinine 0.43L, Sodium Level 141, Potassium Level 3.4L, Chloride Level 108H, Carbon Dioxide Level 28, Calcium Level 7.1L, Magnesium Level 1.3L, Nucleated Red Blood Cells % (auto) 0.0, Neutrophils 77H, Band Neutrophils 6, Lymphocytes (Manual) 13L, Monocytes (Manual) 2, Eosinophils (Manual) 1, Myelocytes 1H, Platelet Estimate NORMAL, Polychromasia 1+, Hypochromasia 2+, Basophilic Stippling 1+, Anisocytosis 2+ CBC/BMP Laboratory Tests 11/07/18 14:52 Calcium Level 7.2 L 11/08/18 04:03 Calcium Level 7.1 L, Red Blood Count 3.32 L, Mean Corpuscular Volume 92.8, Mean Corpuscular Hemoglobin 27.4, Mean Corpuscular Hemoglobin Concent 29.5 L, Red C ell Distribution Width 18.1 H Microbiology Microbiology 11/06/18 Blood Culture - Preliminary, Resulted No growth after 24 hours . All specim... 11/06/18 Blood Culture - Preliminary, Resulted No growth after 24 hours . All specim... 11/05/18 Blood Culture - Preliminary, Resulted No Growth after 48 hours. All Specime... 11/05/18 Blood Culture - Preliminary, Resulted No Growth after 48 hours. All Specime... 11/05/18 Acid Fast Stain, Received Pending 11/05/18 Mycobacterial Culture, Received Pending 11/05/18 Fungal Smear, Received Pending 11/05/18 Fungal Culture, Received Pending 11/05/18 Gram Stain - Final, Complete 11/05/18 Anaerobic Culture - Final, Complete 11/05/18 Body Fluid Culture - Final, Complete 11/06/18 Respiratory Virus Panel (PCR) ([facility]) - Final, Complete 11/06/18 MRSA Screen - Final, Complete Adrienne Romero Nov 08, 2018 11:48 Clinton Loza MD Nov 08, 2018 14:27
[2018-11-08] MEDS: LEVALBUTEROL 1.25 MG/0.5 ML CONCENTRATE NEB NEB PRN (12:17)
[2018-11-08] MEDS: ACETAMINOPHEN TAB 650MG DOSE (2X325MG) PO PRN ×2 (12:25→17:39)
[2018-11-08] MEDS ORDERED: SODIUM CHLORIDE 0.9% 1000ML IV SCH (13:00)
[2018-11-08 13:13] LABS: BLOOD UREA NITROGEN 8 MG/DL (7-18); CALCIUM LEVEL 7.6 MG/DL (8.5-10.1); CARBON DIOXIDE LEVEL 29 MEQ/L (21-32); CHLORIDE LEVEL 105 MEQ/L (98-107); CREATININE FOR GFR 0.41 MG/DL (0.70-1.30); GLOMERULAR FILTRATION RATE > 60.0 (>56); GLUCOSE, FASTING 155 MG/DL (70-100); MAGNESIUM LEVEL 1.8 MG/DL (1.8-2.4); POTASSIUM SERUM 3.5 MEQ/L (3.5-5.1); SODIUM LEVEL 137 MEQ/L (136-145)
[2018-11-08] MEDS ORDERED: ENOXAPARIN 40 MG/0.4 ML SYRINGE (J1650) SC ONE (14:00)
[2018-11-08 16:05] LABS: CHLAMYDIA DNA AMPLIFICATION NEGATIVE (NEGATIVE); GC DNA AMPLIFICATION NEGATIVE (NEGATIVE)
--- NOTE | 2018-11-08 17:00 | PHACANCOPD ---
PHARMACY VANCOMYCIN DOSING Pt Demographics Demographics Patient Age:58 , Weight:73.000 , Gender: male Adjusted Body Weight Date: 11/08/18, Adjusted Body Weight: Kg Events Past 24 Hours Events Past 24 Hours: NO: Dialysis, Diuretic Therapy, Change in CrCl, Fever, Elevation in WBC, Pending Diagnostics, Pending Procedures, Other Vancomycin Vancomycin indication: NEUTROPENEIC FEVER Vancomycin Target Ranges: 15-20 mcg/ml Vancomycin Load Y/N: No Load Dose Date Time Vancomycin Load Dose: Date: Time: Vancomycin Dose Date: 11/08/18. Current Vancomycin Dose: [1G IV EVERY 6 HOURS] Intermittent Dosing?: No Labs Labs Item Value Date Time White Blood Count 2.1 10^3/uL L 11/06/18 0522 White Blood Count 2.1 10^3/uL L 11/07/18 0459 White Blood Count 2.9 10^3/uL L 11/08/18 0403 Creatinine 0.42 MG/DL L 11/07/18 1452 Creatinine 0.43 MG/DL L 11/08/18 0403 Creatinine 0.41 MG/DL L 11/08/18 1210 Vancomycin Level Trough 9.8 UG/ML L 11/07/18 1452 Vancomycin Level Trough 10.8 UG/ML 11/08/18 1458 Micro Microbiology 11/08/18 Blood Culture, Received Pending 11/08/18 Blood Culture, Received Pending 11/06/18 Blood Culture - Preliminary, Resulted No Growth after 48 hours. All Specime... 11/06/18 Blood Culture - Preliminary, Resulted No Growth after 48 hours. All Specime... 11/05/18 Blood Culture - Preliminary, Resulted No Growth after 72 hours. All specime... 11/05/18 Blood Culture - Preliminary, Resulted No Growth after 72 hours. All specime... 11/05/18 Acid Fast Stain, Received Pending 11/05/18 Mycobacterial Culture, Received Pending 11/05/18 Fungal Smear, Received Pending 11/05/18 Fungal Culture, Received Pending 11/05/18 Gram Stain - Final, Complete 11/05/18 Anaerobic Culture - Final, Complete 11/05/18 Body Fluid Culture - Final, Complete 11/06/18 Respiratory Virus Panel (PCR) ([facility]) - Final, Complete 11/06/18 MRSA Screen - Final, Complete 11/08/18 Urine Culture, Received Pending Creatinine Clearance Date:11/08/18. Creatinine Clearance: [~180ML/MIN]. Pending Labs VANCOMYCIN TROUGH 11/09 @ Assessment and Plan Maintaining Current Dose?: No Reason for dose change: Trough too low Pharmacist Note Pharmacist Note Date: 11/08/18. Pharmacist note: Pt is a 58 year old male being treated for neutropenic fever goal trough 15-20cg/ml. Trough came back today at 10.8mcg/ml. at 14:58. Dosing will be changed to 1g IV every 6 hours starting 11/08/18 @22:00. We will continue to monitor and adjust the dose as needed. [facility] Nov 08, 2018 17:00
[2018-11-08] MEDS ORDERED: KCL 20MEQ in NS 1000ML 1,000 ML IV SCH (22:00)
[2018-11-08] MEDS: VANCOMYCIN HCL 1,000 MG, VIAL MATE ADAPTER 1 EACH in D5W 250 ML IV SCH (22:07)
[2018-11-09] VITALS: BP 93/54
[2018-11-09] MEDS: LEVALBUTEROL 1.25 MG/0.5 ML CONCENTRATE NEB NEB SCH ×3 (01:35→14:00)
[2018-11-09] MEDS: PIPERACILLIN/TAZOBACTAM SOD 4.5 GM in D5W MINI-BAG PLUS 50 ML IV SCH ×3 (03:00→15:51)
[2018-11-09 04:00] VITALS: BP 108/77
[2018-11-09] MEDS: LEVALBUTEROL 1.25 MG/0.5 ML CONCENTRATE NEB NEB PRN ×2 (04:29→16:05)
[2018-11-09] MEDS: ACETAMINOPHEN TAB 650MG DOSE (2X325MG) PO PRN ×2 (04:45→16:04)
[2018-11-09] MEDS: VANCOMYCIN HCL 1,000 MG, VIAL MATE ADAPTER 1 EACH in D5W 250 ML IV SCH ×3 (04:46→16:05)
[2018-11-09] MEDS: KETOROLAC 30 MG/ML VIAL (J1885) IV SCH ×3 (05:00→16:05)
[2018-11-09] MEDS ORDERED: NS 500 ML IV ONE (05:30)
[2018-11-09 06:11] LABS: BASO % 0.4 % (0.0-1.0); EOS # 0.1 10^3/uL (0.0-0.50); EOS % 1.9 % (0.0-3.0); HEMATOCRIT 28.6 % (42.0-52.0); HEMOGLOBIN 8.7 g/dl (13.5-17.5); LYMPH # 0.6 10^3/uL (1.5-4.5); LYMPH % 21.5 % (24.0-44.0); MEAN CORPUSCULAR HEMOGLOBIN 26.9 pg (27.0-33.0); MEAN CORPUSCULAR HGB CONC 30.4 g/dl (32.0-36.5); MEAN CORPUSCULAR VOLUME 88.3 fl (80.0-96.0); MONO # 0.2 10^3/uL (0.0-0.8); MONO % 6.8 % (0.0-5.0); NEUTROPHILS # 1.8 10^3/uL (1.8-7.7); NEUTROPHILS % 67.9 % (36.0-66.0); PLATELET COUNT, AUTOMATED 124 10^3/uL (150-450); RED BLOOD COUNT 3.24 10^6/uL (4.30-6.10); WHITE BLOOD COUNT 2.7 10^3/uL (4.0-10.0)
[2018-11-09 06:36] LABS: ALBUMIN 1.1 GM/DL (3.2-5.2); ALT/SGPT 19 U/L (12-78); BILIRUBIN,TOTAL 0.3 MG/DL (0.2-1.0); BLOOD UREA NITROGEN 5 MG/DL (7-18); CALCIUM LEVEL 7.5 MG/DL (8.5-10.1); CARBON DIOXIDE LEVEL 28 MEQ/L (21-32); CHLORIDE LEVEL 106 MEQ/L (98-107); GLOMERULAR FILTRATION RATE > 60.0 (>56); GLUCOSE, FASTING 130 MG/DL (70-100); POTASSIUM SERUM 3.5 MEQ/L (3.5-5.1); SODIUM LEVEL 139 MEQ/L (136-145); TOTAL PROTEIN 5.4 GM/DL (6.4-8.2)
[2018-11-09 07:37] LABS: MAGNESIUM LEVEL 1.5 MG/DL (1.8-2.4)
[2018-11-09 08:00] VITALS: BP 102/70
--- NOTE | 2018-11-09 08:18 | IPN ---
DATE: 11/08/2018 Mr. Wu has again spiked a temperature to 102.3. He is threatening to go home although we have talked him out of it today. His heart rate has been up to 177 and is now running around 130s in a sinus rhythm. Respiratory rate is 20 to 28 without the use of accessory muscles. He is 92 to 93% saturated on room air. His blood pressure is ranging between 120/70 to 108/72. His intake and output over the past 24 hours has been recorded as 4110 in and 2240 out for a positivity of 1870 mL. His chest tubes were removed yesterday. He weighs 73 kg today compared to 70.5 kg yesterday. PHYSICAL EXAMINATION LUNGS: He has equal breath sounds on either side. I hear bilateral crackles during late inspiration. Percussion note is full to the diaphragm. CARDIAC EXAM: Without murmurs, clicks, gallops or rubs. I cannot feel his point of maximum impulse (PMI). S1, S2 are normal. ABDOMEN: Soft, nontender. Bowel sounds positive. There is no hepatomegaly. No costovertebral angle tenderness. EXTREMITIES: Show 1 to 2+ pretibial edema, which is a change from yesterday. There is no calf tenderness. His right upper extremity forearm is more edematous than his left. SKIN: Warm, dry and perfused without cyanosis or mottling, including that of the nail beds and knees. NECK: Supple. There is no jugular venous distention. No subcutaneous emphysema. Trachea is midline. MOUTH: Shows his mucous membranes to be pink and moist. Lips and commissures without lesions. There is no thrush. EYES: Show his pupils to be equal and reactive. Extraocular motion intact. Sclerae anicteric. NEUROLOGIC: Shows II through XII intact with gross motor and gross sensation intact. Gait is not tested. PSYCHIATRIC: Shows him to be awake and alert, oriented times three with appropriate mood and affect and conversational. His white count today is 2.9, up from 2.1 yesterday, hemoglobin and hematocrit of 9.1 and 30.8, respectively. Platelet count is 114 and stable. Differential shows 77% neutrophils, 13% lymphocytes, 6% bands and 2% monocytes. He has 1 myelocyte. His chemistries show normal electrolytes with a BUN and creatinine of 8 and 0.41, glucose of 155 with a calcium of 7.6. Magnesium 1.8. His lactic acid is 2.2, essentially unchanged from yesterday's of 2.5. His chest x-ray shows his lungs fully expanded to the chest wall. Costophrenic angles are sharp. He still has the infiltrative pattern in the left lung in the mid lung jones. Microbiology: Shows all blood cultures negative. Pleural fluid is negative. IMPRESSION: 1. Neutropenic fever, unknown origin. 2. Pleural effusion, resolved with chest tube. 3. Diabetes. 4. Tobacco abuse. 5. Chronic obstructive pulmonary disease (COPD). 6. Infiltrative processes in left upper and left lower lobes, possible source of fever. PLAN AND DISCUSSION: From my perspective, I removed the dressing and his chest did not reaccumulate fluid. I will follow his chest x-ray tomorrow. He is actually adamant about going home tomorrow and I have had to inform him that he has a very serious problem having a neutropenic fever and that he should listen well to his medical physicians. We certainly cannot hold him against his will, but if he does go home I would not be surprised if he came back in a week.. YORDAND
[2018-11-09] MEDS: MOM 30ML SUSPENSION UDC PO SCH (09:04)
[2018-11-09] MEDS: PANTOPRAZOLE 40MG TAB (PROTONIX) PO SCH (09:04)
[2018-11-09] MEDS: POTASSIUM CHLORIDE 10 MEQ SR TABLET PO SCH (09:04)
[2018-11-09] MEDS: MAGNESIUM OXIDE 400 MG TAB (MAG-OX) PO SCH (09:04)
[2018-11-09] MEDS: DOCUSATE SODIUM 100 MG CAP PO SCH (09:04)
--- NOTE | 2018-11-09 09:13 | REP ---
CHEST X-RAY: TWO VIEWS. HISTORY: Effusion. COMPARISON CHEST X-RAY: November 08, 2018 FINDINGS: There is extrathoracic subcutaneous air along the right chest wall somewhat decreased in amount. Right paratracheal mediastinal enlargement is seen consistent with adenopathy. There are bilateral perihilar opacities and bibasilar opacities. These are more prominent on the right today. There is some fissural thickening on the right and blunting of the right lateral pleural angle is seen. Lateral view shows more fissural thickening and bilateral pleural angle blunting. IMPRESSION: Small bilateral pleural effusions somewhat increased. Perihilar parenchymal opacities again seen. These are more prominent on the right today. Mediastinal adenopathy. Electronically Signed by Steve Kemp MD 11/09/2018 08:24 P
[2018-11-09] MEDS: MAG SULF 1GM/100ML (MAG RUN) 1 GM in APPROPRIATE DILUENT 1 EA IV SCH ×2 (10:04→11:24)
[2018-11-09 12:00] VITALS: BP 98/64
--- NOTE | 2018-11-09 12:20 | IPN ---
DATE: 11/09/2018 Mr. Wu spiked a temperature again to 101.7 yesterday. This morning he was 100.5. He is breathing well and he is feeling fairly well. His vital signs show a heart rate that ranges between 120-140 in sinus tachycardia with a respiratory rate of 18-22 without the use of accessory muscles, who is 92% saturated on room air and his blood pressure is ranging between 93/54-102/70. His intake and output for the past 24 hours has been recorded as 3330 in and 700 out for a positivity of 2630 mL. His chest tubes was removed the day before. He weighs 73 kg today, which is the same as yesterday. He has had 700 mL out in urine. On physical examination, his lungs sound equal on either side. I do hear some inspiratory rales but very faint. Percussion note is full to the diaphragm. Cardiac exam is without murmurs, clicks, gallops or rubs. I cannot feel his point of maximum impulse (PMI). S1 and S2 are normal. Abdomen is soft, nontender. Bowel sounds are positive. There is no hepatomegaly. No costovertebral angle (CVA) tenderness. Extremities shows 1+ pretibial edema. No calf tenderness. No differential swelling of the upper extremities. Skin is warm dry and perfused without cyanosis or mottling including that of the nail beds and knees. Neck is supple. There is no jugular venous distention. No subcutaneous emphysema. Trachea is midline. Mouth shows the mucous membranes to be pink and moist. Lips and commissures without lesions. There is no thrush. Eyes show his pupils equal and reactive. Extraocular motion intact. Sclerae anicteric. Neurologic shows II-XII intact with gross motor and gross sensation intact. Gait is not tested. Psychiatric shows him to be awake and alert, oriented times three with appropriate mood and affect and conversational. His white count today is 2.7 with hemoglobin and hematocrit of 8.7 and 28.6 probably secondary to hemodilution. Platelet count is 124 and stable. Differential shows 67% neutrophils, 21% lymphocytes, 6% monocytes. There are no immature forms. No toxic granulations. Electrolytes are normal with a BUN and creatinine of 5 and 0.4. Calcium is 7.5 with a magnesium of 1.5. AST and ALT are normal and his albumin is 1.1. His chest x-ray today shows a sharp costophrenic angle. He does have some type of an infiltrative process now in his left and right lung lower lobes. It could just be volume and interstitial edema. There is a different change from yesterday to today. IMPRESSION: 1. Neutropenic fever, unknown origin. 2. Pleural effusion, resolved with chest tube and remains at bay. 3. Diabetes. 4. Tobacco abuse. 5. Chronic obstructive pulmonary disease (COPD). 6. Infiltrative process left upper and lower lobes and now right lower lobe. PLAN AND DISCUSSION: As his pleural effusion is now resolved, I will withdraw from the case. If the pleural effusion recurs, I am very sure I will be called again. He should followup with Dr. Taylor of oncology. He still has a neutropenic fever, which needs to be tracked to ground. [facility]
--- NOTE | 2018-11-09 13:40 | IPNPDOC ---
Subjective Date Seen The patient was seen on 11/09/18. Subjective Chief Complaint/HPI continued fevers and chills, no answers yet Events since last encounter He reports that he has felt reasonably well overnight. He clarified with me that he has been having fevers, sweats, and rigors since sometime in February 2018. His daughter and nursing report that his ankles are swelling up with all of the fluid boluses he has been given. He expresses frustration that we are not getting answers to what is wrong with him; he wants to see an infection disease doctor or he would like to be transferred to [place]. Constitutional: Reports: Chills, Fever, Night Sweats (intermittent) Skin: Denies: Rash, Lesions Pulmonary: Reports: Dyspnea, Cough Cardiovascular: Reports: Edema; Denies: Chest Pain, Palpitations Gastrointestinal: Denies: Nausea, Vomiting Genitourinary: Denies: Dysuria Psych: Reports: Anger Objective Physical Examination General Exam: Positive: Alert, Cooperative (after he warmed up), No Acute Dist ress (sitting up in his bed with his family around talking when I entered the room) Eye Exam: Negative: Sclera icteric ENT Exam: Positive: Mucous membr. moist/pink Neck Exam: Positive: Supple Chest Exam: Positive: Clear to auscultation, Normal air movement Heart Exam: Positive: Rate Normal, Regular Rhythm, Normal S1, Normal S2; Negative: Murmurs, Rubs Abdomen Exam: Positive: Normal bowel sounds, Soft; Negative: Tenderness, Hepatospenomegaly Extremity Exam: Positive: Edema (2mm of pitting edema to the malleoli bilaterally) Skin Exam: Positive: Nl turgor and temperature; Negative: Rash Neuro Exam: Positive: Normal Speech Psych Exam: Positive: Mood NL (he exhibits a normal range of emotions for someone in his situation. He started out sullen and ended the visit on a more positive note.) Assessment /Plan Problems (1) Rigors Status: Chronic Response to Treatment: Uncontrolled Discussed With: Nurse, Patient, Family with Pt Consent Problem Specific Plan: Consult Specialist (Dr. Law) Problem Text: He clarified that he has had these symptoms basically every other day since about February of 2018; the length of his symptoms is certainly news to me. It encourages me that this may not be an infection poised to take over his body, but rather a part of his cancer process. This isn't necessarily good for him, but makes discharging him so that he can get the other treatments he wants a possibility. (2) Adenocarcinoma of right lung Onset Date: ~ 08/2018 Status: Acute Problem Text: He continues to plan for palliative treatment through oncology. (3) Hypomagnesemia Status: Acute Problem Text: His mag is down to 1.5 and he received 2 grams of IV magnesium supplementation today. (4) Hypokalemia Status: Acute Problem Text: Stable at 3.5 today. (5) Pleural effusion Status: Resolved Problem Text: s/p drainage with chest tube. CXR stable today after removal of CT Plan/VTE VTE Prophylaxis Ordered?: Yes (Lovenox) VS, I&O, 24H, Fishbone Vital Signs/I&O Vital Signs Date Time Temp Pulse Resp B/P (MAP) Pulse Ox O2 Delivery O2 Flow Rate FiO2 11/09/18 12:00 98.3 111 22 98/64 (75) 96 11/08/18 12:35 2.0 11/05/18 13:40 Room Air I&O- Last 24 Hours up to 6 AM 11/09/18 06:00 Intake Total 5350 ml Output Total 400 ml Balance 4950 ml Laboratory Data 24H LABS Laboratory Tests 2 11/08/18 14:22: Chlamydia trachomatis DNA ([facility]) NEGATIVE, Neisseria gonorrhoeae DNA ([facility]) NEGATIVE, Trichomonas vaginalis (PCR) NOT DETECTED 11/08/18 14:58: Vancomycin Level Trough 10.8 11/09/18 05:25: Immature Granulocyte % (Auto) 1.5, White Blood Count 2.7L, Red Blood Count 3.24L, Hemoglobin 8.7L, Hematocrit 28.6L, Mean Corpuscular Volume 88.3, Mean Corpuscular Hemoglobin 26.9L, Mean Corpuscular Hemoglobin Concent 30.4L, Red Cell Distribution Width 18.3H, Platelet Count 124L, Neutrophils (%) (Auto) 67.9H, Lymphocytes (%) (Auto) 21.5L, Monocytes (%) (Auto) 6.8H, Eosinophils (%) (Auto) 1.9, Basophils (%) (Auto) 0.4, Neutrophils # (Auto) 1.8, Lymphocytes # (Auto) 0.6L, Monocytes # (Auto) 0.2, Eosinophils # (Auto) 0.1, Basophils # (Auto) 0.0, Nucleated Red Blood Cells % (auto) 0.0, Anion Gap 5L, Glomerular Filtration Rate > 60.0, Blood Urea Nitrogen 5L, Creatinine 0.40L, Sodium Level 139, Potassium Level 3.5, Chloride Level 106, Carbon Dioxide Level 28, Calcium Level 7.5L, Aspartate Amino Transf (AST/SGOT) 16, Alanine Aminotransferase (ALT/SGPT) 19, Alkaline Phosphatase 81, Total Bilirubin 0.3, Total Protein 5.4L, Albumin 1.1L, Magnesium Level 1.5L, Albumin/Globulin Ratio 0.26L CBC/BMP Laboratory Tests 11/09/18 05:25 Red Blood Count 3.24 L, Mean Corpuscular Volume 88.3, Mean Corpuscular Hemoglobin 26.9 L, Mean Corpuscular Hemoglobin Concent 30.4 L, Red Cell Distribution Width 18.3 H, Neutrophils (%) (Auto) 67.9 H, Lymphocytes (%) (Auto) 21.5 L, Monocytes (%) (Auto) 6.8 H, Eosinophils (%) (Auto) 1.9, Basophils (%) (Auto) 0.4, Neutrophils # (Auto) 1.8, Lymphocytes # (Auto) 0.6 L, Monocytes # (Auto) 0.2, Eosinophils # (Auto) 0.1, Basophils # (Auto) 0.0, Calcium Level 7.5 L, Aspartate Amino Transf (AST/SGOT) 16, Alanine Aminotransferase (ALT/SGPT) 19, Alkaline Phosphatase 81, Total Bilirubin 0.3, Total Protein 5.4 L, Albumin 1.1 L Microbiology Microbiology 11/08/18 Blood Culture, Received Pending 11/08/18 Blood Culture, Received Pending 11/06/18 Blood Culture - Preliminary, Resulted No Growth after 48 hours. All Specime... 11/06/18 Blood Culture - Preliminary, Resulted No Growth after 72 hours. All specime... 11/05/18 Blood Culture - Preliminary, Resulted No Growth after 72 hours. All specime... 11/05/18 Blood Culture - Preliminary, Resulted No Growth after 72 hours. All specime... 11/05/18 Acid Fast Stain, Received Pending 11/05/18 Mycobacterial Culture, Received Pending 11/05/18 Fungal Smear, Received Pending 11/05/18 Fungal Culture, Received Pending 11/05/18 Gram Stain - Final, Complete 11/05/18 Anaerobic Culture - Final, Complete 11/05/18 Body Fluid Culture - Final, Complete 11/06/18 Respiratory Virus Panel (PCR) ([facility]) - Final, Complete 11/06/18 MRSA Screen - Final, Complete 11/08/18 Urine Culture - Final, Complete Clinton Loza MD Nov 09, 2018 13:40
[2018-11-09 16:02] VITALS: BP 108/58
[2018-11-09 16:10] VITALS: BP 100/60
[2018-11-09 17:35] LABS: FREE T4 1.34 NG/DL (0.76-1.46); THYROID STIMULATING HORMONE 0.362 uIU/ML (0.358-3.740)
[2018-11-09] MEDS ORDERED: MAG400TA PO (19:52)
[2018-11-09] MEDS ORDERED: LEVA750T7 PO (19:52)
--- NOTE | 2018-11-09 19:53 | DS.PDOC ---
Discharge Summary General Date of Admission Nov 05, 2018 at 14:28 Date of Discharge 11/09/18 Primary Care Physician: Brandon Bolden M.D. Attending Physician: Clinton Loza MD Specialist/Consultants Involve: Cali Qiu M.D. Specialist/Consultants Involve Dr. Arcadio Law, infectious disease Discharge Summary ADMITTING DIAGNOSES: 1. Pleural effusion, most likely malignant effusion secondary to lung adenocarci noma. 2. 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 3. Pancytopenia, likely due to radiation therapy. 4. Hyponatremia. DISCHARGE DIAGNOSES: 1. Pleural effusion, resolved with chest tube. 2. Stage IV TX N3 M1a advanced right lung adenocarcinoma, receiving palliative through oncology. 3. Recurrent rigors with associated fever, etiology uncertain. 4. Pancytopenia. 5. Hypomagnesemia. 6. Hypokalemia, resolved. 7. Hyponatremia, resolved. 8. Type 2 diabetes, under poorer control because of dexamethasone. 9. Greater than 40 pack years of tobacco use. PROCEDURES PERFORMED DURING STAY: Insertion and subsequent removal of a right lateral chest tube. ADMISSION HISTORY: Winston Wu is a 58 YO former smoker currently undergoing palliative radiation therapy for stage 4 [id number] advanced R lung adenocarcinoma who presented with several days coughing spells and "passing out" due to inability to catch his breath when he is coughing.. Please see the admission history and physical for the remaining details. HOSPITAL COURSE: Mr. Wu was admitted with coughing spells and an inability to catch his breath when coughing. These were rapidly determined to be secondary to a pleural effusion that was drained by Dr. Qiu. He was able to keep the effusion at bay and remove the chest tube without significant reaccumulation of the effusion during this hospitalization. The patient also had recurrent episodic fevers with rigors and concerning signs for sepsis (tachycardia, intermittent hypotension, elevated lactate levels). Initially we treated each of these episodes aggressively, however, the patient later disclosed that these episodes have been going on for about 8 months and he has simply not reported them to anyone before. After that information was made available we began to think more about reactivation of an old viral infection, possible untreated STD, or possible fungemia. Testing was ordered for these and much of this is still pending at the time of discharge. I also consulted with infectious disease who helped conduct the investigation for occult or less usual sources of infection and suggested that, in light of the multiple negative blood cultures and respiratory panel, it was safe to discharge him home with close clinical follow- up. The patient was very eager to go home, and had been threatening to leave for several days at that point. He was discharged in the late afternoon as soon as the ID consultation was completed. DISCHARGE CONDITION: Guarded, but stable for home. FOLLOW-UP: Prior to discharge an appointment was scheduled with Sabra Allen NP on 11/10/18 at 1:00pm. He was also instructed to keep his pre- existing appointment with oncology on 11/12/18. DIET: As tolerated. ACTIVITY: As tolerated. DISCHARGE MEDICATIONS: Please see below. ALLERGIES: Please see below. LABORATORY DATA: Please see below. IMAGING: Multiple chest x-rays TIME SPENT ON DISCHARGE: Greater than 35 minutes. Vital Signs/I&Os Vital Signs Date Time Temp Pulse Resp B/P (MAP) Pulse Ox O2 Delivery O2 Flow Rate FiO2 11/09/18 16:06 153 24 96 2.0 11/09/18 16:02 99.9 108/58 (75) 11/05/18 13:40 Room Air I&O- Last 24 Hours up to 6 AM 11/09/18 06:00 Intake Total 5350 ml Output Total 400 ml Balance 4950 ml Laboratory Data Labs 24H Laboratory Tests 2 11/09/18 05:25: Immature Granulocyte % (Auto) 1.5, White Blood Count 2.7L, Red Blood Count 3.24L, Hemoglobin 8.7L, Hematocrit 28.6L, Mean Corpuscular Volume 88.3, Mean Corpuscular Hemoglobin 26.9L, Mean Corpuscular Hemoglobin Concent 30.4L, Red Cell Distribution Width 18.3H, Platelet Count 124L, Neutrophils (%) (Auto) 67.9H, Lymphocytes (%) (Auto) 21.5L, Monocytes (%) (Auto) 6.8H, Eosinophils (%) (Auto) 1.9, Basophils (%) (Auto) 0.4, Neutrophils # (Auto) 1.8, Lymphocytes # (Auto) 0.6L, Monocytes # (Auto) 0.2, Eosinophils # (Auto) 0.1, Basophils # (Auto) 0.0, Nucleated Red Blood Cells % (auto) 0.0, Anion Gap 5L, Glomerular Filtration Rate > 60.0, Blood Urea Nitrogen 5L, Creatinine 0.40L, Sodium Level 139, Potassium Level 3.5, Chloride Level 106, Carbon Dioxide Level 28, Calcium Level 7.5L, Aspartate Amino Transf (AST/SGOT) 16, Alanine Aminotransferase (ALT/SGPT) 19, Alkaline Phosphatase 81, Total Bilirubin 0.3, Total Protein 5.4L, Albumin 1.1L, Magnesium Level 1.5L, Albumin/Globulin Ratio 0.26L, Thyroid Stimulating Hormone (TSH) 0.362, Free Thyroxine 1.34 11/09/18 13:23: 11/09/18 17:37: CBC/BMP Laboratory Tests 11/09/18 05:25 Red Blood Count 3.24 L, Mean Corpuscular Volume 88.3, Mean Corpuscular Hemoglobin 26.9 L, Mean Corpuscular Hemoglobin Concent 30.4 L, Red Cell Distribution Width 18.3 H, Neutrophils (%) (Auto) 67.9 H, Lymphocytes (%) (Auto) 21.5 L, Monocytes (%) (Auto) 6.8 H, Eosinophils (%) (Auto) 1.9, Basophils (%) (Auto) 0.4, Neutrophils # (Auto) 1.8, Lymphocytes # (Auto) 0.6 L, Monocytes # (Auto) 0.2, Eosinophils # (Auto) 0.1, Basophils # (Auto) 0.0, Calcium Level 7.5 L, Aspartate Amino Transf (AST/SGOT) 16, Alanine Aminotransferase (ALT/SGPT) 19, Alkaline Phosphatase 81, Total Bilirubin 0.3, Total Protein 5.4 L, Albumin 1.1 L Microbiology Microbiology 11/08/18 Blood Culture - Preliminary, Resulted No growth after 24 hours . All specim... 11/08/18 Blood Culture - Preliminary, Resulted No growth after 24 hours . All specim... 11/06/18 Blood Culture - Preliminary, Resulted No Growth after 72 hours. All specime... 11/06/18 Blood Culture - Preliminary, Resulted No Growth after 72 hours. All specime... 11/05/18 Blood Culture - Preliminary, Resulted No Growth after 72 hours. All specime... 11/05/18 Blood Culture - Preliminary, Resulted No Growth after 72 hours. All specime... 11/05/18 Acid Fast Stain, Received Pending 11/05/18 Mycobacterial Culture, Received Pending 11/05/18 Fungal Smear, Received Pending 11/05/18 Fungal Culture, Received Pending 11/05/18 Gram Stain - Final, Complete 11/05/18 Anaerobic Culture - Final, Complete 11/05/18 Body Fluid Culture - Final, Complete 11/06/18 Respiratory Virus Panel (PCR) ([facility]) - Final, Complete 11/06/18 MRSA Screen - Final, Complete 11/08/18 Urine Culture - Final, Complete Discharge Medications Scheduled Dexamethasone (Dexamethasone) 4 Mg Tablet, 4 MG PO BID, (Reported) NEW RX, HAS NOT STARTED Folic Acid (Folic Acid) 1 Mg Tablet, 1 MG PO DAILY Furosemide (Furosemide) 40 Mg Tablet, 1 TAB PO DAILY Omeprazole (Omeprazole) 20 Mg Capsule.dr, 20 MG PO DAILY, (Reported) Spironolactone (Spironolactone) 25 Mg Tablet, 25 MG PO DAILY, (Reported) Scheduled PRN Albuterol Sulf (Albuterol Sulfate) 2.5 Mg/3 Ml Vial.neb, 1 INH INH Q4H PRN for SHORTNESS OF BREATH, (Reported) Albuterol Sulfate (Proair Respiclick) 108 Mcg/Act Aer, 1 INH INH Q4-6 PRN for SHORTNESS OF BREATH, (Reported) Lidocaine (Lidocaine) 5% Adh..patch, 1 PATCH TOP DAILY PRN for PAIN, (Reported) APPLY TO BACK AND/OR ABDOMEN PATCH REMOVED TODAY 1200 Melatonin (Melatonin) 3 Mg Tablet, 3 MG PO QPM PRN for INSOMNIA, (Reported) Oxycodone HCl/Acetaminophen (Oxycodone-Acetaminophen 5-325) 1 Each Tablet, 1 TAB PO QIDP PRN for pain Polyethylene Glycol 3350 (Miralax) 119 Gm Powder, 17 GM PO DAILY PRN for CONSTIPATION dilute in 8 ounces of water or juice Senna (Senna Lax) 8.6 Mg Tablet, 1 TAB PO BIDP PRN for CONSTIPATION Miscellaneous Medications Naloxone HCl (Narcan) 4 Mg [place], (Reported) Allergies Coded Allergies: No Known Allergies (Unverified , 12/17/16) Clinton Loza MD Nov 09, 2018 19:53
--- NOTE | 2018-11-09 23:27 | CR.PDOC ---
General Date of Consultation: Nov 09, 2018 Consultation Winston Wu is an 58 year old male with history of recurrent fevers and night sweats that have apparently been going on since February 2018, however he did not seek medical care until recently for this. He states he was diagnosed with IV lung adenocarcinoma in August 2018 and has undergone 20 cycles of radiation and was due to have a port placed for chemotherapy induction however he began to feel ill, he describes a 5 day history of extreme fatigue, fevers at home and chills, decreased appetite and SOB, he thus came to the ED. He was found to have a large pleural effusion on the right that was drained with a chest tube. He does describe feeling much better with his breathing since the chest tube was placed, and subsequently removed. He is also pancytopenic and continues to have fevers that seem to occur about every 36 hours with no identifiable source, his flu test, urine analysis and cultures, blood cultures x5, trichomonas, respiratory panels have all be negative to date. He states that he feels well right now and would like to go home. ALLERGIES: Please see below. HOME MEDICATIONS: Please see below. PAST MEDICAL HISTORY: prediabetic, assumed COPD PAST SURGICAL HISTORY: Biopsy of right supraclavicular node positive for high grade adenocarcinoma SOCIAL HISTORY: Smoker of .5 ppd for past 30+ years, quit a few months prior REVIEW OF SYSTEMS: CONSTITUTIONAL: admits to unintentionally losing weight, admits to fevers at home and night sweats since February 2018 HEENT: no change in vision CARDIOVASCULAR: no chest pain, admits to palpitations RESPIRATORY: no SOB now, chronic smokers cough with some light mucus production GENITOURINARY: no pain with urination MUSCULOSKELETAL: no new joint pain GASTROINTESTINAL: no n/v or diarrhea SKIN: no rashes PHYSICAL EXAMINATION: VITAL SIGNS: Please see below. GENERAL APPEARANCE: pleasant male, comfortable, NAD HEENT: NCAT, no oral lesions, EOMI RESPIRATORY: scattered end expiratory wheeze, otherwise diminished bases b/l, no rales or rhonchi CARDIOVASCULAR: normal s1 and s2, no murmurs, rubs or gallops ABDOMEN: soft, no hepatosplenomegaly, no pain to palpation, no distension, no rebound or guarding, nabsx4 EXTREMITIES: no cyanosis but some trace edema b/l LE from fluids received in hospital LABORATORY DATA: Please see below. ASSESSMENT/PLAN: This is an 58 year old male admitted for SOB due to pleural effusion found to have spiking reoccurring fevers. 1. Reoccurring episodic fevers -The patient is likely having reoccurring fevers from his cancer, however he could also have reactivation of a viral infection from his youth such as CMV, this could also represent an indolent fungal infection. As such we have sent for Beta-D glucan and Aspergillus testing as well as CMV and Hep C. We have also sent for HIV testing. 2. Tachycardia -The patient is having episodes of tachycardia, that do correlate to his fevers sometimes, however on exam today he was tachycardic to the 150's without a fever, would suggest EKG by primary team and addition of beta yesenia, he did have ECHO performed 11.05.18 that showed features of LV diastolic dysfunction and trace MR with trace TR and small pericardial effusion without evidence of cardiac tamponade. We also ordered TSH and T4. Vital Signs/I&O Vital Signs Date Time Temp Pulse Resp B/P (MAP) Pulse Ox O2 Delivery O2 Flow Rate FiO2 11/09/18 16:10 99.0 125 20 100/60 (73) 95 11/09/18 16:06 2.0 11/05/18 13:40 Room Air I&O- Last 24 Hours up to 6 AM 11/09/18 06:00 Intake Total 5350 ml Output Total 400 ml Balance 4950 ml Laboratory Data Labs 24H Laboratory Tests 2 11/09/18 05:25: Immature Granulocyte % (Auto) 1.5, White Blood Count 2.7L, Red Blood Count 3.24L, Hemoglobin 8.7L, Hematocrit 28.6L, Mean Corpuscular Volume 88.3, Mean Co rpuscular Hemoglobin 26.9L, Mean Corpuscular Hemoglobin Concent 30.4L, Red Cell Distribution Width 18.3H, Platelet Count 124L, Neutrophils (%) (Auto) 67.9H, Lymphocytes (%) (Auto) 21.5L, Monocytes (%) (Auto) 6.8H, Eosinophils (%) (Auto) 1.9, Basophils (%) (Auto) 0.4, Neutrophils # (Auto) 1.8, Lymphocytes # (Auto) 0.6L, Monocytes # (Auto) 0.2, Eosinophils # (Auto) 0.1, Basophils # (Auto) 0.0, Nucleated Red Blood Cells % (auto) 0.0, Anion Gap 5L, Glomerular Filtration Rate > 60.0, Blood Urea Nitrogen 5L, Creatinine 0.40L, Sodium Level 139, Potassium Level 3.5, Chloride Level 106, Carbon Dioxide Level 28, Calcium Level 7.5L, Aspartate Amino Transf (AST/SGOT) 16, Alanine Aminotransferase (ALT/SGPT) 19, Alkaline Phosphatase 81, Total Bilirubin 0.3, Total Protein 5.4L, Albumin 1.1L, Magnesium Level 1.5L, Albumin/Globulin Ratio 0.26L, Thyroid Stimulating Hormone (TSH) 0.362, Free Thyroxine 1.34 11/09/18 13:23: 11/09/18 17:37: CBC/BMP Laboratory Tests 11/09/18 05:25 Red Blood Count 3.24 L, Mean Corpuscular Volume 88.3, Mean Corpuscular Hemoglobin 26.9 L, Mean Corpuscular Hemoglobin Concent 30.4 L, Red Cell Distribution Width 18.3 H, Neutrophils (%) (Auto) 67.9 H, Lymphocytes (%) (Auto) 21.5 L, Monocytes (%) (Auto) 6.8 H, Eosinophils (%) (Auto) 1.9, Basophils (%) (Auto) 0.4, Neutrophils # (Auto) 1.8, Lymphocytes # (Auto) 0.6 L, Monocytes # (Auto) 0.2, Eosinophils # (Auto) 0.1, Basophils # (Auto) 0.0, Calcium Level 7.5 L, Aspartate Amino Transf (AST/SGOT) 16, Alanine Aminotransferase (ALT/SGPT) 19, Alkaline Phosphatase 81, Total Bilirubin 0.3, Total Protein 5.4 L, Albumin 1.1 L Microbiology Microbiology 11/08/18 Blood Culture - Preliminary, Resulted No growth after 24 hours . All specim... 11/08/18 Blood Culture - Preliminary, Resulted No growth after 24 hours . All specim... 11/06/18 Blood Culture - Preliminary, Resulted No Growth after 72 hours. All specime... 11/06/18 Blood Culture - Preliminary, Resulted No Growth after 72 hours. All specime... 11/05/18 Blood Culture - Preliminary, Resulted No Growth after 72 hours. All specime... 11/05/18 Blood Culture - Preliminary, Resulted No Growth after 72 hours. All specime... 11/05/18 Acid Fast Stain, Received Pending 11/05/18 Mycobacterial Culture, Received Pending 11/05/18 Fungal Smear, Received Pending 11/05/18 Fungal Culture, Received Pending 11/05/18 Gram Stain - Final, Complete 11/05/18 Anaerobic Culture - Final, Complete 11/05/18 Body Fluid Culture - Final, Complete 11/06/18 Respiratory Virus Panel (PCR) ([facility]) - Final, Complete 11/06/18 MRSA Screen - Final, Complete 11/08/18 Urine Culture - Final, Complete Allergies Coded Allergies: No Known Allergies (Unverified , 12/17/16) Home Medications Scheduled Albuterol Sulfate (Proair Respiclick) 108 Mcg/Act Aer, 108 MCG IN Q4-6HP, (Reported) Dexamethasone (Dexamethasone) 4 Mg Tablet, 4 MG PO BID, (Reported) Levofloxacin (Levaquin) 750 Mg Tablet, 1 TAB PO DAILY for 7 Days, #7 Magnesium Oxide (Magnesium Oxide) 400 Mg Tablet, 400 MG PO BID, #60 Omeprazole (Omeprazole) 20 Mg Cap, 1 CAP PO DAILY for 30 Days, #30 GME ATTESTATION GME ATTESTATION My faculty preceptor for this patient encounter was physically present during the encounter and was fully available. All aspects of the patient interview, examination, medical decision making process, and medical care plan development were reviewed and approved by the faculty preceptor. The faculty preceptor is aware and concurs with the plan as stated in the body of this note and will at test to such by his/her cosignature. GUIDO ADAM DO Nov 09, 2018 23:27
[2018-11-10 10:48] LABS: HIV 1&2 SCREEN CENTAUR NEGATIVE (NEGATIVE)
[2018-11-13 10:11] LABS: CMV QUANT DNA PCR (PLASMA) Positive < 200 IU/mL (Negative); FUNGITELL, SERUM 447 pg/mL (<80)
[2018-11-14 10:12] LABS: ASPERGILLUS GALACTOMANNAN AG 0.04 Index (0.00-0.49)
[2018-11-24] MEDS ORDERED: SPIR-10 PO (14:47)
[2018-11-24] MEDS ORDERED: FURO40TA2 PO (14:47)
[2018-12-11] MEDS ORDERED: OXYC1TAB23 PO (08:20)
[2018-12-15] MEDS ORDERED: ENOX100I3 SC (15:26)
== END 2018-11-09 20:21 | disposition home or self-care (01) | DRG 136 ==
LOC: M ED 13:39 → M ED INP 14:28 → M PCU 14:51
PROVIDERS: ADMIT Internal Medicine; ATTEND Family Medicine
PROC: 0W9930Z Drainage of Right Pleural Cavity with Drainage Device, Percutaneous Approach (ICD-10-PCS; principal; 2018-11-05)
DX: C34.90 Malignant neoplasm of unspecified part of unspecified bronchus or lung (principal); D61.818 Other pancytopenia; I31.3 Pericardial effusion (noninflammatory); I95.9 Hypotension, unspecified; J91.0 Malignant pleural effusion; D70.9 Neutropenia, unspecified; E87.1 Hypo-osmolality and hyponatremia; E83.42 Hypomagnesemia; E11.9 Type 2 diabetes mellitus without complications; Z87.891 Personal history of nicotine dependence; Z79.899 Other long term (current) drug therapy; J44.9 Chronic obstructive pulmonary disease, unspecified; E87.6 Hypokalemia

== ENCOUNTER → 2018-11-05 | Outpatient (CLI) | payer OTHER ==
[~2018-11-05] MED LIST changes: +CODE15TA PO; +CODE30TA PO; +FLUC100T PO; +FOLI1TAB11 PO; +ISOVUE-370 76% 100ML VIAL (Q9967) As Ordered ONE; +LEVA750T7 PO; +MAG400TA PO
--- NOTE | 2018-11-05 12:26 | REP ---
CT of the chest with IV contrast, CT pulmonary angiography: Comparison is 09/15/2018. There are no emboli in the pulmonary trunk or central pulmonary arteries. There are no emboli in the pulmonary lobe or segment branches. The the patient has known bulky mediastinal adenopathy. This has decreased in size. The compression of the right upper lobe, middle lobe and lower lobe pulmonary arteries, veins and bronchi has improved from the prior study. However, there is a large right pleural effusion that has significantly increased. There are scattered patchy subsegmental infiltrates in the left upper lobe and lower lobe as an interval change. There is a small left pleural effusion as an interval change. The right hilar adenopathy has decreased in size. In the upper abdomen the right adrenal nodule is unchanged. The left renal upper pole cyst is unchanged. Impression: There are no pulmonary emboli. There is significant reduction in the mediastinal and hilar adenopathy and the compression of the right lung pulmonary arteries, veins and bronchi has improved. Right pleural effusion has significantly increased in size and is now large. There is a small left pleural effusion as an interval change. There are scattered subsegmental infiltrates in the left upper lobe and lower lobe as an interval change. Electronically Signed by Antione Zeng MD 11/05/2018 12:17 P
--- NOTE | 2018-11-05 14:32 | ECHO ---
DATE OF PROCEDURE: 11/05/2018 DATE OF : 1960 REFERRING PROVIDER: Dr. Adilia Taylor MEDICATION: Chemotherapy drug monitoring. 2-D MEASUREMENTS: LV: 5.3 cm LVPW: 0.9 cm LA: 3.1 cm Aorta: 3.0 cm DOPPLER MEASUREMENTS: Peak velocity across the aortic valve: 1.1 m/s Mitral E: 0.3 with ratio E-to-A 0.8 Maximum tricuspid valve velocity: 2.1 m/s 2-D COMMENTS: 1. Normal left ventricular size and wall thickness but with a moderately depressed global left ventricular systolic function. The estimated left ventricular systolic ejection fraction is 35-40%. There was global hypokinesis. 2. Normal left atrium. The right atrium appeared to be normal in size as well as the right ventricle. 3. The atrial septum appeared to be normal without evidence of defect or shunt. 4. Normal aortic root. 5. Small pericardial effusion, no evidence of cardiac tamponade. 6. Mildly calcified aortic valve with normal leaflet excursion. Normal mitral valve, tricuspid valve an d pulmonic valve. The proximal pulmonary artery branches were not well visualized. 7. Subjectively, the inferior vena cava/IVC appear to be normal. DOPPLER: It detects trace mitral regurgitation, trace tricuspid regurgitation, and trace pulmonic regurgitation. The calculated pulmonary artery systolic pressure was normal, less than 30 mmHg. There some features of left ventricular diastolic dysfunction manifested by impaired relaxation. IMPRESSION: 1. Moderate global left ventricular systolic dysfunction with global hypokinesis. There were some features of left ventricular diastolic dysfunction, impaired relaxation. 2. Aortic valve sclerosis with trace aortic regurgitation but no aortic stenosis. 3. Trace mitral regurgitation. 4. Trace tricuspid regurgitation with a normal calculated pulmonary artery systolic pressure. 4. As mentioned above, trace pulmonic regurgitation also detected. 5. A small pericardial effusion was noted. No evidence of cardiac tamponade. 6. This was compared with prior and most recent study done on 09/15/2008, left ventricular systolic function appeared to be now lower. There is no significant synergy in his underlying valvular heart disease and pericardial effusion.
== END ==
LOC: M RAD 11:15
PROVIDERS: ATTEND Internal Medicine Medical Oncology
DX: C34.90 Malignant neoplasm of unspecified part of unspecified bronchus or lung (principal); J91.8 Pleural effusion in other conditions classified elsewhere; R06.02 Shortness of breath
CPT/HCPCS: 71275; 93306; Q9967

== ENCOUNTER → 2018-11-17 | Outpatient (CLI) | payer OTHER ==
[~2018-11-17] MED LIST changes: +LEVA750T7 PO; +MAG400TA PO; +PROA1AER2 IN; -PROA1AER2 INH
--- NOTE | 2018-11-17 13:47 | REP ---
Bilateral lower extremity Duplex Doppler venous ultrasound: Real time compression and duplex Doppler interrogation of the bilateral lower extremity deep venous system is performed. Bilaterally, the common femoral, superficial femoral and popliteal veins are fully compressible with transducer pressure and demonstrate normal spontaneous and phasic flow, without evidence of deep venous thrombosis. Impression: No evidence of deep venous thrombosis of the bilateral lower extremity femoral popliteal venous system. Electronically Signed by Antione Huertas MD 11/17/2018 01:38 P
== END ==
LOC: M RAD 12:32
PROVIDERS: ATTEND Nurse Practitioner Family
DX: R60.9 Edema, unspecified (principal)

== ENCOUNTER → 2018-11-17 | Outpatient (REF) | payer OTHER ==
[2018-11-17 12:04] LABS: BASO % 0.3 % (0.0-1.0); HEMATOCRIT 30.7 % (42.0-52.0); HEMOGLOBIN 8.9 g/dl (13.5-17.5); LYMPH # 0.3 10^3/uL (1.5-4.5); LYMPH % 3.7 % (24.0-44.0); MEAN CORPUSCULAR HEMOGLOBIN 26.9 pg (27.0-33.0); MEAN CORPUSCULAR VOLUME 92.7 fl (80.0-96.0); MONO # 0.7 10^3/uL (0.0-0.8); MONO % 8.3 % (0.0-5.0); NEUTROPHILS # 7.6 10^3/uL (1.8-7.7); NEUTROPHILS % 85.7 % (36.0-66.0); PLATELET COUNT, AUTOMATED 145 10^3/uL (150-450); RED BLOOD COUNT 3.31 10^6/uL (4.30-6.10); WHITE BLOOD COUNT 8.9 10^3/uL (4.0-10.0)
[2018-11-17 12:43] LABS: ALBUMIN 1.4 GM/DL (3.2-5.2); ALT/SGPT 23 U/L (12-78); BILIRUBIN,TOTAL 0.3 MG/DL (0.2-1.0); BLOOD UREA NITROGEN 12 MG/DL (7-18); CALCIUM LEVEL 7.7 MG/DL (8.5-10.1); CARBON DIOXIDE LEVEL 32 MEQ/L (21-32); CHLORIDE LEVEL 104 MEQ/L (98-107); CREATININE FOR GFR 0.43 MG/DL (0.70-1.30); GLOMERULAR FILTRATION RATE > 60.0 (>56); GLUCOSE, FASTING 237 MG/DL (70-100); NT-PRO BNP 945 PG/ML (<125); POTASSIUM SERUM 3.9 MEQ/L (3.5-5.1); SODIUM LEVEL 141 MEQ/L (136-145)
== END ==
LOC: M SFHCPLAZ 10:42
PROVIDERS: ATTEND Nurse Practitioner Family
DX: R60.9 Edema, unspecified (principal); D61.818 Other pancytopenia

== ENCOUNTER → 2018-11-22 | Outpatient (REF) | payer OTHER ==
[~2018-11-22] MED LIST changes: +FURO40TA2 PO; +SPIR-10 PO
[2018-11-22 12:24] LABS: BASO % 0.2 % (0.0-1.0); EOS % 0.4 % (0.0-3.0); HEMATOCRIT 32.4 % (42.0-52.0); HEMOGLOBIN 9.6 g/dl (13.5-17.5); LYMPH # 0.6 10^3/uL (1.5-4.5); LYMPH % 6.7 % (24.0-44.0); MEAN CORPUSCULAR HEMOGLOBIN 27.2 pg (27.0-33.0); MEAN CORPUSCULAR HGB CONC 29.6 g/dl (32.0-36.5); MEAN CORPUSCULAR VOLUME 91.8 fl (80.0-96.0); MONO % 12.3 % (0.0-5.0); NEUTROPHILS # 6.6 10^3/uL (1.8-7.7); NEUTROPHILS % 78.8 % (36.0-66.0); PLATELET COUNT, AUTOMATED 179 10^3/uL (150-450); RED BLOOD COUNT 3.53 10^6/uL (4.30-6.10); WHITE BLOOD COUNT 8.3 10^3/uL (4.0-10.0)
[2018-11-22 13:06] LABS: ALBUMIN 1.3 GM/DL (3.2-5.2); ALT/SGPT 13 U/L (12-78); BILIRUBIN,TOTAL 0.5 MG/DL (0.2-1.0); BLOOD UREA NITROGEN 14 MG/DL (7-18); CALCIUM LEVEL 7.3 MG/DL (8.5-10.1); CARBON DIOXIDE LEVEL 29 MEQ/L (21-32); CHLORIDE LEVEL 96 MEQ/L (98-107); CREATININE FOR GFR 0.49 MG/DL (0.70-1.30); GLOMERULAR FILTRATION RATE > 60.0 (>56); GLUCOSE, FASTING 98 MG/DL (70-100); NT-PRO BNP 569 PG/ML (<125); POTASSIUM SERUM 3.5 MEQ/L (3.5-5.1); SODIUM LEVEL 134 MEQ/L (136-145); TOTAL PROTEIN 6.3 GM/DL (6.4-8.2)
[2018-11-22 17:21] LABS: HEMOGLOBIN A1c 8.9 %
[2018-11-23 16:52] LABS: VITAMIN B12 LEVEL 606 PG/ML (247-911)
[2018-11-23 16:59] LABS: FOLATE 9.9 NG/ML (>5.4)
== END ==
LOC: M SFHCPLAZ 08:54
PROVIDERS: ATTEND Nurse Practitioner Family
DX: R60.9 Edema, unspecified (principal); D61.818 Other pancytopenia

== ENCOUNTER → 2018-11-24 | Outpatient (CLI) | payer OTHER ==
[~2018-11-24] MED LIST changes: +ALBU83IN INH; +BASA100I SC; +BUPIVACAINE HCL 0.5% 10 ML VIAL As Ordered ONE; +DEME300T2 PO; +ENOX100I3 SC; +FURO20TA2 PO; +LIDO1PAD TOP; +LIDOCAINE 2% MDV 20 ML VIAL As Ordered ONE; +MELA3TAB41 PO; +METF500T13 PO; +MIRA3350 PO; +NARC1SPR; +OMEP-218 PO; -OMEP20CA3 PO; +OMEP20CA4 PO; +OXYC15TA76 PO; +OXYC1TAB23 PO; -PROA1AER2 IN; +PROA1AER2 INH; +SENN18TA PO; +ceFAZolin 1GM INJ (J0690 PER 500MG) As Ordered ONE
== END ==
LOC: M IRPRO 09:00
PROVIDERS: ATTEND Internal Medicine Hematology & Oncology
DX: C34.91 Malignant neoplasm of unspecified part of right bronchus or lung (principal); Z53.9 Procedure and treatment not carried out, unspecified reason

== ENCOUNTER → 2018-11-29 | Outpatient (CLI) | payer OTHER ==
[~2018-11-29] MED LIST changes: -BUPIVACAINE HCL 0.5% 10 ML VIAL As Ordered ONE; +GASTROGRAFIN SOLUTION 30ML (Q9963) As Ordered ONE; +ISOVUE-370 76% 100ML VIAL (Q9967) As Ordered ONE; -LIDOCAINE 2% MDV 20 ML VIAL As Ordered ONE; +OMEP20CA3 PO; -OMEP20CA4 PO; -ceFAZolin 1GM INJ (J0690 PER 500MG) As Ordered ONE
--- NOTE | 2018-11-29 14:02 | REP ---
CT Head without and with contrast HISTORY: Lung carcinoma CONTRAST: Isovue 370 100 ml COMPARISON: 09/15/2018 There is no intraparenchymal hemorrhage, acute infarct, mass or midline shift. There is no abnormal enhancement. The ventricular system is normal in appearance. The cortical sulci are dilated consistent with minimal volume loss. There is no extra cerebral collection. The visualized sinuses are clear. Impression: 1. There is no intracranial lesion. 2. Minimal volume loss. Electronically Signed by Dae Dang MD 11/29/2018 01:52 P
--- NOTE | 2018-11-30 02:30 | REP ---
Clinical: Metastatic disease. Non-small cell lung cancer. Technique: PA and lateral. Comparison: 11/09/2018. Findings: Scattered bilateral pleuroparenchymal changes (right greater than left) are similar to prior examination and suggest chronic changes as well as superimposed atelectasis/infiltrates and right pleural effusion. Findings appear relatively similar to prior examination although moderate right pleural effusion has increased. Impression: Diffuse bilateral pleuroparenchymal changes including increased moderate right pleural effusion and suspected scattered infiltrate/atelectasis. Electronically Signed by Jose Dsouza MD 11/30/2018 02:21 A
--- NOTE | 2018-11-30 08:24 | REP ---
Clinical: Non-small cell lung cancer. Technique: Axial contrast enhanced images from the lung bases to the pubic symphysis using oral (per protocol) and 100 ml Isovue 370 intravenous contrast material with precontrast and delayed images of the abdomen as well as coronal and sagittal re-formations. Comparison 09/15/2018. Findings: Lung bases demonstrate a small to moderate pericardial effusion along with right pericardial adenopathy including lymph nodes measuring up to 1.6 x 2.6 cm maximal diameter as well as large right and small/moderate left pleural effusions with right basilar atelectasis and peribronchovascular interstitial prominence. Increased significant upper abdominal/epigastric adenopathy is appreciated including adenopathy in the armani hepatis, gastrohepatic ligament and adjacent to the celiac axis as well as in the anterior retroperitoneal space anterior to and partially surrounding the abdominal aorta extending below the level of the renal arteries. Individual lymph nodes appear to measure up to roughly 2.3 cm maximal diameter. The right psoas and iliopsoas muscle is significantly enlarged and demonstrates heterogeneous enhancement and scattered calcifications likely representing hematoma and/or metastatic involvement (largest portion of the right psoas measures 6.7 x 5.7 cm diameter). Generalized heterogeneity through the mesentery as well as small amount of ascites is appreciated extending into the posterior deep pelvis. Liver, spleen, pancreas, gallbladder, and left adrenal gland appear normal. Heterogeneous enhancing right adrenal metastatic focus measures 2.2 cm maximal diameter (previously measuring approximately 1.5 cm diameter). The enteric system is without obstruction. No free air. Pelvis demonstrates normal bladder and enlarged prostate gland. Osseous structures demonstrate degenerative changes without focal osseous abnormality. Abdominal aorta appears relatively normal. Appearance to the IVC and the bilateral iliac veins is nonspecific although thrombus cannot definitively be excluded. Impression: 1. Lung bases demonstrate pleural effusions (right greater than left), pericardial effusion, right pericardial adenopathy, and peribronchovascular interstitial prominence all of which is consistent with neoplasm/metastatic disease. 2. Upper abdominal and upper to mid retroperitoneal adenopathy demonstrate relatively new findings and consistent with metastatic disease. 3. Enlarged metastatic focus in the right adrenal gland. 4. Enlarged heterogeneous appearance to the right psoas and iliacus representing hematoma and/or neoplastic/metastatic invasion. 5. Further details above. Electronically Signed by Jose Dsouza MD 11/30/2018 08:16 A
== END ==
LOC: M RAD 11:19
PROVIDERS: ATTEND Internal Medicine Medical Oncology
DX: J94.9 Pleural condition, unspecified (principal); R59.0 Localized enlarged lymph nodes; I31.3 Pericardial effusion (noninflammatory); Z85.118 Personal history of other malignant neoplasm of bronchus and lung
CPT/HCPCS: 70470; 71046; 74178; Q9963; Q9967

== ENCOUNTER 2018-11-30 14:10 | Inpatient (IN) | payer OTHER ==
[~2018-11-30] VITALS: Ht 182.9 cm; Wt 71.5 kg
[~2018-11-30 14:10] MED LIST changes: -ALBU83IN INH; -BASA100I SC; -DEME300T2 PO; -ENOX100I3 SC; -FURO20TA2 PO; -GASTROGRAFIN SOLUTION 30ML (Q9963) As Ordered ONE; -ISOVUE-370 76% 100ML VIAL (Q9967) As Ordered ONE; -LIDO1PAD TOP; -MELA3TAB41 PO; -METF500T13 PO; -MIRA3350 PO; -NARC1SPR; -OMEP-218 PO; -OXYC15TA76 PO; -OXYC1TAB23 PO; -SENN18TA PO
[2018-11-30] MEDS ORDERED: ALBU83IN INH (14:27)
[2018-11-30] MEDS ORDERED: BASA100I SC (14:27)
[2018-11-30 14:57] LABS: BASO % 0.2 % (0.0-1.0); EOS % 0.1 % (0.0-3.0); HEMATOCRIT 30.8 % (42.0-52.0); LYMPH # 0.3 10^3/uL (1.5-4.5); LYMPH % 3.3 % (24.0-44.0); MEAN CORPUSCULAR HEMOGLOBIN 27.4 pg (27.0-33.0); MEAN CORPUSCULAR HGB CONC 29.2 g/dl (32.0-36.5); MEAN CORPUSCULAR VOLUME 93.6 fl (80.0-96.0); MONO % 9.5 % (0.0-5.0); NEUTROPHILS # 8.5 10^3/uL (1.8-7.7); NEUTROPHILS % 85.5 % (36.0-66.0); PLATELET COUNT, AUTOMATED 210 10^3/uL (150-450); RED BLOOD COUNT 3.29 10^6/uL (4.30-6.10)
[2018-11-30] MEDS ORDERED: IPRATROPIUM 0.5MG/ALBUTEROL 2.5MG INH SOL UD 3ML (DUONEB)(J7620) NEB ONE (15:00)
[2018-11-30] MEDS ORDERED: MORPHINE 2 MG/ML 1ML SYRINGE (J2270) IV ONE (15:15)
[2018-11-30 15:28] LABS: BLOOD UREA NITROGEN 15 MG/DL (7-18); CALCIUM LEVEL 7.7 MG/DL (8.5-10.1); CARBON DIOXIDE LEVEL 32 MEQ/L (21-32); CHLORIDE LEVEL 100 MEQ/L (98-107); CPK CREATINE PHOSPHOKINASE 21 U/L (39-308); CREATININE FOR GFR 0.42 MG/DL (0.70-1.30); GLOMERULAR FILTRATION RATE > 60.0 (>56); GLUCOSE, FASTING 125 MG/DL (70-100); MB/CK RELATIVE INDEX 8.57 (< OR =4); POTASSIUM SERUM 4.2 MEQ/L (3.5-5.1); SODIUM LEVEL 136 MEQ/L (136-145); TROPONIN I 0.19 NG/ML (< 0.10)
[2018-11-30] MEDS: IPRATROPIUM 0.5MG/ALBUTEROL 2.5MG INH SOL UD 3ML (DUONEB)(J7620) NEB PRN ×2 (16:22→21:54)
--- NOTE | 2018-11-30 16:56 | REP ---
The CT of the chest without IV contrast for dyspnea and cough for: Comparison is 11/05/2018. There is a large right pleural effusion that has significantly increased in size. There is a small left pleural effusion that has also increased in size. There is a pericardial effusion measuring up to 7 mm depth anteriorly. This measured 4 mm previously. The the patient has a known right hilar/mediastinal mass. The compression of the right hilar/perihilar bronchi is a similar to the prior study but has improved compared to 09/15/2018. There is a left paramediastinal infiltrate extending into the left upper lobe and left lower lobe as an interval change. There are patchy subsegmental right upper lobe and right middle lobe infiltrates as an interval change. There is compression atelectasis of the right lower lobe from the large right pleural effusion. In the upper abdomen the right adrenal nodule left renal upper pole cyst are unchanged. Impression: The large right pleural effusion has increased in size. The small left pleural effusion has also increased in size. There is a pericardial effusion that has increased in size. There is a new left paramediastinal infiltrate extending into the left upper lobe and left lower lobe. There are new subsegmental patchy infiltrates in the right upper lobe and right middle lobe. There is compression atelectasis of the right lower lobe from the large right pleural effusion. Electronically Signed by Antione Zeng MD 11/30/2018 04:48 P
[2018-11-30] MEDS ORDERED: OMEP-218 PO (17:07)
[2018-11-30] MEDS ORDERED: FURO20TA2 PO (17:07)
[2018-11-30] MEDS ORDERED: OXYC1TAB23 PO (17:10)
[2018-11-30] MEDS ORDERED: MELA3TAB41 PO (17:10)
[2018-11-30] MEDS ORDERED: LIDO1PAD TOP (17:10)
[2018-11-30] MEDS ORDERED: GLUCOSE 4 GM CHEW TABLET PO PRN (17:15)
[2018-11-30] MEDS ORDERED: GLUCAGON FOR INJ 1 MG VIAL (J1610) SC PRN (17:15)
[2018-11-30] MEDS ORDERED: DEXTROSE 50% 50 ML SYRINGE IV PRN (17:15)
--- NOTE | 2018-11-30 17:38 | IPNPDOC ---
Date Seen The patient was seen on 11/30/18. Progress Note Addendum to H&P: Recurrent Malignant right pleural effusion / Stage 4 adenoca of lung -Per Dr. [facility], [facility]: chest tube placement and pleurex catheter per Thoracic surgery, Dr. Qiu. If still tachycardic and hypoxic despite resolution of pleural effusion, rule out PE. Once stable, inpatient chemotherapy. A-FIB/CHADSVASC A-FIB History Current/History of A-Fib/PAF?: No Current Oral Anticoagulant The: No VS, I&O, 24H, Fishbone Vital Signs/I&O Vital Signs Date Time Temp Pulse Resp B/P (MAP) Pulse Ox O2 Delivery O2 Flow Rate FiO2 11/30/18 16:15 133 18 100/66 90 2.0 11/30/18 14:16 99.7 Laboratory Data 24H LABS Laboratory Tests 2 11/30/18 14:43: Immature Granulocyte % (Auto) 1.4, White Blood Count 10.0, Red Blood Count 3.29L, Hemoglobin 9.0L, Hematocrit 30.8L, Mean Corpuscular Volume 93.6, Mean Corpuscular Hemoglobin 27.4, Mean Corpuscular Hemoglobin Concent 29.2L, Red Cell Distribution Width 19.8H, Platelet Count 210, Neutrophils (%) (Auto) 85.5H, Lymphocytes (%) (Auto) 3.3L, Monocytes (%) (Auto) 9.5H, Eosinophils (%) (Auto) 0.1, Basophils (%) (Auto) 0.2, Neutrophils # (Auto) 8.5H, Lymphocytes # (Auto) 0.3L, Monocytes # (Auto) 1.0H, Eosinophils # (Auto) 0.0, Basophils # (Auto) 0.0, Nucleated Red Blood Cells % (auto) 0.0, Anion Gap 4L, Glomerular Filtration Rate > 60.0, Blood Urea Nitrogen 15, Creatinine 0.42L, Sodium Level 136, Potassium Level 4.2, Chloride Level 100, Carbon Dioxide Level 32, Calcium Level 7.7L, Total Creatine Kinase 21L, Creatine Kinase MB 2.0, Creatine Kinase MB Relative Index 8.57H, Troponin I 0.19H CBC/BMP Laboratory Tests 11/30/18 14:43 Red Blood Count 3.29 L, Mean Corpuscular Volume 93.6, Mean Corpuscular Hemoglobin 27.4, Mean Corpuscular Hemoglobin Concent 29.2 L, Red Cell Distribution Width 19.8 H, Neutrophils (%) (Auto) 85.5 H, Lymphocytes (%) (Auto) 3.3 L, Monocytes (%) (Auto) 9.5 H, Eosinophils (%) (Auto) 0.1, Basophils (%) (Auto) 0.2, Neutrophils # (Auto) 8.5 H, Lymphocytes # (Auto) 0.3 L, Monocytes # (Auto) 1.0 H, Eosinophils # (Auto) 0.0, Basophils # (Auto) 0.0, Calcium Level 7.7 L, Total Creatine Kinase 21 L Microbiology Microbiology 11/30/18 Blood Culture, Received Pending 11/30/18 Blood Culture, Received Pending LISSETH LEE MD November 30, 2018 17:38
[2018-11-30 17:43] LABS: NT-PRO BNP 1136 PG/ML (<125)
[2018-11-30] MEDS ORDERED: IPRATROPIUM 0.5MG/ALBUTEROL 2.5MG INH SOL UD 3ML (DUONEB)(J7620) NEB PRN (18:00)
--- NOTE | 2018-11-30 18:14 | HPEPDOC ---
General Date of Admission November 30, 2018 at 16:50 Chief Complaint The patient is a 58-year-old male admitted with a reason for visit of Recurrent Right Pleural Effusion. Source: Patient, Family Exam Limitations: Clinical conditions Timing/Duration: Day(s) (5) History of Present Illness Pt is a 58 yo former smoker with Stage [id number] advanced right lung a denocarcinoma that presents to [facility] due to progressively worsening dyspnea that started last Thursday. Alleviating factor of the dyspnea including neb treatment, and aggravating factor includes talking and movement. He also reports a chronic non-productive cough. He also reported a left upper quadrant abdominal pain that is intermittent sharp 02/26; reports the pain radiates to his back, and aggravates when he takes a deep breath.Pt reported that he is s/p radiation, and he will start chemo treatment this . Pt reported that he usually has a temp 100.3-100.4, and HR that ranges from 130-150. However, pt denies any fever, chills, lightheadedness, dizziness, nausea, vomiting. He reported leg edema since hospital admission last time; he thinks it's due to over-hydration on prior hospital visit thus would prefer not to have IV fluid unless necessary like hypotension; stated that his BP usually runs low in the 90s/60s Pt is FULL CODE Home Medications Scheduled Dexamethasone (Dexamethasone) 4 Mg Tablet, 4 MG PO BID, (Reported) NEW RX, HAS NOT STARTED Furosemide (Furosemide) 20 Mg Tablet, 20 MG PO DAILY, (Reported) Insulin Glargine,Hum.rec.anlog (Basaglar Kwikpen U-100) 100 Unit/1 Ml Insuln.pen, 10 UNITS SC ASDIRECTED, (Reported) NEW MEDICATION, HAS NOT STARTED Omeprazole (Omeprazole) 20 Mg Capsule.dr, 20 MG PO DAILY, (Reported) Spironolactone (Spironolactone) 25 Mg Tablet, 25 MG PO DAILY, (Reported) Scheduled PRN Albuterol Sulf (Albuterol Sulfate) 2.5 Mg/3 Ml Vial.neb, 1 INH INH Q4H PRN for SHORTNESS OF BREATH, (Reported) Albuterol Sulfate (Proair Respiclick) 108 Mcg/Act Aer, 1 INH INH Q4-6 PRN for SHORTNESS OF BREATH, (Reported) Lidocaine (Lidocaine) 5% Adh..patch, 1 PATCH TOP DAILY PRN for PAIN, (Reported) APPLY TO BACK AND/OR ABDOMEN PATCH REMOVED TODAY 1200 Melatonin (Melatonin) 3 Mg Tablet, 3 MG PO QPM PRN for INSOMNIA, (Reported) Oxycodone HCl/Acetaminophen (Oxycodone-Acetaminophen 5-325) 1 Each Tablet, 1 TAB PO QID PRN for pain, (Reported) Allergies Coded Allergies: No Known Allergies (Unverified , 12/17/16) Past Medical History Medical History Type 2 DM Tobacco dependence-40 pk year hx, quit smoking 100 days ago COPD Mild diastolic CHF Surgical History FNA lung biopsy, aug 2018 Family History Unknown, pt is adopted Social History * Smoker: former Smoker Alcohol: Denies Pt lives at home A-FIB/CHADSVASC A-FIB History Current/History of A-Fib/PAF?: No Review of Systems Constitutional: Denies: Chills, Fever Pulmonary: Reports: Dyspnea, Cough, Pleuritic Chest Pain Cardiovascular: Denies: Chest Pain, Palpitations, Lt Headedness Gastrointestinal: Reports: Abdominal Pain (LUQ); Denies: Nausea, Vomiting, Diarrhea, Constipation Musculoskeletal: Reports: Other Symptoms (b/l leg edema) Physical Examination General Exam: Positive: Alert, Cooperative, Mild Distress, Moderate Distress Eye Exam: Positive: Conjunctiva & lids normal; Negative: Sclera icteric ENT Exam: Positive: Atraumatic, Mucous membr. moist/pink Neck Exam: Positive: Supple Chest Exam: Positive: Rhonchi (on right upper lobe and middle lobe region), Wheezing (on left upper lobe region), Diminished (diminshed lung sounds at base b/l), Other (increased accessory muscle use in neck; no obvious subcostal retraction); Negative: Clear to auscultation, Normal air movement Heart Exam: Positive: Tachycardic, Regular Rhythm, Normal S1, Normal S2; Negative: Murmurs Abdomen Exam: Positive: Normal bowel sounds, Soft; Negative: Tenderness Extremity Exam: Positive: Edema (3+ pitting edema in right ankle; 2+ pitting edema in left ankle), Normal pulses Neuro Exam: Positive: Sensation Intact, Other (speech intermittently disrupte by SOB); Negative: Strength at 5/5 X4 ext (Limited by SOB) Psych Exam: Positive: Mental status NL, Anxiety, Memory Intact, Oriented x 3 Vital Signs Vital Signs Date Time Temp Pulse Resp B/P (MAP) Pulse Ox O2 Delivery O2 Flow Rate FiO2 11/30/18 16:15 133 18 100/66 90 2.0 11/30/18 14:16 99.7 Laboratory Data Labs 24H Laboratory Tests 2 11/30/18 14:43: Immature Granulocyte % (Auto) 1.4, White Blood Count 10.0, Red Blood Count 3.29L, Hemoglobin 9.0L, Hematocrit 30.8L, Mean Corpuscular Volume 93.6, Mean Corpuscular Hemoglobin 27.4, Mean Corpuscular Hemoglobin Concent 29.2L, Red Cell Distribution Width 19.8H, Platelet Count 210, Neutrophils (%) (Auto) 85.5H, Lymphocytes (%) (Auto) 3.3L, Monocytes (%) (Auto) 9.5H, Eosinophils (%) (Auto) 0.1, Basophils (%) (Auto) 0.2, Neutrophils # (Auto) 8.5H, Lymphocytes # (Auto) 0.3L, Monocytes # (Auto) 1.0H, Eosinophils # (Auto) 0.0, Basophils # (Auto) 0.0, Nucleated Red Blood Cells % (auto) 0.0, Anion Gap 4L, Glomerular Filtration Rate > 60.0, Blood Urea Nitrogen 15, Creatinine 0.42L, Sodium Level 136, Potassium Level 4.2, Chloride Level 100, Carbon Dioxide Level 32, Calcium Level 7.7L, Total Creatine Kinase 21L, Creatine Kinase MB 2.0, Creatine Kinase MB Relative Index 8.57H, Troponin I 0.19H CBC/BMP Laboratory Tests 11/30/18 14:43 Red Blood Count 3.29 L, Mean Corpuscular Volume 93.6, Mean Corpuscular Hemo globin 27.4, Mean Corpuscular Hemoglobin Concent 29.2 L, Red Cell Distribution Width 19.8 H, Neutrophils (%) (Auto) 85.5 H, Lymphocytes (%) (Auto) 3.3 L, Monocytes (%) (Auto) 9.5 H, Eosinophils (%) (Auto) 0.1, Basophils (%) (Auto) 0.2, Neutrophils # (Auto) 8.5 H, Lymphocytes # (Auto) 0.3 L, Monocytes # (Auto) 1.0 H, Eosinophils # (Auto) 0.0, Basophils # (Auto) 0.0, Calcium Level 7.7 L, Total Creatine Kinase 21 L Microbiology Microbiology 11/30/18 Blood Culture, Received Pending 11/30/18 Blood Culture, Received Pending Problems (1) Malignant pleural effusion Problem Text: Dyspnea; pt currently sat around 90% on 2L NC. Large right pleural effusion and small left pleural effusion shown on CT; both increased in size. Dr. Qiu will be inserting chest tube placement; fluid cytology and analysis with pleurex cath in place for output measurement. -PERCOCET prn PAIN -If pt still tachy and hypoxic once pleural effusion resolved/ ro PE. -Pt reported LUQ abdominal pain which is likely 2/2 pleuritis from pleural effusion; liver panel ordered to r/o GI abnormality (2) Adenocarcinoma of lung, stage 4 Problem Text: Primary lung adenocarcinoma. S/p pallative radiation as it threatened SVC. No obvious pleortha noted. Pt reported that he was scheduled to start chemo this ; likely start chemo after the chest tube (3) Elevated troponin Problem Text: elevated trop 0.19>0.02 likely 2/2 to pleural effusion; cannot r/o ACS at this point but pt denies chest pain only pleuritic chest pain during inspiration at substernal region. Repeat cardiac marker Q8H. (4) Pericardial effusion Problem Text: Likely 2/2 malignancy. dyspnea with non-productive cough. Pt reported lower extremities edema since d/c home last hospital visit but reported edema has been improving; cont home med Lasix and Spironolactone. (5) COPD (chronic obstructive pulmonary disease) Problem Text: Prior PFT showed obstructive pattern. Neb treatment and maintain ox 88-92%. Cont home steroid and cont to monitor the pt (6) Type 2 diabetes mellitus Problem Text: Pt reported that he was prescribed insulin but not using it at home. FSBS ACHS and sliding scale insulin; hypoglycemia protocol Plan / VTE VTE Prophylaxis Ordered?: Yes (heparin SQ) GME ATTESTATION GME ATTESTATION My faculty preceptor for this patient encounter was physically present during the encounter and was fully available. All aspects of the patient interview, examination, medical decision making process, and medical care plan development were reviewed and approved by the faculty preceptor. The faculty preceptor is aware and concurs with the plan as stated in the body of this note and will attest to such by his/her cosignature. PAN PIPER DO November 30, 2018 18:14
[2018-11-30 18:30] LABS: ALBUMIN 1.4 GM/DL (3.2-5.2); ALT/SGPT 12 U/L (12-78); BILIRUBIN,DIRECT 0.2 MG/DL (0.0-0.2); BILIRUBIN,TOTAL 0.3 MG/DL (0.2-1.0); TOTAL PROTEIN 6.3 GM/DL (6.4-8.2)
[2018-11-30 18:35] VITALS: BP 112/76
[2018-11-30] MEDS: ACETAMINOPHEN 500 MG TAB PO PRN (19:59)
[2018-11-30 20:00] VITALS: BP 96/69
[2018-11-30] MEDS: HumaLOG INSULIN (NovoLOG) PER UNIT SC SCH ×2 (20:00→21:00)
[2018-11-30] MEDS: HEPARIN SOD (PORCINE) 5000 UNITS/ML VIAL SQ SCH (21:26)
[2018-11-30] MEDS: PERCOCET 5MG/325MG TAB PO PRN (22:36)
[2018-11-30 23:59] VITALS: BP 105/77
[2018-12-01] VITALS (26 sets, daily range): BP systolic 89–112; BP diastolic 58–79
[2018-12-01 02:25] LABS: MB/CK RELATIVE INDEX 6.88 (< OR =4); TROPONIN I 0.18 NG/ML (< 0.10)
[2018-12-01] MEDS: PERCOCET 5MG/325MG TAB PO PRN ×5 (04:10→22:29)
[2018-12-01] MEDS: IPRATROPIUM 0.5MG/ALBUTEROL 2.5MG INH SOL UD 3ML (DUONEB)(J7620) NEB PRN ×2 (04:14→20:51)
[2018-12-01] MEDS: HEPARIN SOD (PORCINE) 5000 UNITS/ML VIAL SQ SCH ×3 (06:35→22:26)
[2018-12-01 07:10] LABS: HEMATOCRIT 29.4 % (42.0-52.0); HEMOGLOBIN 8.6 g/dl (13.5-17.5); MEAN CORPUSCULAR HEMOGLOBIN 27.4 pg (27.0-33.0); MEAN CORPUSCULAR HGB CONC 29.3 g/dl (32.0-36.5); MEAN CORPUSCULAR VOLUME 93.6 fl (80.0-96.0); PLATELET COUNT, AUTOMATED 209 10^3/uL (150-450); RED BLOOD COUNT 3.14 10^6/uL (4.30-6.10); WHITE BLOOD COUNT 9.7 10^3/uL (4.0-10.0)
[2018-12-01] MEDS: HumaLOG INSULIN (NovoLOG) PER UNIT SC SCH ×4 (07:30→20:34)
[2018-12-01 07:49] LABS: BLOOD UREA NITROGEN 13 MG/DL (7-18); CALCIUM LEVEL 7.9 MG/DL (8.5-10.1); CARBON DIOXIDE LEVEL 31 MEQ/L (21-32); CHLORIDE LEVEL 100 MEQ/L (98-107); CPK CREATINE PHOSPHOKINASE 16 U/L (39-308); CREATININE FOR GFR 0.41 MG/DL (0.70-1.30); GLOMERULAR FILTRATION RATE > 60.0 (>56); GLUCOSE, FASTING 171 MG/DL (70-100); SODIUM LEVEL 137 MEQ/L (136-145); TROPONIN I 0.16 NG/ML (< 0.10)
[2018-12-01] MEDS: OMEPRAZOLE 20 MG CAP PO SCH (08:05)
[2018-12-01] MEDS: FUROSEMIDE 20 MG TAB PO SCH (08:05)
[2018-12-01] MEDS: SPIRONOLACTONE 25 MG TAB PO SCH (08:05)
[2018-12-01] MEDS ORDERED: SLF 3 ML SYR IV PRN (08:30)
[2018-12-01] MEDS ORDERED: FLUMAZENIL 0.5 MG/5 ML VIAL As Ordered ONE (09:18)
[2018-12-01] MEDS ORDERED: MIDAZOLAM INJ 2 MG/2 ML VIAL (J2250) As Ordered ONE (09:19)
[2018-12-01] MEDS ORDERED: LIDOCAINE 1% MDV 20ML VIAL As Ordered ONE (09:21)
[2018-12-01] MEDS ORDERED: LIDOCAINE 1% MDV 20ML VIAL SC ONE (09:45)
[2018-12-01] MEDS ORDERED: MIDAZOLAM INJ 2 MG/2 ML VIAL (J2250) IV ONE ×2 (09:58→10:00)
[2018-12-01] MEDS ORDERED: FLUMAZENIL 0.5 MG/5 ML VIAL IV STA (11:00)
--- NOTE | 2018-12-01 11:11 | IPNPDOC ---
Subjective Date Seen The patient was seen on 12/01/18. Subjective Chief Complaint/HPI Patient sedated upon entering the room General: Reports: ROS Unobtainable Objective Physical Examination General Exam: Positive: Alert, Cooperative, Mild Distress, Moderate Distress Eye Exam: Positive: Conjunctiva & lids normal; Negative: Sclera icteric ENT Exam: Positive: Atraumatic, Mucous membr. moist/pink Neck Exam: Positive: Supple Chest Exam: Positive: Rhonchi (on right upper lobe and middle lobe region), Wheezing (on left upper lobe region), Diminished (diminshed lung sounds at base b/l), Other (increased accessory muscle use in neck; no obvious subcostal retraction); Negative: Clear to auscultation, Normal air movement Heart Exam: Positive: Tachycardic, Regular Rhythm, Normal S1, Normal S2; Negative: Murmurs Abdomen Exam: Positive: Normal bowel sounds, Soft; Negative: Tenderness Extremity Exam: Positive: Edema (3+ pitting edema in right ankle; 2+ pitting edema in left ankle), Normal pulses Neuro Exam: Positive: Sensation Intact, Other (speech intermittently disrupte by SOB); Negative: Strength at 5/5 X4 ext (Limited by SOB) Psych Exam: Positive: Mental status NL, Anxiety, Memory Intact, Oriented x 3 A-FIB/CHADSVASC A-FIB History Current/History of A-Fib/PAF?: No Assessment /Plan Problems (1) Malignant pleural effusion Status: Acute Problem Specific Plan: Consult Specialist Problem Text: 12/01/18: Dr. Elkins consulted. Pleurex cath placed at bedside with 750ml drained. Per Dr. Qiu repeat ECHO and CT scan ordered Dyspnea; pt currently sat around 90% on 2L NC. Large right pleural effusion and small left pleural effusion shown on CT; both increased in size. Dr. Qiu wi ll be inserting chest tube placement; fluid cytology and analysis with pleurex cath in place for output measurement. -PERCOCET prn PAIN -If pt still tachy and hypoxic once pleural effusion resolved/ ro PE. -Pt reported LUQ abdominal pain which is likely 2/2 pleuritis from pleural effusion; liver panel ordered to r/o GI abnormality (2) Pericardial effusion Status: Acute Problem Text: 12/01/18: This is felt to be secondary to malignancy. Likely 2/2 malignancy. dyspnea with non-productive cough. Pt reported lower extremities edema since d/c home last hospital visit but reported edema has been improving; cont home med Lasix and Spironolactone. (3) Elevated troponin Status: Acute Problem Text: 12/01/18: down to 0.16 elevated trop 0.19>0.02 likely 2/2 to pleural effusion; cannot r/o ACS at this point but pt denies chest pain only pleuritic chest pain during inspiration at substernal region. Repeat cardiac marker Q8H. (4) Adenocarcinoma of lung, stage 4 Status: Chronic Problem Text: Primary lung adenocarcinoma. S/p pallative radiation as it threatened SVC. No obvious pleortha noted. Pt reported that he was scheduled to start chemo this ; likely start chemo after the chest tube (5) COPD (chronic obstructive pulmonary disease) Status: Chronic Response to Treatment: Stable Problem Text: 12/01/18:Nebs treatments Prior PFT showed obstructive pattern. Neb treatment and maintain ox 88-92%. Cont home steroid and cont to monitor the pt (6) Type 2 diabetes mellitus Status: Chronic Response to Treatment: Stable Problem Text: Pt reported that he was prescribed insulin but not using it at home. FSBS ACHS and sliding scale insulin; hypoglycemia protocol Plan/VTE VTE Prophylaxis Ordered?: Yes (heparin SQ) Plan Family Medicine Attending Note: I saw and examined Mr. Wu, discussed with Jose Rfuf DNP. Agree with her note as documented. He was much more alert when I entered the room. He had his Pleurx catheter placed by Dr. Qiu as above, but also had a chance to meet with Dr. Garner, his medical oncologist. She plans to start palliative chemotherapy tomorrow. She is encouraged him to stay in the hospital for 3-4 days to monitor the most severe reactions after his chemotherapy. He seems agreeable to this. (fitter type bar and segment) VS, I&O, 24H, Fishbone Vital Signs/I&O Vital Signs Date Time Temp Pulse Resp B/P (MAP) Pulse Ox O2 Delivery O2 Flow Rate FiO2 12/01/18 09:24 18 2.0 12/01/18 08:54 25 12/01/18 07:44 98.5 125 93/75 (81) 94 11/30/18 18:16 Room Air I&O- Last 24 Hours up to 6 AM 12/01/18 06:00 Intake Total 1150 ml Output Total 425 ml Balance 725 ml Laboratory Data 24H LABS Laboratory Tests 2 11/30/18 14:43: Immature Granulocyte % (Auto) 1.4, White Blood Count 10.0, Red Blood Count 3.29L, Hemoglobin 9.0L, Hematocrit 30.8L, Mean Corpuscular Volume 93.6, Mean Corpuscular Hemoglobin 27.4, Mean Corpuscular Hemoglobin Concent 29.2L, Red Cell Distribution Width 19.8H, Platelet Count 210, Neutrophils (%) (Auto) 85.5H, Lymphocytes (%) (Auto) 3.3L, Monocytes (%) (Auto) 9.5H, Eosinophils (%) (Auto) 0.1, Basophils (%) (Auto) 0.2, Neutrophils # (Auto) 8.5H, Lymphocytes # (Auto) 0.3L, Monocytes # (Auto) 1.0H, Eosinophils # (Auto) 0.0, Basophils # (Auto) 0.0, Nucleated Red Blood Cells % (auto) 0.0, Anion Gap 4L, Glomerular Filtration Rate > 60.0, Blood Urea Nitrogen 15, Creatinine 0.42L, Sodium Level 136, Potassium Level 4.2, Chloride Level 100, Carbon Dioxide Level 32, Calcium Level 7.7L, Total Creatine Kinase 21L, Aspartate Amino Transf (AST/SGOT) 15, Alanine Aminotransferase (ALT/SGPT) 12, Alkaline Phosphatase 107, Total Bilirubin 0.3, Direct Bilirubin 0.2, Creatine Kinase MB 2.0, Creatine Kinase MB Relative Index 8.57H, Troponin I 0.19H, GF-Gqs-A-Type Natriuretic Peptide 1136H, Total Protein 6.3L, Albumin 1.4L, Albumin/Globulin Ratio 0.29L 12/01/18 01:56: Total Creatine Kinase 16L, Creatine Kinase MB 1.0, Creatine Kinase MB Relative Index 6.88H, Troponin I 0.18H 12/01/18 06:47: Nucleated Red Blood Cells % (auto) 0.0, Anion Gap 6L, Glomerular Filtration Rate > 60.0, Blood Urea Nitrogen 13, Creatinine 0.41L, Sodium Level 137, Potassium Level 4.0, Chloride Level 100, Carbon Dioxide Level 31, Calcium Level 7.9L, Total Creatine Kinase 16L, Creatine Kinase MB 1.0, Creatine Kinase MB Relative Index 7.50H, Troponin I 0.16H, Total Protein 6.0L, Lactate Dehydrogenase 251H CBC/BMP Laboratory Tests 11/30/18 14:43 Red Blood Count 3.29 L, Mean Corpuscular Volume 93.6, Mean Corpuscular Hemoglobin 27.4, Mean Corpuscular Hemoglobin Concent 29.2 L, Red Cell Distributi on Width 19.8 H, Neutrophils (%) (Auto) 85.5 H, Lymphocytes (%) (Auto) 3.3 L, Monocytes (%) (Auto) 9.5 H, Eosinophils (%) (Auto) 0.1, Basophils (%) (Auto) 0.2, Neutrophils # (Auto) 8.5 H, Lymphocytes # (Auto) 0.3 L, Monocytes # (Auto) 1.0 H, Eosinophils # (Auto) 0.0, Basophils # (Auto) 0.0, Calcium Level 7.7 L, Total Creatine Kinase 21 L 12/01/18 06:47 Red Blood Count 3.14 L, Mean Corpuscular Volume 93.6, Mean Corpuscular Hemoglobin 27.4, Mean Corpuscular Hemoglobin Concent 29.3 L, Red Cell Distribution Width 19.8 H, Calcium Level 7.9 L, Total Creatine Kinase 16 L Microbiology Microbiology 11/30/18 Blood Culture, Received Pending 11/30/18 Blood Culture, Received Pending JOSE RUFF December 01, 2018 11:11 am Clinton Loza MD December 01, 2018 10:18 pm
[2018-12-01 11:45] LABS: SOURCE, BODY FLUID pH PLEURAL
[2018-12-01 11:47] LABS: APPEARANCE, BODY FLUID CLOUDY (CLEAR); SOURCE, BODY FLUID PLEURAL
--- NOTE | 2018-12-01 12:14 | CR ---
DATE OF CONSULTATION: 12/01/2018 The patient is seen at the request of Dr. Taylor and Dr. Phu Chung of the emergency room for recurrent pleural effusion. 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 He underwent immediate radiation therapy. His tumor responded to radiation. He became short of breath in the middle of October where a chest tube was placed on the right side for metastatic pleural effusion. He is to undergo chemotherapy this week. Approximately starting last week, he started becoming more seriously short of breath such that he had trouble ambulating around his house. This was accompanied by increasing cough but without sputum production. He has sweats and chills but not shaking chills. When he sweats, he takes his temperature and his temperature is ranging anywhere between 101-102. The sweats are periodic and his temperature is periodic. He does not bring up any sputum. He has been able to maintain his weight since October weighing around 160. He has felt more fatigued but not as much as he was in October. His chest CT discussed below shows recurrent right pleural effusion. PAST MEDICAL HISTORY: 1. Diabetes. 2. Tobacco abuse. 3. Chronic obstructive pulmonary disease (COPD). PAST SURGICAL HISTORY: Biopsy of a right supraclavicular node, which was positive for adenocarcinoma. Status post BOONE bronchoscopy TRAVEL HISTORY: [place]. 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 EXPOSURES: He has one cat at home. No birds or dogs, and no exposure to tuberculosis. HABITS: He smoked 1 to 1-1/2 packs per day for 40 years. He stopped in September. No illicit drugs. He drinks socially. FAMILY HISTORY: Patient is adopted and unknown. MEDICATIONS AT HOME: - Lasix 20 mg daily - insulin glargine 10 units as needed - omeprazole 20 mg every day - spironolactone 25 mg every day - along with albuterol neb as needed shortness of breath - He takes Percocet 5/325 four times a day as needed, pain. ALLERGIES: NONE. REVIEW OF SYSTEMS: Constitutional: See HPI. Eyes: Without diplopia. Without prior jaundice. Without amaurosis fugax. Nose: Without epistaxis. Mouth: Has only a few teeth left. Respiratory: See HPI. Cardiac: He does not feel palpitations or tachycardia, although he runs a tachycardia consistently between 100-120. No angina or intermittent claudication. He does have peripheral edema. Gastrointestinal (GI): Without nausea, vomiting, diarrhea, constipation, melena, hematochezia, or hematemesis. Genitourinary (): Without dysuria, hematuria or history of renal stones. Endocrine: With diabetes. Without thyroid disease. Neurologic: Without paresthesias, paralysis or prior seizures. Hematologic: Without prolonged bleeding times and not on anticoagulants. Psychiatric: Without pathological anxiety, psychoses or depressions. PHYSICAL EXAMINATION: Cachectic black male, in mild distress with coughing and shortness of breath with sentences. Vital signs: Temperature is 98.5, heart rate is 125 in a sinus rhythm, respiratory rate of 18 without the use of accessory muscles, blood pressure is 93/75 who is 94% saturated on room air. Eyes: Pupils equal, round and reactive to light. Extraocular movement intact. Sclera anicteric. Nose without deformity. Mouth shows his mucous membranes to be pink and moist. Lips and commissures without lesions. There is no thrush. He is edentulous. Neck is supple. There is no jugular venous distention. No subcutaneous emphysema. I do feel hard anterior cervical lymph nodes on the right, none on the left. There is no thyromegaly. He has 2+ carotid upstrokes. No bruits. Lungs show decreased breath sounds on the right side with E-to-A egophony on the right. Percussion note is dull at the right base. Left lung shows normal vesicular sounds without wheezes, rhonchi or rales, with a full percussion note to the diaphragm. Cardiac exam shows tachycardia, without murmurs, clicks, gallops or rubs. I cannot feel his point of maximum impulse (PMI). S1, S2 are normal. Abdomen is soft, nontender. Bowel sounds are positive. There is no hepatomegaly. No costovertebral angle (CVA) tenderness. Extremities show 1+ ankle edema and trace pretibial edema. There is no calf tenderness. No differential swelling of the upper extremities. Skin is warm, dry and perfused, without cyanosis or mottling including that of the nail beds and knees. Neurologic shows II-XII intact, along with gross motor and gross sensation intact. Gait is not tested. Psychiatric shows him to be awake and alert, oriented times three with appropriate mood and affect and conversational. His white count today is 9.7 with hemoglobin and hematocrit of 8.6 and 29.4. Platelet count is 209. Differential yesterday showed 85% neutrophils, 33% lymphocytes, 9% monocytes. There were no immature forms. No toxic granulations. Electrolytes today are normal with a BUN and creatinine of 13 and 0.41. Calcium is .9 with a glucose of 171. Troponins were elevated yesterday at 0.19 and now 0.16 today. I do not see an EKG, and I will order one. His chest CT done yesterday in the emergency room shows a moderate to large right pleural effusion. He has a corresponding small left pleural effusion. There are radiation changes to the right upper lobe. There is an infiltrative process probably in the lingula. There is a small pericardial effusion, which is only marginally larger than it was in October of this year. The study today is done without contrast. I will obtain an echocardiogram on him. There does look to be a residual mass paratracheally. I cannot police shift commander status of the vena cava. He has a resulting compression atelectasis of the right lower lobe secondary to the pleural effusion. The left adrenal has a normal configuration. The right adrenal looks to have a rounded mass associated with it. I do not see liver metastases per se. IMPRESSION: 1. Advanced stage IV adenocarcinoma right lung. 2. 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 3. Recurrent right pleural effusion. 4. Pericardial effusion slightly larger. 5. Chronic obstructive pulmonary disease. 6. Diabetes. 7. Left upper lobe lingular infiltrate. PLAN AND DISCUSSION: His most pressing problems at this point in time is his shortness of breath. This can probably be relieved with drainage of his chest. He has already undergone drainage of one effusion with a chest tube and this is now recurrent. I will therefore recommend placing a PleurX catheter. I will obtain an echocardiogram of his heart and also an EKG, which I cannot find was done. His troponins are up and it may be merely secondary to the pericardial effusion. He has no clinical signs of a myocardial infarction. We will also have to evaluate the mediastinum as his SVC could again be involved with the mediastinal mass.
[2018-12-01 12:40] LABS: AMYLASE, BODY FLUID 13 U/L (NOT ESTABLISHED); CHOLESTEROL, BODY FLUID < 50 MG/DL (NOT ESTABLISHED); LDH, BODY FLUID 434 U/L (NOT ESTABLISHED); SOURCE, BODY FLUID ALBUMIN PLEURAL; SOURCE, BODY FLUID AMYLASE PLEURAL; SOURCE, BODY FLUID CHOL PLEURAL; SOURCE, BODY FLUID GLUCOSE PLEURAL; SOURCE, BODY FLUID LDH PLEURAL; SOURCE, BODY FLUID TOT PROTEIN PLEURAL; SOURCE, BODY FLUID TRIG PLEURAL; TOTAL PROTEIN, BODY FLUID 3.6 G/DL (NOT ESTABLISHED); TRIGLYCERIDE, BODY FLUID 163 MG/DL (NOT ESTABLISHED)
--- NOTE | 2018-12-01 12:51 | REP ---
Portable chest x-ray: Single view. History: Pleural effusion. Comparison study: November 29, 2018. Para CT study of the chest is from November 30, 2018. Findings: A right sided chest tube has been placed. Right pleural effusion is improved. There are coarse areas of parenchymal opacity in the left perihilar region right upper lobe, and right base which are unchanged. There is no evidence of pneumothorax. Electronically Signed by Steve Kemp MD 12/01/2018 12:42 P
[2018-12-01] MEDS ORDERED: ISOVUE-370 76% 100ML VIAL (Q9967) As Ordered ONE (13:01)
--- NOTE | 2018-12-01 13:07 | RO ---
DATE OF PROCEDURE: 12/01/2018 PREPROCEDURE DIAGNOSIS: Right recurrent malignant pleural effusion. POSTPROCEDURE DIAGNOSIS: Right recurrent malignant pleural effusion. PROCEDURE: Insertion of tunneled PleurX catheter right side. SURGEON: Dr. Cali Qiu PROCESS SAFETY ENGINEER: ANESTHESIA: FINDINGS: The chest drained 750 mL of cloudy, what looked to be chylous fluid. DESCRIPTION OF PROCEDURE: Under satisfactory moderate sedation achieved with 3 mg of Versed, the patient was prepped and draped in the usual sterile fashion. The catheter placement was chosen in the approximately 8th intercostal space which was infiltrated with 1% lidocaine, including the skin, subcutaneous tissue and pleura. Exploring needle was placed and withdrew pleural fluid. A wire was then placed. The exit site was then chosen and infiltrated with 1% lidocaine along with the proposed tunnel tract. Incision was made at the exit and entrance sites. The tunneler was passed and the PleurX catheter was pulled through the tunnel. The collar was placed approximately 1-2 cm distal to the exit incision. The wire tract was then dilated and a peel away introduced placed. The PleurX catheter was then place in the peel away introducer. The skin was then closed with running #4-0 Monopril subcuticular suture. The catheter was anchored to the skin with #3-0 silk suture. Dermabond was placed. The chest was drained for the above volume. It will be sent for the requisite chemistries, bacteriologies, cytologies and hematology. The patient tolerated the procedure well and a chest x-ray is pending.
--- NOTE | 2018-12-01 13:26 | ECGEPIP ---
Stationary ECG Study [facility] - ED Test Date: 2018-11-30 Pat Name: BUZZ MILLER Department: Room: - Gender: M Last Putter Away: kervin : 1960 Requested By: SEN Edwards Order Number: [id number] Reading MD: Crystal Vick Measurements Intervals [place] Rate: 138 P: 75 NE: 149 QRS: 93 QRSD: 89 T: 81 QT: 285 QTc: 432 Interpretive Statements SINUS TACHYCARDIA BORDERLINE RIGHT AXIS DEVIATION LOW QRS VOLTAGE IN EXTREMITY LEADS NSTTW ABNORMALITY ABNORMAL RHYTHM ECG DECREASED RATE 11/06/18 Electronically Signed On 12-01-2018 13:25:59 EDT by Crystal Vick
--- NOTE | 2018-12-01 14:38 | REP ---
CT chest with IV contrast: History: Pleural effusion. CT contrast dose: 75 mL of intravenous Isovue 370. Comparison CT study is from November 30, 2018 done without IV contrast. CT findings: An PleurX catheter has been inserted in the right pleural space. It courses posteriorly to terminate in the upper thoracic pleural space. There is a small to moderate right pleural effusion remaining. This is only slightly decreased from the November 30, 2018 study. There is a small left pleural effusion which has increased in size very slightly. A moderate pericardial effusion is seen. This has increased in size as well. There is no evidence of cardiac compression by CT criteria. Vascular calcifications noted. There is fairly bulky mediastinal lymphadenopathy with subcarinal, precarinal, left main and AP window, and anterior mediastinal adenopathy. The largest scarlet lesion is in the pretracheal and right paratracheal region. This measures 5.5 x 4.4 x 3.3 cm. The superior vena cava is flattened along its posterior aspect by this scarlet process but not narrowed. There is retrocrural low density adenopathy. Upper abdominal adenopathy is seen in the celiac axis lymph nodes. There is mild parietal pleural thickening but no real pleural nodularity is appreciated. Atelectatic changes are seen in the right lower lobe. There is peribronchial thickening. Patchy infiltrates are seen in the upper lobes bilaterally, the right middle lobe, and atelectasis is visible in the lower lobes. No bony destructive lesion is seen. There is a 16 mm right adrenal nodule. Impression: Right-sided PleurX catheter. Bilateral pleural effusions. Increased pericardial effusion now moderate. Bulky mediastinal lymphadenopathy and upper abdominal lymphadenopathy. There is a small nodule in the right adrenal gland as well. Electronically Signed by Steve Kemp MD 12/01/2018 04:31 P
[2018-12-01] MEDS: SLF 3 ML SYR IV SCH ×2 (14:41→22:26)
[2018-12-01] MEDS: FOLIC ACID 1 MG TAB PO SCH (16:58)
--- NOTE | 2018-12-01 17:08 | CR ---
MEDICAL ONCOLOGY INPATIENT CONSULT BRIEF: DATE OF SERVICE: 12/01/2018 Patient is seen for chemotherapy consent. He has now undergone right thoracentesis PleurX placement; feeling much better. 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 I discussed the risks, benefits, side effects and alternatives of chemotherapy and immunotherapy with Winston and his . I obtained written informed consent after this discussion. Explanation of risks and benefits included but was not limited to: Alopecia, nausea, vomiting, myelosuppression including anemia, thrombocytopenia and leukopenia potentially leading to fatigue, bruising or bleeding, infection. Risks of autoimmune side effects such as thyroiditis, pneumonitis, colitis, hepatitis. Written informed consent was obtained. Winston will begin carboplatin/pemetrexed/pembrolizumab tomorrow. The treatment is given on an every 21-day basis. Neulasta support will be provided. He received B12 injection previously in the clinic in the last month, anticipating start of pemetrexed. RECOMMENDATION: 1. Folic acid 1 mg daily throughout the course of chemotherapy. 2. B12 will be repeated every three cycles. 3. Would make sure Mr. Wu gets through the first several days of chemotherapy before discharging from hospital given his multiple prior complications in the last few months. 4. Will follow. MTDD
--- NOTE | 2018-12-01 21:06 | ECHO ---
DATE OF PROCEDURE: 12/01/2018 REFERRING PHYSICIAN: Cali Qiu MD PATIENT LOCATION: Room 3218 REASON FOR ECHOCARDIOGRAM: Pericardial effusion. 2D MEASUREMENTS: IVS: 1.0 cm LV: 4.9 cm LVPW: 1.0 cm LA: 3.1 cm Aorta: 3.2 cm IVC: 1.87 cm DOPPLER MEASUREMENTS: Peak velocity across the aortic valve: 1.0 m/s Peak velocity across the LVOT: 0.83 m/s Maximum tricuspid valve velocity: 2.5 m/s 2D COMMENTS: 1. Normal left ventricular size and wall thickness, but with a moderately depressed global left ventricular systolic function. There was moderate global hypokinesis. The estimated left ventricular systolic ejection fraction is 35%. 2. Normal left atrium. Normal right atrium and right ventricle. 3. The atrial septum appeared to be normal without evidence of defect or shunt. 4. Normal aortic root. 5. Small pericardial effusion was noted, no evidence of cardiac tamponade and was mainly seen posterior to the base of the left ventricle. Significant right pleural effusion also noted. 6. Mildly calcified aortic valve with normal leaflet excursion. Mildly calcified mitral annulus with normal anterior mitral valve leaflet motion. Normal tricuspid valve and pulmonic valve. The proximal pulmonary artery branches also appeared to be normal. 7. The inferior vena cava was normal in size, central venous pressure is most likely normal. DOPPLER: It detects trace aortic regurgitation, mild to moderate mitral regurgitation, mild tricuspid regurgitation, and mild pulmonic regurgitation. The calculated pulmonary artery systolic pressure varies between 30 to 40 mmHg. Assessment of the left ventricular diastolic function subjectively appeared to be normal. IMPRESSION: 1. Moderate global left ventricular systolic dysfunction with global hypokinesis. Left ventricular diastolic function appeared to be normal. 2. Aortic valve sclerosis with trace aortic regurgitation but no aortic stenosis. 3. Mitral annulus calcification with mild to moderate mitral regurgitation. 4. Mild tricuspid regurgitation with mild pulmonary hypertension. 5. Mild pulmonic regurgitation. 6. Small pericardial effusion noted, no evidence of cardiac tamponade. Significant right pleural effusion also noted. MTDD
[2018-12-02] VITALS (7 sets, daily range): BP systolic 96–113; BP diastolic 52–82
[2018-12-02] MEDS: PERCOCET 5MG/325MG TAB PO PRN ×4 (02:50→23:31)
[2018-12-02 05:35] LABS: BASO % 0.1 % (0.0-1.0); HEMATOCRIT 30.5 % (42.0-52.0); HEMOGLOBIN 8.8 g/dl (13.5-17.5); LYMPH # 0.3 10^3/uL (1.5-4.5); LYMPH % 2.3 % (24.0-44.0); MEAN CORPUSCULAR HEMOGLOBIN 27.2 pg (27.0-33.0); MEAN CORPUSCULAR HGB CONC 28.9 g/dl (32.0-36.5); MEAN CORPUSCULAR VOLUME 94.1 fl (80.0-96.0); MONO # 0.9 10^3/uL (0.0-0.8); MONO % 7.1 % (0.0-5.0); NEUTROPHILS # 10.9 10^3/uL (1.8-7.7); NEUTROPHILS % 89.5 % (36.0-66.0); PLATELET COUNT, AUTOMATED 232 10^3/uL (150-450); RED BLOOD COUNT 3.24 10^6/uL (4.30-6.10); WHITE BLOOD COUNT 12.2 10^3/uL (4.0-10.0)
[2018-12-02] MEDS: HEPARIN SOD (PORCINE) 5000 UNITS/ML VIAL SQ SCH ×3 (06:45→22:02)
[2018-12-02] MEDS: SLF 3 ML SYR IV SCH ×3 (06:46→22:03)
[2018-12-02 06:47] LABS: ALBUMIN 1.3 GM/DL (3.2-5.2); ALT/SGPT 17 U/L (12-78); BILIRUBIN,TOTAL 0.2 MG/DL (0.2-1.0); BLOOD UREA NITROGEN 13 MG/DL (7-18); CALCIUM LEVEL 7.5 MG/DL (8.5-10.1); CARBON DIOXIDE LEVEL 30 MEQ/L (21-32); CHLORIDE LEVEL 101 MEQ/L (98-107); CREATININE FOR GFR 0.34 MG/DL (0.70-1.30); GLOMERULAR FILTRATION RATE > 60.0 (>56); GLUCOSE, FASTING 157 MG/DL (70-100); POTASSIUM SERUM 4.4 MEQ/L (3.5-5.1); SODIUM LEVEL 138 MEQ/L (136-145); TOTAL PROTEIN 6.2 GM/DL (6.4-8.2)
--- NOTE | 2018-12-02 08:35 | IPNPDOC ---
Subjective Date Seen The patient was seen on 12/02/18. Subjective Chief Complaint/HPI Patient was sitting in wheelchair awaiting to go down for imaging when I entered the room. He reports PleurX catheter was drained this morning. Per nursing approx 1300cc was removed Constitutional: Denies: Chills, Fever Pulmonary: Reports: Dyspnea (improved), Cough; Denies: Pleuritic Chest Pain Cardiovascular: Reports: Edema; Denies: Chest Pain, Palpitations, Orthopnea Gastrointestinal: Denies: Nausea, Vomiting Psych: Reports: Mood Normal Objective Physical Examination General Exam: Positive: Alert, Cooperative, No Acute Distress Eye Exam: Positive: Conjunctiva & lids normal; Negative: Sclera icteric ENT Exam: Positive: Atraumatic, Mucous membr. moist/pink Neck Exam: Positive: Supple Chest Exam: Positive: Rhonchi (on right upper lobe and middle lobe region), Wheezing (on left upper lobe region), Diminished (diminshed lung sounds at base b/l), Other (increased accessory muscle use in neck; no obvious subcostal retraction); Negative: Clear to auscultation, Normal air movement Heart Exam: Positive: Tachycardic, Regular Rhythm, Normal S1, Normal S2; Negative: Murmurs Abdomen Exam: Positive: Normal bowel sounds, Soft; Negative: Tenderness Extremity Exam: Positive: Edema (3+ pitting edema in right ankle; 2+ pitting edema in left ankle), Normal pulses Neuro Exam: Positive: Sensation Intact; Negative: Strength at 5/5 X4 ext (Limited by SOB) Psych Exam: Positive: Mental status NL, Anxiety, Memory Intact, Oriented x 3 A-FIB/CHADSVASC A-FIB History Current/History of A-Fib/PAF?: No Assessment /Plan Problems (1) Malignant pleural effusion Status: Acute Problem Specific Plan: Consult Specialist Problem Text: 12/02/18: PleurX catheter inserted yesterday. Approx 1300cc removed this morning. Patient scheduled for chest x-ray this morning. Chest CT 12/01/18: Right-sided PleurX catheter. Bilateral pleural effusions. Increased pericardial effusion now moderate. Bulky mediastinal lymphadenopathy and upper abdominal lymphadenopathy. There is a small nodule in the right adrenal gland as well. 12/01/18: Dr. Elkins consulted. Pleurex cath placed at bedside with 750ml drained. Per Dr. Qiu repeat ECHO and CT scan ordered Dyspnea; pt currently sat around 90% on 2L NC. Large right pleural effusion and small left pleural effusion shown on CT; both increased in size. Dr. Qiu will be inserting chest tube placement; fluid cytology and analysis with pleurex cath in place for output measurement. -PERCOCET prn PAIN -If pt still tachy and hypoxic once pleural effusion resolved/ ro PE. -Pt reported LUQ abdominal pain which is likely 2/2 pleuritis from pleural effusion; liver panel ordered to r/o GI abnormality (2) Pericardial effusion Status: Acute Problem Text: 12/02/18: ECHO performed yesterday. Continue with current regimen ECHO 12/01/18: IMPRESSION: 1. Moderate global left ventricular systolic dysfunction with global hypokinesis. Left ventricular diastolic function appeared to be normal. 2. Aortic valve sclerosis with trace aortic regurgitation but no aortic stenosis. 3. Mitral annulus calcification with mild to moderate mitral regurgitation. 4. Mild tricuspid regurgitation with mild pulmonary hypertension. 5. Mild pulmonic regurgitation. 6. Small pericardial effusion noted, no evidence of cardiac tamponade. Significant right pleural effusion also noted. 12/01/18: This is felt to be secondary to malignancy. Likely 2/2 malignancy. dyspnea with non-productive cough. Pt reported lower extremities edema since d/c home last hospital visit but reported edema has been improving; cont home med Lasix and Spironolactone. (3) Adenocarcinoma of lung, stage 4 Status: Chronic Problem Text: 12/02/18: Dr. Taylor consulted yesterday. Patient with stage IV poorly differentiated adenocarcinoma of lung, service parts driver mutation negative, PD-L1 low. He is status post mediastinal radiation now with evidence of progression including recurrent right pleural effusion, new right psoas mass, new mesenteric lymphadenopathy. RECOMMENDATION: 1. Folic acid 1 mg daily throughout the course of chemotherapy. 2. B12 will be repeated every three cycles. 3. Would make sure Mr. Wu gets through the first several days of chemotherapy before discharging from hospital given his multiple prior complications in the last few months. 4. Will follow. Primary lung adenocarcinoma. S/p pallative radiation as it threatened SVC. No obvious pleortha noted. Pt reported that he was scheduled to start chemo this ; likely start chemo after the chest tube (4) Elevated troponin Status: Acute Problem Text: 12/01/18: down to 0.16 elevated trop 0.19>0.02 likely 2/2 to pleural effusion; cannot r/o ACS at this point but pt denies chest pain only pleuritic chest pain during inspiration at substernal region. Repeat cardiac marker Q8H. (5) COPD (chronic obstructive pulmonary disease) Status: Chronic Response to Treatment: Stable Problem Text: 12/01/18:Nebs treatments Prior PFT showed obstructive pattern. Neb treatment and maintain ox 88-92%. Cont home steroid and cont to monitor the pt (6) Type 2 diabetes mellitus Status: Chronic Response to Treatment: Stable Problem Text: Pt reported that he was prescribed insulin but not using it at home. FSBS ACHS and sliding scale insulin; hypoglycemia protocol Plan/VTE VTE Prophylaxis Ordered?: Yes (heparin SQ) Plan Family Medicine Attending Note: I saw and examined Mr. Wu, discussed with Jose Ruff DNP. Agree with her note as documented. He reports she feels quite well today. I suspect this is because he had the 1300 mL of fluid removed from his chest cavity this morning. He did get his palliative chemotherapy today. We made some slight adjustments to his pain management regimen to more reflect what he does home. 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, I&O, 24H, Fishbone Vital Signs/I&O Vital Signs Date Time Temp Pulse Resp B/P (MAP) Pulse Ox O2 Delivery O2 Flow Rate FiO2 12/02/18 07:18 22 12/02/18 04:00 97.8 119 96/52 (67) 96 12/01/18 20:00 2.0 12/01/18 08:54 25 11/30/18 18:16 Room Air I&O- Last 24 Hours up to 6 AM 12/02/18 06:00 Intake Total 900 ml Output Total 1150 ml Balance -250 ml Laboratory Data 24H LABS Laboratory Tests 2 12/01/18 10:54: Body Fluid pH 7.580, Body Fluid pH Source PLEURAL, Body Fluid WBC (Auto) 149H, Body Fluid RBC (Auto) 3, Body Fluid Mononuclear Cells % Auto 74.5H, Fluid Polymorphonuclear Cell % Auto 25.5H, Body Fluid Glucose Source PLEURAL, Body Fluid Glucose 153, Body Fluid Protein Source PLEURAL, Body Fluid Total Protein 3.6, Body Fluid Albumin Source PLEURAL, Body Fluid Albumin 1.1, Body Fluid LDH Source PLEURAL, Body Fluid Lactate Dehydrogenase 434, Body Fluid Amylase Source PLEURAL, Body Fluid Amylase 13, Body Fluid Cholesterol < 50, Body Fluid Chol esterol Source PLEURAL, Body Fluid Triglyceride Source PLEURAL, Body Fluid Triglycerides 163, Pleural Fluid Source PLEURAL, Pleural Fluid Color WHITE, Pleural Fluid Appearance CLOUDY 12/02/18 05:23: Immature Granulocyte % (Auto) 1.0, White Blood Count 12.2H, Red Blood Count 3.24 L, Hemoglobin 8.8L, Hematocrit 30.5L, Mean Corpuscular Volume 94.1, Mean Corpuscular Hemoglobin 27.2, Mean Corpuscular Hemoglobin Concent 28.9L, Red Cell Distribution Width 19.3H, Platelet Count 232, Neutrophils (%) (Auto) 89.5H, Lymphocytes (%) (Auto) 2.3L, Monocytes (%) (Auto) 7.1H, Eosinophils (%) (Auto) 0.0, Basophils (%) (Auto) 0.1, Neutrophils # (Auto) 10.9H, Lymphocytes # (Auto) 0.3L, Monocytes # (Auto) 0.9H, Eosinophils # (Auto) 0.0, Basophils # (Auto) 0.0, Nucleated Red Blood Cells % (auto) 0.0 12/02/18 05:51: Anion Gap 7L, Glomerular Filtration Rate > 60.0, Blood Urea Nitrogen 13, Creatinine 0.34L, Sodium Level 138, Potassium Level 4.4, Chloride Level 101, Carbon Dioxide Level 30, Calcium Level 7.5L, Aspartate Amino Transf (AST/SGOT) 18, Alanine Aminotransferase (ALT/SGPT) 17, Alkaline Phosphatase 117, Total Bilirubin 0.2, Total Protein 6.2L, Albumin 1.3L, Albumin/Globulin Ratio 0.27L CBC/BMP Laboratory Tests 12/02/18 05:23 Red Blood Count 3.24 L, Mean Corpuscular Volume 94.1, Mean Corpuscular Hemoglobin 27.2, Mean Corpuscular Hemoglobin Concent 28.9 L, Red Cell Distribution Width 19.3 H, Neutrophils (%) (Auto) 89.5 H, Lymphocytes (%) (Auto) 2.3 L, Monocytes (%) (Auto) 7.1 H, Eosinophils (%) (Auto) 0.0, Basophils (%) (Auto) 0.1, Neutrophils # (Auto) 10.9 H, Lymphocytes # (Auto) 0.3 L, Monocytes # (Auto) 0.9 H, Eosinophils # (Auto) 0.0, Basophils # (Auto) 0.0 12/02/18 05:51 Calcium Level 7.5 L, Aspartate Amino Transf (AST/SGOT) 18, Alanine Aminotransferase (ALT/SGPT) 17, Alkaline Phosphatase 117, Total Bilirubin 0.2, Total Protein 6.2 L, Albumin 1.3 L Microbiology Microbiology 11/30/18 Blood Culture - Preliminary, Resulted No growth after 24 hours . All specim... 11/30/18 Blood Culture - Preliminary, Resulted No growth after 24 hours . All specim... 12/01/18 Gram Stain - Final, Resulted 12/01/18 Anaerobic Culture, Resulted Pending 12/01/18 Body Fluid Culture, Received Pending 12/01/18 Acid Fast Stain, Received Pending 12/01/18 Mycobacterial Culture, Received Pending 12/01/18 Fungal Smear, Received Pending 12/01/18 Fungal Culture, Received Pending JOSE RUFF December 02, 2018 8:35 am Clinton Loza MD December 02, 2018 11:06 pm
[2018-12-02] MEDS: HumaLOG INSULIN (NovoLOG) PER UNIT SC SCH ×4 (08:39→20:32)
[2018-12-02] MEDS: FOLIC ACID 1 MG TAB PO SCH (08:47)
[2018-12-02] MEDS: FUROSEMIDE 20 MG TAB PO SCH (08:47)
[2018-12-02] MEDS: SPIRONOLACTONE 25 MG TAB PO SCH (08:47)
[2018-12-02] MEDS: OMEPRAZOLE 20 MG CAP PO SCH (08:47)
[2018-12-02] MEDS ORDERED: FOSAPREPITANT PERIPHERAL LINE 30 MIN INFUSION (PREMIX) IV ONE ×2 (09:00)
[2018-12-02] MEDS ORDERED: PALONOSETRON 250 MCG IV IV ONE (09:00)
[2018-12-02] MEDS ORDERED: PROCHLORPERAZINE 10 MG PO PO ONE (09:00)
[2018-12-02] MEDS ORDERED: ACETAMINOPHEN 650 MG PO PO ONE (09:00)
[2018-12-02] MEDS ORDERED: dexameTHASONE 10 MG IV IV ONE (09:00)
[2018-12-02] MEDS ORDERED: PERCOCET 5MG/325MG TAB PO PRN (09:30)
[2018-12-02] MEDS ORDERED: PEMBROLIZUMAB OVER 30 MINUTES IV ONE ×2 (09:30)
[2018-12-02] MEDS ORDERED: NS IV ONE ×2 (10:00→10:10)
[2018-12-02] MEDS ORDERED: PEMETREXED DISODIUM IV ONE (10:00)
[2018-12-02] MEDS ORDERED: CARBOPLATIN IV ONE (10:10)
--- NOTE | 2018-12-02 11:57 | REP ---
Chest x-ray: Two views: History: Pleural effusion. Comparison chest x-ray: December 01, 2018. Findings: The right-sided Pleurx catheter remains in place. The right pleural effusion is much improved. There is improved aeration in the right lung and left lung. Some linear fibrotic opacity is seen adjacent to the aorta and the left at the apex and there is some left perihilar interstitial opacity. Mild linear plate-like atelectasis is seen just below the minor fissure on the right and there is some mild linear perihilar plate-like atelectasis. Ill-defined nodularity is seen in the right upper lobe region. These findings are unchanged. Electronically Signed by Steve Kemp MD 12/02/2018 02:01 P
[2018-12-03] VITALS (8 sets, daily range): BP systolic 94–145; BP diastolic 61–82
[2018-12-03] MEDS: PERCOCET 5MG/325MG TAB PO PRN ×7 (03:36→22:40)
[2018-12-03] MEDS: HEPARIN SOD (PORCINE) 5000 UNITS/ML VIAL SQ SCH ×3 (06:37→21:28)
[2018-12-03] MEDS: SLF 3 ML SYR IV SCH ×3 (06:38→21:30)
[2018-12-03] MEDS: HumaLOG INSULIN (NovoLOG) PER UNIT SC SCH ×4 (07:30→21:00)
--- NOTE | 2018-12-03 08:23 | REP ---
Chest x-ray: Two views: History: Pleural effusion. Findings: A right-sided Pleurx catheter is seen in the posterior lung gutter terminating medially. The previously noted right pleural effusion is evacuated. There is some fissural thickening visible on the right. Ill-defined nodules are seen dispersed in the right lung. There is a linear opacity at adjacent to the aortic knob in the left upper lobe and there is interstitial infiltrate in a perihilar distribution on the left as well unchanged. Electronically Signed by Steve Kemp MD 12/03/2018 05:19 P
[2018-12-03] MEDS: FUROSEMIDE 20 MG TAB PO SCH (09:02)
[2018-12-03] MEDS: SPIRONOLACTONE 25 MG TAB PO SCH (09:02)
[2018-12-03] MEDS: FOLIC ACID 1 MG TAB PO SCH (09:02)
[2018-12-03] MEDS: OMEPRAZOLE 20 MG CAP PO SCH (09:02)
[2018-12-03] MEDS: FUROSEMIDE 40 MG/4 ML VIAL (J1940) IV SCH (09:03)
[2018-12-03 10:05] LABS: BASO % 0.1 % (0.0-1.0); HEMATOCRIT 33.6 % (42.0-52.0); HEMOGLOBIN 9.9 g/dl (13.5-17.5); LYMPH % 1.1 % (24.0-44.0); MEAN CORPUSCULAR HEMOGLOBIN 27.9 pg (27.0-33.0); MEAN CORPUSCULAR HGB CONC 29.5 g/dl (32.0-36.5); MEAN CORPUSCULAR VOLUME 94.6 fl (80.0-96.0); MONO # 0.6 10^3/uL (0.0-0.8); MONO % 3.7 % (0.0-5.0); NEUTROPHILS # 14.7 10^3/uL (1.8-7.7); NEUTROPHILS % 94.3 % (36.0-66.0); PLATELET COUNT, AUTOMATED 274 10^3/uL (150-450); RED BLOOD COUNT 3.55 10^6/uL (4.30-6.10); WHITE BLOOD COUNT 15.6 10^3/uL (4.0-10.0)
[2018-12-03 10:25] LABS: LYMPH # 0.2 10^3/uL (1.5-4.5)
[2018-12-03 10:33] LABS: ALBUMIN 1.4 GM/DL (3.2-5.2); ALT/SGPT 17 U/L (12-78); BILIRUBIN,TOTAL 0.2 MG/DL (0.2-1.0); BLOOD UREA NITROGEN 13 MG/DL (7-18); CALCIUM LEVEL 8.6 MG/DL (8.5-10.1); CARBON DIOXIDE LEVEL 31 MEQ/L (21-32); CHLORIDE LEVEL 99 MEQ/L (98-107); CREATININE FOR GFR 0.47 MG/DL (0.70-1.30); GLOMERULAR FILTRATION RATE > 60.0 (>56); GLUCOSE, FASTING 212 MG/DL (70-100); POTASSIUM SERUM 4.2 MEQ/L (3.5-5.1); SODIUM LEVEL 136 MEQ/L (136-145); TOTAL PROTEIN 6.9 GM/DL (6.4-8.2)
[2018-12-03] MEDS ORDERED: PEGFILGRASTIM 6 MG/0.6ML SYR (NEULASTA) (J2505 PER 6MG) SC ONE (11:00)
--- NOTE | 2018-12-03 11:00 | IPNPDOC ---
Subjective Date Seen The patient was seen on 12/03/18. Subjective Chief Complaint/HPI Patient reports to be feeling better today, breathing has improved. Constitutional: Denies: Chills, Fever Pulmonary: Reports: Cough; Denies: Dyspnea, Pleuritic Chest Pain Cardiovascular: Reports: Edema; Denies: Chest Pain, Palpitations, Orthopnea Gastrointestinal: Denies: Nausea, Vomiting Psych: Reports: Mood Normal Objective Physical Examination General Exam: Positive: Alert, Cooperative, No Acute Distress Eye Exam: Positive: Conjunctiva & lids normal; Negative: Sclera icteric ENT Exam: Positive: Atraumatic, Mucous membr. moist/pink Neck Exam: Positive: Supple Chest Exam: Positive: Rhonchi (on right upper lobe and middle lobe region), Diminished (diminshed lung sounds at base b/l); Negative: Wheezing Heart Exam: Positive: Tachycardic, Regular Rhythm, Normal S1, Normal S2; Negative: Murmurs Abdomen Exam: Positive: Normal bowel sounds, Soft; Negative: Tenderness Extremity Exam: Positive: Edema (3+ pitting edema in right ankle; 2+ pitting edema in left ankle), Normal pulses Neuro Exam: Positive: Sensation Intact; Negative: Strength at 5/5 X4 ext (Limited by SOB) Psych Exam: Positive: Mental status NL, Anxiety, Memory Intact, Oriented x 3 A-FIB/CHADSVASC A-FIB History Current/History of A-Fib/PAF?: No Assessment /Plan Problems (1) Malignant pleural effusion Status: Acute Problem Specific Plan: Consult Specialist Problem Text: 12/03/18: Drained this morning, per family member very small amount. WBC 15.1. BC negative x 48 hours. Afebrile. Pleural fluid anaerobic culture no growth. Acid fast, mycobacterial culture, fungal smear and fungal culture pending. This is being managed by Dr. Qiu Chest x-ray 12/03/18: Findings: A right-sided Pleurx catheter is seen in the posterior lung gutter terminating medially. The previously noted right pleural effusion is evacuated. There is some fissural thickening visible on the right. Ill-defined nodules are seen dispersed in the right lung. There is a linear opacity at adjacent to the aortic knob in the left upper lobe and there is interstitial infiltrate in a perihilar distribution on the left as well unchanged. 12/02/18: PleurX catheter inserted yesterday. Approx 1300cc removed this morning. Patient scheduled for chest x-ray this morning. Chest CT 12/01/18: Right-sided PleurX catheter. Bilateral pleural effusions. Increased pericardia l effusion now moderate. Bulky mediastinal lymphadenopathy and upper abdominal lymphadenopathy. There is a small nodule in the right adrenal gland as well. 12/01/18: Dr. Elkins consulted. Pleurex cath placed at bedside with 750ml drained. Per Dr. Qiu repeat ECHO and CT scan ordered Dyspnea; pt currently sat around 90% on 2L NC. Large right pleural effusion and small left pleural effusion shown on CT; both increased in size. Dr. Qiu will be inserting chest tube placement; fluid cytology and analysis with pleurex cath in place for output measurement. -PERCOCET prn PAIN -If pt still tachy and hypoxic once pleural effusion resolved/ ro PE. -Pt reported LUQ abdominal pain which is likely 2/2 pleuritis from pleural effusion; liver panel ordered to r/o GI abnormality (2) Pericardial effusion Status: Acute Problem Text: 12/02/18: ECHO performed yesterday. Continue with current regimen ECHO 12/01/18: IMPRESSION: 1. Moderate global left ventricular systolic dysfunction with global hypokinesis. Left ventricular diastolic function appeared to be normal. 2. Aortic valve sclerosis with trace aortic regurgitation but no aortic stenosis. 3. Mitral annulus calcification with mild to moderate mitral regurgitation. 4. Mild tricuspid regurgitation with mild pulmonary hypertension. 5. Mild pulmonic regurgitation. 6. Small pericardial effusion noted, no evidence of cardiac tamponade. Significant right pleural effusion also noted. 12/01/18: This is felt to be secondary to malignancy. Likely 2/2 malignancy. dyspnea with non-productive cough. Pt reported lower extremities edema since d/c home last hospital visit but reported edema has been improving; cont home med Lasix and Spironolactone. (3) Adenocarcinoma of lung, stage 4 Status: Chronic Problem Text: 12/03/18: Palliative chemotherapy started yesterday. Oncology to follow 12/02/18: Dr. Taylor consulted yesterday. Patient with stage IV poorly differentiated adenocarcinoma of lung, driver helper mutation negative, PD-L1 low. He is status post mediastinal radiation now with evidence of progression including recurrent right pleural effusion, new right psoas mass, new mesenteric lymphadenopathy. RECOMMENDATION: 1. Folic acid 1 mg daily throughout the course of chemotherapy. 2. B12 will be repeated every three cycles. 3. Would make sure Mr. Wu gets through the first several days of chemotherapy before discharging from hospital given his multiple prior complications in the last few months. 4. Will follow. Primary lung adenocarcinoma. S/p pallative radiation as it threatened SVC. No obvious pleortha noted. Pt reported that he was scheduled to start chemo this ; likely start chemo after the chest tube (4) Elevated troponin Status: Resolved Problem Text: 12/01/18: down to 0.16 elevated trop 0.19>0.02 likely 2/2 to pleural effusion; cannot r/o ACS at this point but pt denies chest pain only pleuritic chest pain during inspiration at substernal region. Repeat cardiac marker Q8H. (5) COPD (chronic obstructive pulmonary disease) Status: Chronic Response to Treatment: Stable Problem Text: 12/01/18:Nebs treatments Prior PFT showed obstructive pattern. Neb treatment and maintain ox 88-92%. Cont home steroid and cont to monitor the pt (6) Type 2 diabetes mellitus Status: Chronic Response to Treatment: Stable Problem Text: Pt reported that he was prescribed insulin but not using it at home. FSBS ACHS and sliding scale insulin; hypoglycemia protocol Plan/VTE VTE Prophylaxis Ordered?: Yes (heparin SQ) Plan Family Medicine Attending Note: I saw and examined Mr. Wu, discussed with Jose Ruff DNP. Agree with her note as documented. He reports to me is having a bit more problem with pain. I communicated with Dr. Garner and is started him on C laritin. Apparently Claritin for 4-5 days after a G-CSF medication does decrease bone pain may be related to taking the bone marrow into gear. We will continue to monitor. The patient is beginning to become anxious for discharge and is asking about tomorrow. 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, I&O, 24H, Fishbone Vital Signs/I&O Vital Signs Date Time Temp Pulse Resp B/P (MAP) Pulse Ox O2 Delivery O2 Flow Rate FiO2 12/03/18 09:51 16 12/03/18 07:58 97.9 118 114/61 (78) 100 12/02/18 10:30 Room Air 12/01/18 20:00 2.0 12/01/18 08:54 25 I&O- Last 24 Hours up to 6 AM 12/03/18 06:00 Intake Total 2156 ml Output Total 2100 ml Balance 56 ml Laboratory Data 24H LABS Laboratory Tests 2 12/03/18 09:55: Immature Granulocyte % (Auto) 0.8, White Blood Count 15.6H, Red Blood Count 3.55L, Hemoglobin 9.9L, Hematocrit 33.6L, Mean Corpuscular Volume 94.6, Mean Corpuscular Hemoglobin 27.9, Mean Corpuscular Hemoglobin Concent 29.5L, Red Cell Distribution Width 18.6H, Platelet Count 274, Neutrophils (%) (Auto) 94.3H, Lymphocytes (%) (Auto) 1.1L, Monocytes (%) (Auto) 3.7, Eosinophils (%) (Auto) 0.0, Basophils (%) (Auto) 0.1, Neutrophils # (Auto) 14.7H, Lymphocytes # (Auto) 0.2L, Monocytes # (Auto) 0.6, Eosinophils # (Auto) 0.0, Basophils # (Auto) 0.0, Nucleated Red Blood Cells % (auto) 0.1H, Anion Gap 6L, Glomerular Filtration Rate > 60.0, Blood Urea Nitrogen 13, Creatinine 0.47L, Sodium Level 136, Potassium Level 4.2, Chloride Level 99, Carbon Dioxide Level 31, Calcium Level 8.6, Aspartate Amino Transf (AST/SGOT) 14, Alanine Aminotransferase (ALT/SGPT) 17, Alkaline Phosphatase 117, Total Bilirubin 0.2, Total Protein 6.9, Albumin 1 .4L, Albumin/Globulin Ratio 0.25L CBC/BMP Laboratory Tests 12/03/18 09:55 Red Blood Count 3.55 L, Mean Corpuscular Volume 94.6, Mean Corpuscular Hemoglobin 27.9, Mean Corpuscular Hemoglobin Concent 29.5 L, Red Cell Distribution Width 18.6 H, Neutrophils (%) (Auto) 94.3 H, Lymphocytes (%) (Auto) 1.1 L, Monocytes (%) (Auto) 3.7, Eosinophils (%) (Auto) 0.0, Basophils (%) (Auto) 0.1, Neutrophils # (Auto) 14.7 H, Lymphocytes # (Auto) 0.2 L, Monocytes # (Auto) 0.6, Eosinophils # (Auto) 0.0, Basophils # (Auto) 0.0, Calcium Level 8.6, Aspartate Amino Transf (AST/SGOT) 14, Alanine Aminotransferase (ALT/SGPT) 17, Alkaline Phosphatase 117, Total Bilirubin 0.2, Total Protein 6.9, Albumin 1.4 L Microbiology Microbiology 11/30/18 Blood Culture - Preliminary, Resulted No Growth after 48 hours. All Specime... 11/30/18 Blood Culture - Preliminary, Resulted No Growth after 48 hours. All Specime... 12/01/18 Gram Stain - Final, Complete 12/01/18 Anaerobic Culture - Final, Complete 12/01/18 Body Fluid Culture - Final, Complete 12/01/18 Acid Fast Stain, Received Pending 12/01/18 Mycobacterial Culture, Received Pending 12/01/18 Fungal Smear, Received Pending 12/01/18 Fungal Culture, Received Pending JOSE RUFF December 03, 2018 11:00 Clinton Loza MD December 05, 2018 23:39
--- NOTE | 2018-12-03 15:42 | IPN ---
DATE: 12/02/2018 Mr. Wu has just started his inpatient chemotherapy today. He was drained of 1300 mL from the PleurX catheter early this morning. His chest x-ray shows his lung fully expanded to the chest wall and there is no residual pleural fluid. He states that he is breathing like a "champ." He is certainly much improved than he was prior to the PleurX catheter placement. His vital signs show a maximum temperature (t-max) of 98.6 with a heart rate that ranges between 110 and 122 in a sinus rhythm, respiratory rate of 16 to 22 without the use of accessory muscles. He is 95 to 100% saturated on room air. Heart rate ranges between 122 and 110 in a sinus rhythm. Blood pressure ranging between 113/82 to 96/52. His intake and output the past 24 hours has been recorded as 1750 in and 1375 out for a positivity of 385 mL. This does not count the 1300 mL that was removed this morning. Weight today is 73.7 kg compared to 70.5 kg yesterday. PHYSICAL EXAMINATION: LUNGS: His lungs show normal vesicular sounds with some faint crackles during late inspiration on the right side at the base. Percussion note is full to the diaphragm. CARDIAC EXAM: Without murmurs, clicks, gallops or rubs. I cannot feel his point of maximum impulse (PMI). S1, S2 are normal. ABDOMEN: Soft, nontender. Bowel sounds positive. There is no hepatomegaly. No costovertebral angle tenderness. EXTREMITIES: 1+ pretibial edema. No calf tenderness. No differential swelling of the upper extremities. His edema is more today than it was yesterday. NECK: Supple. There is no jugular venous distention. No subcutaneous emphysema. Trachea is midline. MOUTH: Shows his mucous membranes to be pink and moist. Lips and commissures without lesions. There is no thrush. EYES: Show his pupils to be equal and reactive. Extraocular motion intact. Sclerae anicteric. NEUROLOGIC: Shows II through XII intact with gross motor and gross sensation intact. Gait is not tested. PSYCHIATRIC: Shows him to be awake and alert, oriented times three with appropriate mood and affect and conversational. His white count today is 12.2 with a hemoglobin and hematocrit of 8.8 and 13.5, respectively. Platelet count is 232. Differential shows 89% neutrophils, 2% lymphocytes, 7% monocytes. There are no immature forms and no toxic granulations. His chemistries show normal electrolytes with a BUN and creatinine of 13 and 0.34. Calcium is 7.5 with a corresponding albumin of 1.3. AST and ALT are normal. His chest x-ray is as discussed above and shows his lung fully expanded to the chest wall with sharp costophrenic angles after removal of the 1300 mL of fluid. IMPRESSION: 1. 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 2. 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 3. Recurrent right pleural effusion addressed with a PleurX catheter. 4. Pericardial effusion, stable. 5. Chronic obstructive pulmonary disease (COPD). 6. Diabetes. 7. Left upper lobe lingular infiltrate. 8. Expanding mediastinal paratracheal tumor with what looks to be with a necrotic center on CT scan with compression of the vena cava but not obstruction. PLAN/DISCUSSION: We will keep him drained every day. I am very grateful for the amount of fluid that we got out today, as I only got 750 mL when I first placed the catheter.
--- NOTE | 2018-12-03 16:38 | IPN ---
DATE: 12/03/2018 Mr. Wu is doing quite well after his chemotherapy yesterday. He is breathing well. He has not yet ambulated the halls today. His vital signs show a maximum temperature (t-max) of 99.0 with a heart rate that ranges between 118 to 120 in a sinus rhythm, respiratory rate of 16 to 19 without the use of accessory muscles. He is 100% saturated on room air. Blood pressure ranging between 145/82 to 106/75. His intake and output the past 24 hours has been recorded as 2256 in and 1900 out for a positivity of 356 mL. That includes 1300 mL removed from the PleurX yesterday. He had 350 mL removed this morning. His weight today is 73.0 kg compared to 73.7 kg yesterday. PHYSICAL EXAMINATION: LUNGS: His lungs show normal vesicular sounds without wheeze, rhonchi or rales. CARDIAC EXAM: Without murmurs, clicks, gallops or rubs. I cannot feel his point of maximum impulse (PMI). S1, S2 are normal. ABDOMEN: Soft, nontender. Bowel sounds positive. There is no hepatomegaly. No costovertebral angle tenderness. EXTREMITIES: Markedly increased pretibial edema and ankle edema. This is much greater today than yesterday and certainly more than on admission. There is no differential swelling of the upper extremities. SKIN: Warm, dry and perfused without cyanosis or mottling, including that of the nail beds and knees. NECK: Supple. There is no jugular venous distention. No subcutaneous emphysema. Trachea is midline. MOUTH: Shows his mucous membranes to be pink and moist. Lips and commissures without lesions. There is no thrush. EYES: Show his pupils to be equal and reactive. Extraocular motion intact. Sclerae anicteric. NEUROLOGIC: Shows II through XII intact with gross motor and gross sensation intact. Gait is not tested. PSYCHIATRIC: Shows him to be awake and alert, oriented times three with appropriate mood and affect and conversational. His white count today is 15.6, probably in response to Neulasta. Hemoglobin and hematocrit are 9.9 and 33.6. Platelet count is 274 and stable. Differential shows 94% neutrophils, 1% lymphocytes, 3% monocytes. There are no immature forms and no toxic granulations. His electrolytes are normal with a BUN and creatinine of 13 and 0.47 with a glucose of 212 and a calcium 8.6. His albumin is 1.4. Microbiology did not show any organisms in the pleural fluid. There is no aerobic growth. Pathology cell block is positive for malignancy. The fluid pH is 7.58 with a glucose of 153 and LDH of 434 with a corresponding serum LDH of 251 and a total protein of 3.6 with a corresponding total protein of 6.2. This certainly makes it a mildly exudative malignant pleural effusion. His chest x-ray today shows his lung fully expanded to the chest wall. Costophrenic angles are sharp and I see no infiltrates in the posterior aspect on the lateral film. His echocardiogram had depressed global left ventricular systolic function with an estimated systolic ejection fraction of 35%. There is no evidence of compression with the pericardial effusion. He has mild to moderate mitral regurgitation and mild tricuspid regurgitation. IMPRESSION: 1. 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 2. 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 3. Recurrent right pleural effusion addressed with a PleurX catheter. 4. Pericardial effusion, noncompressive. 5. Chronic obstructive pulmonary disease (COPD). 6. Diabetes. 7. Left upper lobe infiltrate. 8. Global systolic dysfunction with an ejection fraction of 35%. PLAN/DISCUSSION: We will change his catheter drainage to every other day. I have given him 40 mg of Lasix IV every day. I think that he is going to have to be diuresed secondary to his global systolic dysfunction. I do not think that the tumor is manifesting superior vena cava syndrome.
[2018-12-03] MEDS ORDERED: LORATADINE 10 MG TAB PO ONE (17:00)
[2018-12-03] MEDS ORDERED: METOPROLOL TART 25 MG TABLET PO PRN (22:15)
[2018-12-04] VITALS (7 sets, daily range): BP systolic 96–110; BP diastolic 58–84
[2018-12-04] MEDS: PERCOCET 5MG/325MG TAB PO PRN ×5 (03:25→21:03)
[2018-12-04] MEDS: HEPARIN SOD (PORCINE) 5000 UNITS/ML VIAL SQ SCH ×3 (05:14→21:01)
[2018-12-04] MEDS: SLF 3 ML SYR IV SCH ×3 (05:14→21:04)
[2018-12-04 05:33] LABS: HEMATOCRIT 29.1 % (42.0-52.0); HEMOGLOBIN 8.6 g/dl (13.5-17.5); MEAN CORPUSCULAR HGB CONC 29.6 g/dl (32.0-36.5); MEAN CORPUSCULAR VOLUME 94.8 fl (80.0-96.0); PLATELET COUNT, AUTOMATED 236 10^3/uL (150-450); RED BLOOD COUNT 3.07 10^6/uL (4.30-6.10); WHITE BLOOD COUNT 27.8 10^3/uL (4.0-10.0)
[2018-12-04 05:52] LABS: ALBUMIN 1.2 GM/DL (3.2-5.2); BLOOD UREA NITROGEN 15 MG/DL (7-18); CALCIUM LEVEL 7.8 MG/DL (8.5-10.1); CARBON DIOXIDE LEVEL 30 MEQ/L (21-32); CHLORIDE LEVEL 100 MEQ/L (98-107); CREATININE FOR GFR 0.49 MG/DL (0.70-1.30); GLOMERULAR FILTRATION RATE > 60.0 (>56); GLUCOSE, FASTING 221 MG/DL (70-100); PHOSPHORUS LEVEL 3.3 MG/DL (2.5-4.9); POTASSIUM SERUM 4.3 MEQ/L (3.5-5.1); SODIUM LEVEL 136 MEQ/L (136-145)
[2018-12-04 06:27] LABS: LYMPHOCYTES 1 % (16-52); NEUTROPHILS 85 % (35-75)
[2018-12-04 06:28] LABS: ANISOCYTOSIS 1+; HYPOCHROMASIA 1+; PLATELET ESTIMATE NORMAL (NORMAL); POIKILOCYTOSIS 1+
[2018-12-04] MEDS: HumaLOG INSULIN (NovoLOG) PER UNIT SC SCH ×4 (07:30→21:00)
[2018-12-04] MEDS: SENNA 8.6 MG TAB (SENOKOT) PO PRN (08:45)
[2018-12-04] MEDS: OMEPRAZOLE 20 MG CAP PO SCH (08:46)
[2018-12-04] MEDS: SPIRONOLACTONE 25 MG TAB PO SCH (08:46)
[2018-12-04] MEDS: LORATADINE 10 MG TAB PO SCH (08:46)
[2018-12-04] MEDS: FOLIC ACID 1 MG TAB PO SCH (08:46)
--- NOTE | 2018-12-04 09:24 | REP ---
HISTORY: Pleural effusion. COMPARISON: Multiple, the latest 12/03/2018. Patchy lung field opacities are noted, status quo. Bilateral CP angle blunting, status quo. Mild cardiomegaly unchanged. No new abnormal opacities. No change in the osseous structures. IMPRESSION: No significant change from the prior exam. Electronically Signed by Livan Spencer DO 12/04/2018 10:32 A
[2018-12-04] MEDS: MOM 30ML SUSPENSION UDC PO SCH (09:49)
[2018-12-04] MEDS: FUROSEMIDE 20 MG TAB PO SCH (09:49)
[2018-12-04] MEDS: FUROSEMIDE 40 MG/4 ML VIAL (J1940) IV SCH (09:49)
--- NOTE | 2018-12-04 10:04 | IPN ---
DATE: 12/04/2018 Mr. Wu's major complaint is one of constipation. He is on Senna and I will increase is bowel care. His extremities are still quite edematous. There is a question of whether his Intake and output (I and Os) are being kept accurately. His vital signs show a T-max of 99.4 with a heart rate that ranges between 120 and 142. He was given Lopressor last night. Respiratory rate is 18 to 22 without the use of accessory muscles and he is 93% saturated on 3 liters nasal cannula. Blood pressure is ranging between 103/66 to 110/84. His intake and output over the past 24 hours has been recorded as 1280 in and 750 out for a positivity of 530 mL. It is unclear whether all of his urine output has been collected. Weight today is 72.1 kg compared to 73 kg yesterday. On physical examination, he has some crackles in the right lower base. Left has normal vesicular sounds. Percussion notes are full to the diaphragm. Cardiac exam is without murmurs, clicks, gallops or rubs. I cannot feel his point of maximal impulse (PMI). S1 and S2 are normal. Abdomen is soft and nontender. Bowel sounds are positive. There is no hepatomegaly. No costovertebral angle (CVA) tenderness. Extremities show now 3 to 4 + pretibial edema. No calf tenderness. No differential swelling of the upper extremities. Skin is warm, dry and perfused without cyanosis or mottling including that of the nail beds and the knees. Neck is supple. There is no jugular venous distention. No subcutaneous emphysema. Trachea is midline. Mouth shows his mucous membranes to be pink and moist. Lips and commissures without lesions. No thrush. Eyes show his pupils to be equal and reactive. Extraocular muscles intact. Sclera anicteric. Neuro shows II through XII intact. Gross motor and gross sensation intact. Gait is not tested. Psychiatric shows him to be awake, alert and oriented times three with appropriate mood, affect and conversational. His white count today is up to 27.8 secondary to the Neulasta. Hemoglobin and hematocrit are 8.6 and 29.1, down from 9.9 and 33.6. This could be secondary to hemodilution. Platelet count is 236 and stable and differential shows 85% neutrophils, 14% bands and 1% lymphocytes. The bandemia is probably also secondary to the Neulasta. His chemistries show normal electrolytes with BUN and creatinine of 15 and 0.49, unchanged from yesterday with a glucose of 221. Calcium is 7.8 and his albumin is 1.2. Phosphorous is 3.3. His chest x-ray shows his lung fully expanded to the chest wall with sharp costophrenic angles. PleurX catheter has migrated to the costophrenic angle. IMPRESSION: 1. Recurrent malignant right pleural effusion. 2. 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 3. Status post superior vena cava syndrome earlier this year with subsequent radiation in August. 4. Pericardial effusion, noncompressive. 5. COPD. 6. Diabetes. 7. Left upper lobe infiltrate. 8. Global systolic dysfunction with an ejection fraction of 35%, possibly congestive heart failure (CHF) with associated edema. 9. Hypoalbuminemia. PLAN AND DISCUSSION: As far as his pleural catheter is concerned and his pleural effusion, I will have him drained tomorrow. His chest x-ray shows no fluid accumulation. I have asked the nursing staff to more accurately assess his I and Os. He is extremely hypoalbuminemic. However, his calcium corrects to 10.0 which is just below the upper limit of normal at 10.1 in this institution. He is bordering on hypercalcemia. That calculation of course assumes a normal albumin of 4.0. As noted above I will start him on more aggressive bowel care. I suggest we continue the IV and oral diuresis. I will not yet order a repeat echo although I do have concerns that his pericardial effusion could potentially be greater, particularly with the tachycardia yesterday and with his increasing edema. It was small and noncompressive on the last echo.
--- NOTE | 2018-12-04 16:34 | IPNPDOC ---
Subjective Date Seen The patient was seen on 12/04/18. Subjective Chief Complaint/HPI Seen today, with daughter at bedside. He states that he is doing better today, and his daughter feels that his stamina is improved. States pain is controlled, dyspnea improved. He continues to have significant edema in his bilat LE, and his daughter states that this has been present for weeks now. General: Reports: Fatigue, Malaise Constitutional: Denies: Chills, Fever Pulmonary: Reports: Dyspnea (improved); Denies: Cough Cardiovascular: Denies: Chest Pain Gastrointestinal: Denies: Nausea, Vomiting, Diarrhea, Constipation Objective Physical Examination General Exam: Positive: Alert, Cooperative, No Acute Distress Eye Exam: Positive: Conjunctiva & lids normal; Negative: Sclera icteric ENT Exam: Positive: Atraumatic, Mucous membr. moist/pink Neck Exam: Positive: Supple Chest Exam: Positive: Diminished (diminshed lung sounds at base b/l); Negative: Rhonchi, Wheezing Heart Exam: Positive: Tachycardic, Regular Rhythm, Normal S1, Normal S2; Negative: Murmurs Abdomen Exam: Positive: Normal bowel sounds, Soft; Negative: Tenderness Extremity Exam: Positive: Edema (3+ pitting edema in right ankle; 2+ pitting edema in left ankle), Normal pulses Neuro Exam: Positive: Sensation Intact; Negative: Strength at 5/5 X4 ext (Limited by SOB) Psych Exam: Positive: Mental status NL, Anxiety, Memory Intact, Oriented x 3 A-FIB/CHADSVASC A-FIB History Current/History of A-Fib/PAF?: No Assessment /Plan Problems (1) Adenocarcinoma of lung, stage 4 Status: Chronic Problem Text: 12/04: Monitoring in hospital after initiation of palliative chem o. He is tolerating it fairly well at this time. 12/03/18: Palliative chemotherapy started yesterday. Oncology to follow 12/02/18: Dr. Taylor consulted yesterday. Patient with stage IV poorly differe ntiated adenocarcinoma of lung, [employer] mutation negative, PD-L1 low. He is status post mediastinal radiation now with evidence of progression including recurrent right pleural effusion, new right psoas mass, new mesenteric lymphadenopathy. RECOMMENDATION: 1. Folic acid 1 mg daily throughout the course of chemotherapy. 2. B12 will be repeated every three cycles. 3. Would make sure Mr. Wu gets through the first several days of chemotherapy before discharging from hospital given his multiple prior complications in the last few months. 4. Will follow. Primary lung adenocarcinoma. S/p pallative radiation as it threatened SVC. No obvious pleortha noted. Pt reported that he was scheduled to start chemo this ; likely start chemo after the chest tube (2) Malignant pleural effusion Status: Acute Problem Specific Plan: Consult Specialist Problem Text: 12/03/18: Drained this morning, per family member very small amount. WBC 15.1. BC negative x 48 hours. Afebrile. Pleural fluid anaerobic cul ture no growth. Acid fast, mycobacterial culture, fungal smear and fungal culture pending. This is being managed by Dr. Qiu Chest x-ray 12/03/18: Findings: A right-sided Pleurx catheter is seen in the posterior lung gutter terminating medially. The previously noted right pleural effusion is evacuated. There is some fissural thickening visible on the right. Ill-defined nodules are seen dispersed in the right lung. There is a linear opacity at adjacent to the aortic knob in the left upper lobe and there is interstitial infiltrate in a perihilar distribution on the left as well unchanged. 12/02/18: PleurX catheter inserted yesterday. Approx 1300cc removed this morning. Patient scheduled for chest x-ray this morning. Chest CT 12/01/18: Right-sided PleurX catheter. Bilateral pleural effusions. Increased pericardial effusion now moderate. Bulky mediastinal lymphadenopathy and upper abdominal lymphadenopathy. There is a small nodule in the right adrenal gland as well. 12/01/18: Dr. Elkins consulted. Pleurex cath placed at bedside with 750ml drained. Per Dr. Qiu repeat ECHO and CT scan ordered Dyspnea; pt currently sat around 90% on 2L NC. Large right pleural effusion and small left pleural effusion shown on CT; both increased in size. Dr. Qiu will be inserting chest tube placement; fluid cytology and analysis with pleurex cath in place for output measurement. -PERCOCET prn PAIN -If pt still tachy and hypoxic once pleural effusion resolved/ ro PE. -Pt reported LUQ abdominal pain which is likely 2/2 pleuritis from pleural effusion; liver panel ordered to r/o GI abnormality (3) Pericardial effusion Status: Acute Problem Text: 12/02/18: ECHO performed yesterday. Continue with current regimen ECHO 12/01/18: IMPRESSION: 1. Moderate global left ventricular systolic dysfunction with global hypokinesis. Left ventricular diastolic function appeared to be normal. 2. Aortic valve sclerosis with trace aortic regurgitation but no aortic stenosis. 3. Mitral annulus calcification with mild to moderate mitral regurgitation. 4. Mild tricuspid regurgitation with mild pulmonary hypertension. 5. Mild pulmonic regurgitation. 6. Small pericardial effusion noted, no evidence of cardiac tamponade. Significant right pleural effusion also noted. 12/01/18: This is felt to be secondary to malignancy. Likely 2/2 malignancy. dyspnea with non-productive cough. Pt reported lower extremities edema since d/c home last hospital visit but reported edema has been improving; cont home med Lasix and Spironolactone. (4) COPD (chronic obstructive pulmonary disease) Status: Chronic Response to Treatment: Stable Problem Text: 12/01/18:Nebs treatments Prior PFT showed obstructive pattern. Neb treatment and maintain ox 88-92%. Cont home steroid and cont to monitor the pt (5) Type 2 diabetes mellitus Status: Chronic Response to Treatment: Stable Problem Text: Pt reported that he was prescribed insulin but not using it at home. FSBS ACHS and sliding scale insulin; hypoglycemia protocol (6) Elevated troponin Status: Resolved Problem Text: 12/01/18: down to 0.16 elevated trop 0.19>0.02 likely 2/2 to pleural effusion; cannot r/o ACS at this point but pt denies chest pain only pleuritic chest pain during inspiration at substernal region. Repeat cardiac marker Q8H. Plan/VTE VTE Prophylaxis Ordered?: Yes (heparin SQ) VS, I&O, 24H, [facility] Vital Signs/I&O Vital Signs Date Time Temp Pulse Resp B/P (MAP) Pulse Ox O2 Delivery O2 Flow Rate FiO2 12/04/18 12:10 20 12/04/18 12:00 98.7 132 104/78 (87) 97 12/03/18 23:30 3.0 24 12/02/18 10:30 Room Air I&O- Last 24 Hours up to 6 AM 12/04/18 06:00 Intake Total 1080 ml Output Total 1000 ml Balance 80 ml Laboratory Data 24H LABS Laboratory Tests 2 12/04/18 05:13: White Blood Count 27.8H, Red Blood Count 3.07L, Hemoglobin 8.6L, Hematocrit 29.1L, Mean Corpuscular Volume 94.8, Mean Corpuscular Hemoglobin 28.0, Mean Corpuscular Hemoglobin Concent 29.6L, Red Cell Distribution Width 19.0H, Platelet Count 236, Neutrophils # (Auto) , Lymphocytes # (Auto) , Nucleated Red Blood Cells % (auto) 0.0, Neutrophils 85H, Band Neutrophils 14H, Lymphocytes (Manual) 1L, Platelet Estimate NORMAL, Hypochromasia 1+, Poikilocytosis 1+, Anisocytosis 1+, Acanthocytes , Blood Urea Nitrogen 15, Creatinine 0.49L, Sodium Level 136, Potassium Level 4.3, Chloride Level 100, Carbon Dioxide Level 30, Anion Gap 6L, Glomerular Filtration Rate > 60.0, Calcium Level 7.8L, Phosphorus Level 3.3, Albumin 1.2L CBC/BMP Laboratory Tests 12/04/18 05:13 Red Blood Count 3.07 L, Mean Corpuscular Volume 94.8, Mean Corpuscular Hemoglobin 28.0, Mean Corpuscular Hemoglobin Concent 29.6 L, Red Cell Distribution Width 19.0 H, Neutrophils # (Auto) , Lymphocytes # (Auto) , Anion Gap 6 L Microbiology Microbiology 11/30/18 Blood Culture - Preliminary, Resulted No Growth after 72 hours. All specime... 11/30/18 Blood Culture - Preliminary, Resulted No Growth after 72 hours. All specime... 12/01/18 Gram Stain - Final, Complete 12/01/18 Anaerobic Culture - Final, Complete 12/01/18 Body Fluid Culture - Final, Complete 12/01/18 Acid Fast Stain, Received Pending 12/01/18 Mycobacterial Culture, Received Pending 12/01/18 Fungal Smear, Received Pending 12/01/18 Fungal Culture, Received Pending CLAUDIO CHICAS DO December 04, 2018 16:34
[2018-12-05] MEDS: PERCOCET 5MG/325MG TAB PO PRN ×7 (00:13→23:34)
[2018-12-05 04:00] VITALS: BP 104/61
[2018-12-05 05:20] LABS: HEMATOCRIT 28.5 % (42.0-52.0); HEMOGLOBIN 8.4 g/dl (13.5-17.5); MEAN CORPUSCULAR HEMOGLOBIN 26.8 pg (27.0-33.0); MEAN CORPUSCULAR HGB CONC 29.5 g/dl (32.0-36.5); MEAN CORPUSCULAR VOLUME 90.8 fl (80.0-96.0); PLATELET COUNT, AUTOMATED 233 10^3/uL (150-450); RED BLOOD COUNT 3.14 10^6/uL (4.30-6.10); WHITE BLOOD COUNT 24.2 10^3/uL (4.0-10.0)
[2018-12-05] MEDS: HEPARIN SOD (PORCINE) 5000 UNITS/ML VIAL SQ SCH ×3 (05:49→21:36)
[2018-12-05] MEDS: SLF 3 ML SYR IV SCH ×3 (05:49→21:35)
[2018-12-05 05:51] LABS: ALBUMIN 1.2 GM/DL (3.2-5.2); ALT/SGPT 19 U/L (12-78); BILIRUBIN,TOTAL 0.3 MG/DL (0.2-1.0); BLOOD UREA NITROGEN 13 MG/DL (7-18); CALCIUM LEVEL 8.2 MG/DL (8.5-10.1); CARBON DIOXIDE LEVEL 31 MEQ/L (21-32); CHLORIDE LEVEL 97 MEQ/L (98-107); CREATININE FOR GFR 0.46 MG/DL (0.70-1.30); GLOMERULAR FILTRATION RATE > 60.0 (>56); GLUCOSE, FASTING 216 MG/DL (70-100); MAGNESIUM LEVEL 1.7 MG/DL (1.8-2.4); POTASSIUM SERUM 4.6 MEQ/L (3.5-5.1); SODIUM LEVEL 134 MEQ/L (136-145); TOTAL PROTEIN 6.1 GM/DL (6.4-8.2)
[2018-12-05] MEDS ORDERED: MAG SULF 1GM/100ML (MAG RUN) 1 GM in APPROPRIATE DILUENT 1 EA IV ONE (06:45)
[2018-12-05] MEDS: HumaLOG INSULIN (NovoLOG) PER UNIT SC SCH ×4 (07:30→21:36)
[2018-12-05 08:00] VITALS: BP 92/59
[2018-12-05] MEDS: FUROSEMIDE 20 MG TAB PO SCH (08:43)
[2018-12-05] MEDS: OMEPRAZOLE 20 MG CAP PO SCH (08:43)
[2018-12-05] MEDS: FOLIC ACID 1 MG TAB PO SCH (08:43)
[2018-12-05] MEDS: LORATADINE 10 MG TAB PO SCH (08:43)
[2018-12-05] MEDS: SPIRONOLACTONE 25 MG TAB PO SCH (08:44)
[2018-12-05] MEDS: FUROSEMIDE 40 MG/4 ML VIAL (J1940) IV SCH (08:45)
[2018-12-05] MEDS: MOM 30ML SUSPENSION UDC PO SCH (08:45)
[2018-12-05] MEDS ORDERED: SENNA 8.6 MG TAB (SENOKOT) PO PRN (09:00)
[2018-12-05] MEDS ORDERED: MIRALAX *UNIT DOSE* 17GM PACKET PO PRN (09:00)
[2018-12-05] MEDS: BISACODYL 10 MG SUPP PR PRN (09:21)
--- NOTE | 2018-12-05 09:59 | IPN ---
DATE: 12/05/2018 Mr. Wu was drained for 150 mL from his PleurX catheter today. He is breathing well. He had good urine output in response to his Lasix yesterday. His weight is also down. He still has significant 4+ pretibial edema however. His vital signs show a maximum temperature (Tmax) of 99.1 with a heart rate that ranges between 133-119 in sinus tachycardia, with a respiratory rate of 18-20 without the use of accessory muscles, who is 96-93% saturated on room air. Blood pressure is ranging between 104/61-92/59. His intake and output for the past 24 hours has been recorded as 1970 in and 2625 out for a negativity of 655 mL. He put out 2600 mL in urine output and his weight today is 71.5 kg compared to 72.1 kg yesterday and 73 the day before. On physical examination, his lungs show normal vesicular sounds without wheezes, rhonchi or rales. Percussion note is full to the diaphragm. Cardiac exam is without murmurs, clicks, gallops or rubs, although he is tachycardic. I cannot feel his point of maximal impulse (PMI). S1, S2 are normal. Abdomen is soft but distended and tympanitic. Bowel sounds are positive. There is no costovertebral angle (CVA) tenderness. Extremities show 4+ pretibial edema. No calf tenderness. No differential swelling of the upper extremities. Skin is warm, dry and perfused, without cyanosis or mottling including that of the nail beds and the knees. Neck is supple. There is no jugular venous distention. No subcutaneous emphysema. Trachea is midline. Mouth shows the mucous membranes to be pink and moist. Lips and commissures without lesions. There is no thrush. Eyes show his pupils to be equal and reactive. Extraocular muscles intact. Sclerae anicteric. Neurologic shows II-XII intact along with gross motor and gross sensation intact. Gait is not tested. Psychiatric shows him to be awake, alert, oriented times three with appropriate mood, affect and conversational. His white count today is 24.2 with hemoglobin and hematocrit of 8.4 and 28.5, slightly down from yesterday's of 8.6 and 29.1. Platelet count is 233. There is no differential on him today. Chemistries show marginally low sodium of 134. BUN and creatinine are 13 and 0.46 with a glucose of 216 and a calcium of 8.2. His albumin is still 1.2 and with his calcium today of 8.2 he corrects to make him hypercalcemic with a calculated calcium of 10.4. His chest x-ray today shows his lung fully expanded to the chest wall. PleurX catheter is in good place in the posterior costophrenic angle. The left side lingular infiltrate is still present. IMPRESSION: 1. Recurrent malignant right pleural effusion addressed with a PleurX catheter. 2. 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 3. Status post superior vena cava syndrome earlier this year with subsequent radiation in August. 4. Pericardial effusion, noncompressive. 5. Chronic obstructive pulmonary disease (COPD). 6. Diabetes. 7. Left upper lobe infiltrate. 8. Global systolic dysfunction with ejection fraction 35%. 9. Hypoalbuminemia. 10. Hypercalcemia. PLAN AND DISCUSSION: I will continue his Lasix both by mouth and IV. He is taking good oral intake. He has not yet had a bowel movement. I have ordered stool softeners and a suppository. He is balking at a suppository. He is now hypercalcemic. I am surprised that he does not have compression stockings on as he is at risk for a deep venous thrombosis (DVT) and I will start this today. He is continuing on chemotherapy of Keytruda and pemetrexed and Carboplatin.
--- NOTE | 2018-12-05 10:02 | REP ---
HISTORY: Reassess. COMPARISON: Multiple, the latest yesterday. Cardiomediastinal silhouette and lung jones are unchanged. Patchy parenchymal opacities are seen bilaterally, status quo. There is a right-sided drainage tube in place which is stable. There is thickening of the fissures which is stable. IMPRESSION: No change. Electronically Signed by Livan Spencer DO 12/05/2018 10:22 A
[2018-12-05 12:00] VITALS: BP 105/64
[2018-12-05] MEDS: SENNA 8.6 MG TAB (SENOKOT) PO PRN (12:40)
--- NOTE | 2018-12-05 15:03 | IPNPDOC ---
Text Note Date of Service The patient was seen on 12/05/18. NOTE Subjective: Patient is a 68-year-old male with a PMHx of Stage 4 Advanced Right Lung Adenocarcinoma, NIDDM2 2/2 Dexamethasone use, COPD, Diastolic CHF, GERD who pr esented to the ER with complaints of SOB. Upon arrival to emergency room, patient had received imaging that was consistent with a large right-sided pleural effusion, small L sided pleural effusion and pericardial effusion. Dr. Qiu cardiothoracic surgery was consulted for drainage. Patient was admitted to family medicine service initially. Hospitalist service was called on 12/05/2018 after patient had an argument with provider about insulin / hyperglycemia management. Patient was seen and examined at the bedside. Daughter was present at the bedside. Patient reports some constipation and has not had a bowel movement and proximal 3 days. He denies nausea, vomiting. Denies any abdominal pain. Currently reports that his breathing is doing better. Still reports significant lower leg swelling. Reports a cough, however, has not had much expectoration. Objective: Vitals (See below) General: Lying in bed, no acute distress, comfortable, AAOx3 HEENT: NC, AT, very poor dentition CVS: RRR, +S1S2 Lungs: Fair air entry b/l, is not appear to have any wheezing, rhonchi or rales Abdomen: Soft, ND, NT Extremities: 3+ pitting edema bilaterally , - Calf tenderness Assessment and plan: Shortness of breath - likely 2/2 bilateral pleural effusion (R>L), less likely 2/2 pericardial effusion, possibly 2/2 decompensated systolic CHF - Clinically has noted improvement in his breathing; still reports a mild cough - not productive - Physical with no adventitious lung sounds; gross edema at b/l LE remains persistent - BNP elevated on admission - CT chest 11/30: The large right pleural effusion has increased in size. The small left pleural effusion has also increased in size. There is a pericardial effusion that has increased in size. There is a new left paramediastinal infiltrate extending into the left upper lobe and left lower lobe. There are new subsegmental patchy infiltrates in the right upper lobe and right middle lobe. There is compression atelectasis of the right lower lobe from the large right pleural effusion. - ECHO 12/01: Moderate LV systolic dysfunction, LV diastolic function normal, mild-moderate MR, mild TR with mild pulmonary HTN, mild pulmonic regurgitation, small pericardial effusion - no tamponade - CT chest 12/01: Right-sided PleurX catheter. Bilateral pleural effusions. Increased pericardial effusion now moderate. Bulky mediastinal lymphadenopathy and upper abdominal lymphadenopathy. There is a small nodule in the right adrenal gland as well. - CXR 12/05: Cardiomediastinal silhouette and lung jones are unchanged. Patchy parenchymal opacities are seen bilaterally, status quo. There is a right-sided drainage tube in place which is stable. There is thickening of the fissures which is stable. - 12/01 had Insertion of tunneled PleurX catheter right side with Dr. Qiu; 500 cc of fluid removed; cytology consistent with malignant effusion / cell block consistent with malignancy - Has remained negative fluid balance - c/w diuretic therapy; Has received Furosemide PO and IV this morning - c/w Fur osemide 20 daily / Spironolactone 25 daily Stage 4 Adenocarcinoma of Lung - Poorly differentiated adenocarcinoma of lung, patrol driver mutation negative, PD-L1 low - s/p mediastinal radiation now with evidence of progression including recurrent right pleural effusion, new right psoas mass, new mesenteric lymphadenopathy. - Patient is aware of his poor prognosis given his diagnosis of stage 4 cancer; is aware that this is the last stage without any curative options - Today (12/05) I have explained to him and his daughter with palliative chemotherapy means and this is for symptomatic control without curative intent - patient has expressed understanding - Patient has been on palliative chemotherapy while inpatient since 12/02 - Oncology has been on consult; Dr. Ashley Taylor will continue to follow him as an outpatient Elevated troponin - likely 2/2 demand ischemia / Type 2 NSTEMI - Patient has not experienced typical chest pain - Troponin levels have remained stable NIDDM2 with Hyperglycemia - likely 2/2 dexamethasone use - As an outpatient. He was about to start long-acting insulin after insurance approved - Described to patient why his blood sugars are elevated and what the complicati ons of such can be - patient has verbalized understanding - Advised that his diet should be limited in sugary items; however if he can't comply with this that we should continue to monitor blood glucose levels and provide adaquate coverage with insulin - Patient is agreeable to receive insulin - c/w ISS Leukocytosis - possibly 2/2 chemotherapy - ROS negative; patient remains afebrile - Hold off on antibiotic therapy - Oncology on consultation Normocytic anemia - Hg appears to remain stable - No evidence of blood loss Constipation - likely 2/2 opioid use - c/w Bowel regimen as ordered s/p SVC syndrome - s/p Palliative radiation COPD - no evidence of exacerbation - Prior PFT showed obstructive pattern - c/w inhaled therapy as ordered GERD - c/w Omeprazole DVT prophylaxis - c/w Heparin VS,Fishbone, I+O VS, Fishbone, I+O Laboratory Tests 12/05/18 05:06 Red Blood Count 3.14 L, Mean Corpuscular Volume 90.8, Mean Corpuscular Hemoglo bin 26.8 L, Mean Corpuscular Hemoglobin Concent 29.5 L, Red Cell Distribution Width 19.0 H, Calcium Level 8.2 L, Aspartate Amino Transf (AST/SGOT) 30, Alanine Aminotransferase (ALT/SGPT) 19, Alkaline Phosphatase 128 H, Total Bilirubin 0.3, Total Protein 6.1 L, Albumin 1.2 L Vital Signs Date Time Temp Pulse Resp B/P (MAP) Pulse Ox O2 Delivery O2 Flow Rate FiO2 12/05/18 13:11 20 12/05/18 08:00 99.1 120 92/59 (70) 96 12/03/18 23:30 3.0 24 12/02/18 10:30 Room Air I&O- Last 24 Hours up to 6 AM 12/05/18 06:00 Intake Total 1970 ml Output Total 3025 ml Balance -1055 ml KALPESH CUEVAS MD December 05, 2018 15:03
[2018-12-05 16:00] VITALS: BP 96/56
[2018-12-05] MEDS: ACETAMINOPHEN 500 MG TAB PO PRN (18:34)
[2018-12-05 20:00] VITALS: BP 102/68
[2018-12-05 23:59] VITALS: BP 102/64
[2018-12-06] MEDS: PERCOCET 5MG/325MG TAB PO PRN ×4 (03:21→14:37)
[2018-12-06] MEDS: MOM 30ML SUSPENSION UDC PO SCH (03:46)
[2018-12-06] MEDS: BISACODYL 10 MG SUPP PR PRN (03:49)
[2018-12-06 04:00] VITALS: BP 99/63
[2018-12-06] MEDS: HEPARIN SOD (PORCINE) 5000 UNITS/ML VIAL SQ SCH (06:14)
[2018-12-06] MEDS: SLF 3 ML SYR IV SCH (06:15)
--- NOTE | 2018-12-06 07:48 | REP ---
Clinical: Pleural effusion. Technique: PA and lateral. Comparison: 12/05/2018. Findings: Mediastinum and cardiac silhouette are stable. Diffuse bilateral air space disease is again appreciated. Chest tube at the right lung base remain stable. No significant effusion. No pneumothorax. Skeletal structures are intact. Impression: Continued evidence for multifocal airspace disease. Chest tube at the right base remain stable. No obvious effusion. Electronically Signed by Jose Dsouza MD 12/06/2018 07:39 A
[2018-12-06 07:52] LABS: HEMATOCRIT 28.4 % (42.0-52.0); HEMOGLOBIN 8.5 g/dl (13.5-17.5); MEAN CORPUSCULAR HEMOGLOBIN 27.9 pg (27.0-33.0); MEAN CORPUSCULAR HGB CONC 29.9 g/dl (32.0-36.5); MEAN CORPUSCULAR VOLUME 93.1 fl (80.0-96.0); PLATELET COUNT, AUTOMATED 172 10^3/uL (150-450); RED BLOOD COUNT 3.05 10^6/uL (4.30-6.10); WHITE BLOOD COUNT 14.9 10^3/uL (4.0-10.0)
[2018-12-06 08:07] VITALS: BP 107/55
[2018-12-06 08:12] LABS: BLOOD UREA NITROGEN 13 MG/DL (7-18); CALCIUM LEVEL 8.2 MG/DL (8.5-10.1); CARBON DIOXIDE LEVEL 33 MEQ/L (21-32); CHLORIDE LEVEL 95 MEQ/L (98-107); CREATININE FOR GFR 0.42 MG/DL (0.70-1.30); GLOMERULAR FILTRATION RATE > 60.0 (>56); GLUCOSE, FASTING 154 MG/DL (70-100); MAGNESIUM LEVEL 1.7 MG/DL (1.8-2.4); POTASSIUM SERUM 4.7 MEQ/L (3.5-5.1); SODIUM LEVEL 133 MEQ/L (136-145)
[2018-12-06] MEDS: SPIRONOLACTONE 25 MG TAB PO SCH (08:13)
[2018-12-06] MEDS: FUROSEMIDE 20 MG TAB PO SCH (08:14)
[2018-12-06] MEDS: LORATADINE 10 MG TAB PO SCH (08:14)
[2018-12-06] MEDS: OMEPRAZOLE 20 MG CAP PO SCH (08:14)
[2018-12-06] MEDS: FOLIC ACID 1 MG TAB PO SCH (08:14)
[2018-12-06] MEDS: FUROSEMIDE 40 MG/4 ML VIAL (J1940) IV SCH (08:14)
[2018-12-06 08:17] LABS: LYMPHOCYTES 2 % (16-52); NEUTROPHILS 97 % (35-75)
[2018-12-06 08:18] LABS: ANISOCYTOSIS 2+; HYPOCHROMASIA 1+; PLATELET ESTIMATE NORMAL (NORMAL)
[2018-12-06] MEDS: HumaLOG INSULIN (NovoLOG) PER UNIT SC SCH ×2 (09:25→12:00)
[2018-12-06] MEDS ORDERED: MIRA3350 PO (10:03)
[2018-12-06] MEDS ORDERED: FOLI1TAB11 PO (10:03)
[2018-12-06] MEDS ORDERED: SENN18TA PO (10:03)
[2018-12-06] MEDS ORDERED: FURO40TA2 PO (10:03)
[2018-12-06] MEDS: MAG SULF 1GM/100ML (MAG RUN) 1 GM in APPROPRIATE DILUENT 1 EA IV ONE ×2 (10:37→11:48)
[2018-12-06] MEDS ORDERED: MAGNESIUM OXIDE 400 MG TAB (MAG-OX) PO ONE (12:00)
[2018-12-06] MEDS ORDERED: OXYC1TAB23 PO (12:23)
[2018-12-06] MEDS ORDERED: METF500T13 PO (13:05)
--- NOTE | 2018-12-06 13:07 | DS.PDOC ---
Discharge Summary General Date of Admission November 30, 2018 at 16:50 Date of Discharge 12/06/2018 Discharge Summary PROCEDURES PERFORMED DURING STAY: Insertion of tunneled PleurX catheter right side on 12/01/[address] Qiu ADMITTING DIAGNOSES / DISCHARGE DIAGNOSES: Shortness of breath - likely 2/2 bilateral pleural effusion (R>L), less likely 2/2 pericardial effusion, possibly 2/2 decompensated systolic CHF Stage 4 Adenocarcinoma of Lung Elevated troponin - likely 2/2 demand ischemia / Type 2 NSTEMI NIDDM2 with Hyperglycemia - likely 2/2 dexamethasone use Leukocytosis - possibly 2/2 chemotherapy Normocytic anemia Constipation - likely 2/2 opioid use s/p SVC syndrome COPD GERD DVT prophylaxis COMPLICATIONS/CHIEF COMPLAINT: Shortness of breath HISTORY OF PRESENT ILLNESS: Patient is a 68-year-old male with a PMHx of Stage 4 Advanced Right Lung Adenocarcinoma, NIDDM2 2/2 Dexamethasone use, COPD, Diastolic CHF, GERD who presented to the ER with complaints of SOB. Upon arrival to emergency room, patient had received imaging that was consistent with a large right-sided pleural effusion, small L sided pleural effusion and pericardial effusion. Dr. Qiu cardiothoracic surgery was consulted for drainage. Patient was admitted to family medicine service initially. Hospitalist service was called on 12/05/2018 after patient had an argument with provider about insulin / hyperglycemia management. HOSPITAL COURSE: Shortness of breath - likely 2/2 bilateral pleural effusion (R>L), less likely 2/2 pericardial effusion, possibly 2/2 decompensated systolic CHF - Clinically has noted improvement in his breathing; still reports a mild cough - not productive - Physical with no adventitious lung sounds; gross edema at b/l LE remains persistent - BNP elevated on admission - CT chest 11/30: The large right pleural effusion has increased in size. The small left pleural effusion has also increased in size. There is a pericardial effusion that has increased in size. There is a new left paramediastinal infiltrate extending into the left upper lobe and left lower lobe. There are new subsegmental patchy infiltrates in the right upper lobe and right middle lobe. There is compression atelectasis of the right lower lobe from the large right pleural effusion. - ECHO 12/01: Moderate LV systolic dysfunction, LV diastolic function normal, mild-moderate MR, mild TR with mild pulmonary HTN, mild pulmonic regurgitation, small pericardial effusion - no tamponade - CT chest 12/01: Right-sided PleurX catheter. Bilateral pleural effusions. Increased pericardial effusion now moderate. Bulky mediastinal lymphadenopathy and upper abdominal lymphadenopathy. There is a small nodule in the right adrenal gland as well. - CXR 12/05: Cardiomediastinal silhouette and lung jones are unchanged. Patchy parenchymal opacities are seen bilaterally, status quo. There is a right-sided drainage tube in place which is stable. There is thickening of the fissures which is stable. - 12/01 had Insertion of tunneled PleurX catheter right side with Dr. Qiu; 500 cc of fluid removed; cytology consistent with malignant effusion / cell block consistent with malignancy - Has remained negative fluid balance - c/w diuretic therapy; Has received Furosemide PO and IV this morning - c/w Furosemide 20 daily / Spironolactone 25 daily - As an outpatient will c/w Furosemide 40 daily - Willl have outpatient f/u with PCP, Aileen Allen and Dr. 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 - Patient is aware of his poor prognosis given his diagnosis of stage 4 cancer; is aware that this is the last stage without any curative options - Today (12/05) I have explained to him and his daughter with palliative chemotherapy means and this is for symptomatic control without curative intent - patient has expressed understanding - Patient has been on palliative chemotherapy while inpatient since 12/02 - Oncology has been on consult; Dr. Ashley Tayolr will continue to follow him as an outpatient Elevated troponin - likely 2/2 demand ischemia / Type 2 NSTEMI - Patient has not experienced typical chest pain - Troponin levels have remained stable NIDDM2 with Hyperglycemia - likely 2/2 dexamethasone use - As an outpatient. He was about to start long-acting insulin after insurance approved - Described to patient why his blood sugars are elevated and what the c omplications of such can be - patient has verbalized understanding - Advised that his diet should be limited in sugary items; however if he can't comply with this that we should continue to monitor blood glucose levels and provide adaquate coverage with insulin - Patient is agreeable to receive insulin - c/w ISS - As an outpatient; will discharge him with metformin 500 mg twice a day. Annual have outpatient follow-up with his chronic provider Aileen Allen Leukocytosis - possibly 2/2 chemotherapy - Improving - ROS negative; patient remains afebrile - Hold off on antibiotic therapy - Oncology on consultation Normocytic anemia - Hg appears to remain stable - No evidence of blood loss Constipation - likely 2/2 opioid use - c/w Bowel regimen as ordered s/p SVC syndrome - s/p Palliative radiation COPD - no evidence of exacerbation - Prior PFT showed obstructive pattern - c/w inhaled therapy as ordered GERD - c/w Omeprazole DVT prophylaxis - c/w Heparin DISCHARGE MEDICATIONS: Please see below. ALLERGIES: Please see below. PHYSICAL EXAMINATION ON DISCHARGE: Vitals (See below) General: Lying in bed, no acute distress, comfortable, AAOx3 HEENT: NC, AT, very poor dentition CVS: RRR, +S1S2 Lungs: Fair air entry b/l, no auscultated evidence of rhonchi / wheezing / rales Abdomen: Soft, nondistended, without tenderness Extremities: 3-4+ pitting edema bilaterally , - Calf tenderness LABORATORY DATA: Please see below. ACTIVITY: [As tolerated]. DISCHARGE PLAN: Follow up with Aileen Allen, Dr. Forrester and Dr. Qiu within 7 days Remain compliant with treatment plan and medications Return to the ER if you experience any problems DISPOSITION: Home with services DISCHARGE CONDITION: [Stable]. TIME SPENT ON DISCHARGE: 40 minutes Vital Signs/I&Os Vital Signs Date Time Temp Pulse Resp B/P (MAP) Pulse Ox O2 Delivery O2 Flow Rate FiO2 12/06/18 09:58 18 12/06/18 08:07 98.7 116 107/55 (72) 95 12/03/18 23:30 3.0 24 12/02/18 10:30 Room Air I&O- Last 24 Hours up to 6 AM 12/06/18 06:00 Intake Total 2100 ml Output Total 1750 ml Balance 350 ml Laboratory Data Labs 24H Laboratory Tests 2 12/05/18 16:58: Bedside Glucose (Misc Panel) 255H 12/05/18 20:52: Bedside Glucose (Misc Panel) 260H 12/06/18 07:39: Immature Granulocyte % (Auto) , White Blood Count 14.9H, Red Blood Count 3.05L, Hemoglobin 8.5L, Hematocrit 28.4L, Mean Corpuscular Volume 93.1, Mean Corpuscular Hemoglobin 27.9, Mean Corpuscular Hemoglobin Concent 29.9L, Red Cell Distribution Width 18.8H, Platelet Count 172, Lymphocytes # (Auto) , Nucleated Red Blood Cells % (auto) 0.0, Neutrophils 97H, Band Neutrophils 1, Lymphocytes (Manual) 2L, Platelet Estimate NORMAL, Hypochromasia 1+, Anisocytosis 2+, Anion Gap 5L, Glomerular Filtration Rate > 60.0, Blood Urea Nitrogen 13, Creatinine 0.42L, Sodium Level 133L, Potassium Level 4.7, Chloride Level 95L, Carbon Dioxide Level 33H, Calcium Level 8.2L, Magnesium Level 1.7L CBC/BMP Laboratory Tests 12/06/18 07:39 Red Blood Count 3.05 L, Mean Corpuscular Volume 93.1, Mean Corpuscular Hemoglobin 27.9, Mean Corpuscular Hemoglobin Concent 29.9 L, Red Cell Distribution Width 18.8 H, Lymphocytes # (Auto) , Calcium Level 8.2 L FSBS Laboratory Tests Test 12/05/18 16:58 12/05/18 20:52 Range/Units Bedside Glucose (Misc Panel) 255 260 70-105 MG/DL Microbiology Microbiology 11/30/18 Blood Culture - Final, Complete NO GROWTH AFTER 5 DAYS 11/30/18 Blood Culture - Final, Complete NO GROWTH AFTER 5 DAYS 12/01/18 Gram Stain - Final, Complete 12/01/18 Anaerobic Culture - Final, Complete 12/01/18 Body Fluid Culture - Final, Complete 12/01/18 Acid Fast Stain, Received Pending 12/01/18 Mycobacterial Culture, Received Pending 12/01/18 Fungal Smear, Received Pending 12/01/18 Fungal Culture, Received Pending Discharge Medications Scheduled Dexamethasone (Dexamethasone) 4 Mg Tablet, 4 MG PO BID, (Reported) NEW RX, HAS NOT STARTED Folic Acid (Folic Acid) 1 Mg Tablet, 1 MG PO DAILY Furosemide (Furosemide) 40 Mg Tablet, 1 TAB PO DAILY Omeprazole (Omeprazole) 20 Mg Capsule.dr, 20 MG PO DAILY, (Reported) Spironolactone (Spironolactone) 25 Mg Tablet, 25 MG PO DAILY, (Reported) Scheduled PRN Albuterol Sulf (Albuterol Sulfate) 2.5 Mg/3 Ml Vial.neb, 1 INH INH Q4H PRN for SHORTNESS OF BREATH, (Reported) Albuterol Sulfate (Proair Respiclick) 108 Mcg/Act Aer, 1 INH INH Q4-6 PRN for SHORTNESS OF BREATH, (Reported) Lidocaine (Lidocaine) 5% Adh..patch, 1 PATCH TOP DAILY PRN for PAIN, (Reported) APPLY TO BACK AND/OR ABDOMEN PATCH REMOVED TODAY 1200 Melatonin (Melatonin) 3 Mg Tablet, 3 MG PO QPM PRN for INSOMNIA, (Reported) Oxycodone HCl/Acetaminophen (Oxycodone-Acetaminophen 5-325) 1 Each Tablet, 1 TAB PO QIDP PRN for pain Polyethylene Glycol 3350 (Miralax) 119 Gm Powder, 17 GM PO DAILY PRN for CONSTIPATION dilute in 8 ounces of water or juice Senna (Senna Lax) 8.6 Mg Tablet, 1 TAB PO BIDP PRN for CONSTIPATION Allergies Coded Allergies: No Known Allergies (Unverified , 12/17/16) KALPESH CUEVAS MD December 06, 2018 13:07
== END 2018-12-06 15:43 | disposition home health service (06) | DRG 136 ==
LOC: M ED 14:10 → M ED INP 16:50 → M PCU 18:37
PROVIDERS: ADMIT General Practice; ATTEND Internal Medicine
PROC: 0W9930Z Drainage of Right Pleural Cavity with Drainage Device, Percutaneous Approach (ICD-10-PCS; principal; 2018-12-01)
DX: C34.91 Malignant neoplasm of unspecified part of right bronchus or lung (principal); I50.23 Acute on chronic systolic (congestive) heart failure; J91.0 Malignant pleural effusion; I31.3 Pericardial effusion (noninflammatory); E11.65 Type 2 diabetes mellitus with hyperglycemia; I08.3 Combined rheumatic disorders of mitral, aortic and tricuspid valves; E83.51 Hypocalcemia; K21.9 Gastro-esophageal reflux disease without esophagitis; J44.9 Chronic obstructive pulmonary disease, unspecified; K59.00 Constipation, unspecified; D72.829 Elevated white blood cell count, unspecified; Z79.899 Other long term (current) drug therapy; Z87.891 Personal history of nicotine dependence; D64.9 Anemia, unspecified

== ENCOUNTER 2018-12-09 09:28 | Emergency (ER) | payer OTHER ==
[~2018-12-09] VITALS: Ht 182.9 cm; Wt 69.0 kg
[~2018-12-09 09:28] MED LIST changes: -DEME300T2 PO; -ENOX100I3 SC; -NARC1SPR; -OXYC15TA76 PO
[2018-12-09] MEDS ORDERED: NARC1SPR (09:39)
[2018-12-09] MEDS ORDERED: NS 1,000 ML IV SCH (09:40)
[2018-12-09] MEDS: NS 1,000 ML IV ONE ×2 (09:50→10:02)
[2018-12-09 10:25] LABS: HEMATOCRIT 26.3 % (42.0-52.0); HEMOGLOBIN 7.7 g/dl (13.5-17.5); MEAN CORPUSCULAR HEMOGLOBIN 27.7 pg (27.0-33.0); MEAN CORPUSCULAR HGB CONC 29.3 g/dl (32.0-36.5); MEAN CORPUSCULAR VOLUME 94.6 fl (80.0-96.0); RED BLOOD COUNT 2.78 10^6/uL (4.30-6.10); WHITE BLOOD COUNT 5.5 10^3/uL (4.0-10.0)
[2018-12-09 10:27] LABS: PLATELET COUNT, AUTOMATED 53 10^3/uL (150-450)
[2018-12-09 10:33] LABS: INR 1.26; PROTHROMBIN TIME 15.9 SECONDS (12.1-14.4)
[2018-12-09 10:40] LABS: LYMPHOCYTES 9 % (16-52); NEUTROPHILS 91 % (35-75)
[2018-12-09 10:42] LABS: DOHLE BODIES 1+; HYPOCHROMASIA 2+; PLATELET ESTIMATE DECREASED (NORMAL)
[2018-12-09 10:54] LABS: ALBUMIN 1.2 GM/DL (3.2-5.2); BILIRUBIN,DIRECT 0.2 MG/DL (0.0-0.2); BILIRUBIN,TOTAL 0.4 MG/DL (0.2-1.0); TOTAL PROTEIN 5.3 GM/DL (6.4-8.2)
[2018-12-09] MEDS ORDERED: ISOVUE-370 76% 100ML VIAL (Q9967) As Ordered ONE (11:59)
--- NOTE | 2018-12-09 12:36 | REP ---
Clinical: Abdominal and chest pain. Technique: Axial contrast enhanced images from the thoracic inlet to the upper abdomen with coronal and sagittal re-formations using 100 ml Isovue 370 intravenous contrast material. Comparison: 12/01/2018. Findings: Current examination demonstrates a small right residual pleural effusion decreased from prior examination. Patchy ill-defined areas of infiltrate involving the left upper lobe and bilateral lower lobes along with smaller scattered bilateral ill-defined ground-glass opacities are again identified and similar to prior examination. Mediastinal/hilar adenopathy including rim enhancing centrally necrotic 4.2 cm lesion in the right pretracheal space as well as epicardial adenopathy measuring up to 2.4 cm are again identified and essentially unchanged. A small pericardial effusion is also noted and essentially stable. Underlying chronic COPD/emphysematous changes with scattered fibrosis and scarring as well as bronchiectasis remains stable. No new significant acute process is appreciated. The thoracic aorta and pulmonary vasculature appear relatively normal and unaffected. Surrounding musculoskeletal structures demonstrate osteopenia without obvious osseous metastatic focus. The Limited upper abdomen demonstrates periportal, epigastric, and retroperitoneal adenopathy is unchanged from prior examination as well as suspected right intrarenal metastatic focus measuring 1.9 cm essentially unchanged. Impression: 1. Mediastinal and bilateral parenchymal findings along with upper abdominal adenopathy and right adrenal lesion are similar to prior examination and consistent with malignancy/metastatic disease. 2. Current examination demonstrates small right pleural effusion and no significant left pleural effusion which demonstrates improvement from prior examination. Electronically Signed by Jose Dsouza MD 12/09/2018 12:28 P
--- NOTE | 2018-12-09 12:47 | REP ---
Clinical: Abdominal pain. Malignancy. Technique: Axial contrast enhanced images from the lung bases to the pubic symphysis using oral (per protocol) and 100 ml Isovue 370 intravenous contrast material. Comparison: 11/29/2018. Findings: Epigastric/upper abdominal and upper to mid retroperitoneal adenopathy is essentially unchanged. A rim enhancing centrally necrotic 2 cm right adrenal lesion is again identified and relatively stable. Complex lesion involving the right iliopsoas muscle with elements of enhancement, central necrosis, and peripheral calcifications remains unchanged. A new area of low density within the spleen measures approximately 2.5 cm and may represent focal splenic infarction versus metastatic focus (images 17-24). Small amount of pelvic ascites again identified. Liver, pancreas, gallbladder, left adrenal gland and bilateral kidneys remain normal / stable. Bilateral renal hypodensities are nonspecific and may represent cysts however wedge-shaped cortical low-density areas bilaterally may reflect small areas of renal infarction. The enteric system is without obstruction or acute inflammatory process. Scattered colonic and sigmoid diverticula noted without acute diverticulitis. Pelvis demonstrates normal bladder and stable enlarged prostate gland. Fat containing left inguinal hernia again identified and stable. No free air. Abdominal aorta without aneurysm or dissection. Osseous structures demonstrate degenerative changes without focal osseous abnormality. Impression: 1. New findings include cortical based areas of low density in the spleen and bilateral kidneys concerning for areas of infarction. 2. Stable malignant/metastatic findings including upper abdominal and retroperitoneal adenopathy, small amount of pelvic ascites, and complex lesion involving the right iliopsoas muscle are similar to prior examination. Electronically Signed by Jose Dsouza MD 12/09/2018 12:39 P
[2018-12-09 13:27] VITALS: BP 82/57
--- NOTE | 2018-12-09 13:50 | ED PDOC ---
Post-Departure Follow-Up dr stevenson and karen merrill faxed formal report of ct abd/p for fu Lisbet Valladares MD December 09, 2018 13:50
--- NOTE | 2018-12-09 13:51 | ED PDOC ---
Post-Departure Follow-Up ct chest also faxed to both providers. Lisbet Valladares MD December 09, 2018 13:51
--- NOTE | 2018-12-09 20:47 | ECGEPIP ---
[facility] - ED Test Date: 2018-12-09 Pat Name: BUZZ MILLER Department: Room: - Gender: Male Rv Service Technician: [place] : 1960 Requested By: Crystal Vick Order Number: [id number] Reading MD: Crystal Vick Measurements Intervals [place] Rate: 126 P: 81 NH: 166 QRS: 41 QRSD: 94 T: 72 QT: 298 QTc: 432 Interpretive Statements SINUS TACHYCARDIA MINIMAL ST DEPRESSION ABNORMAL RHYTHM ECG LOW VOLTAGE LIMB DECREASED RATE 11/30/18 Electronically Signed on 12-09-2018 20:46:53 EDT by Crystal Vick
[2018-12-11] MEDS ORDERED: OXYC1TAB23 PO (08:20)
[2018-12-15] MEDS ORDERED: ENOX100I3 SC (15:26)
[2018-12-21] MEDS ORDERED: OXYC15TA76 PO (12:26)
[2018-12-21] MEDS ORDERED: DEME300T2 PO (12:28)
== END 2018-12-09 13:52 | disposition home or self-care (01) ==
LOC: M ED 09:28
DX: C34.91 Malignant neoplasm of unspecified part of right bronchus or lung (principal); D69.6 Thrombocytopenia, unspecified; R22.41 Localized swelling, mass and lump, right lower limb; I50.9 Heart failure, unspecified; I87.1 Compression of vein; D64.9 Anemia, unspecified; J44.9 Chronic obstructive pulmonary disease, unspecified; E09.9 Drug or chemical induced diabetes mellitus without complications; Z87.891 Personal history of nicotine dependence; Z79.899 Other long term (current) drug therapy
CPT/HCPCS: 36415; 71260; 74177; 80047; 80076; 83605; 83690; 85025; 85049; 85055; 85610; 93005; 93041; 99285; Q9967

== ENCOUNTER → 2018-12-09 | Outpatient (CLI) | payer OTHER ==
[~2018-12-09] MED LIST changes: +ALBU83IN INH; +BASA100I SC; +DEME300T2 PO; +ENOX100I3 SC; +FURO20TA2 PO; +LIDO1PAD TOP; +MELA3TAB41 PO; +METF500T13 PO; +MIRA3350 PO; +NARC1SPR; +OMEP-218 PO; +OXYC15TA76 PO; +OXYC1TAB23 PO; +SENN18TA PO
--- NOTE | 2018-12-09 08:44 | REP ---
Clinical: Pleural effusion. Technique: PA and lateral. Comparison: 12/06/2018. Findings: Chest tube at the right base remain stable. Small bilateral pleural reactions and minimal residual pleural fluid cannot be excluded. Lung jones demonstrate diffuse chronic stable interstitial changes. Mediastinum and cardiac silhouette are within normal limits. Skeletal structures are intact. Impression: Cannot exclude very minimal residual pleural effusion/reaction. Electronically Signed by Jose Dsouza MD 12/09/2018 08:35 A
== END ==
LOC: M WUC 08:00
PROVIDERS: ATTEND Thoracic Surgery (Cardiothoracic Vascular Surgery)
DX: C77.1 Secondary and unspecified malignant neoplasm of intrathoracic lymph nodes (principal); J90 Pleural effusion, not elsewhere classified

== ENCOUNTER 2018-12-22 10:03 | Emergency (ER) | payer MEDICAID, OTHER ==
[~2018-12-22] VITALS: Ht 182.9 cm; Wt 67.7 kg
[2018-12-22 10:03] VITALS: BP 81/59
[~2018-12-22 10:03] MED LIST changes: +DEME300T2 PO; +ENOX100I3 SC; +NARC1SPR; +OXYC15TA76 PO
[2018-12-22] MEDS ORDERED: DEME300T2 PO (10:12)
== END 2018-12-22 11:25 | disposition left against medical advice (07) ==
LOC: M ED 10:03
DX: Z53.29 Procedure and treatment not carried out because of patient's decision for other reasons (principal)